=== PATIENT | female | born 1950 | race Caucasian/White ===

== ENCOUNTER 2022-10-27 16:50 | Emergency (ER) | payer OTHER ==
--- OUTSIDE RECORDS SUMMARY | 2022-10-27 16:56 | XMS REPORT | Continuity of Care Document ---
:[address] [facility] t Address [address] [place] [address] [address] [place] [address] Care Team Providers Name Role Phone Yisel Diehl Primary Care Physician Team, [facility] Attending Clinician Unavailsandra Alvarado RN, Jennifer Attending Clinician Unavailable Only, Ang Db Test Attending Clinician Unavailable Martha Weiner Attending Clinician MARTHA OSCAR Attending Clinician Unavailable FORREST SANCHEZ Attending Clinician Unavailable Doctor Unassigned, [place] Attending Clinician Unavailable YAIMA HANLEY Attending Clinician Unavailable Yaima Godinez Attending Clinician Amanda REAL, Alison Pruett Attending Clinician Unavailable Adarsh Cevallos PA-C Attending Clinician LIVIER OJEDA Attending Clinician Unavailable Geronimo ESPINOZA, Livier Attending Clinician SYLVIA DUENAS Attending Clinician Unavailable Sylvia Duenas NP Attending Clinician JEROME PALACIOS Attending Clinician Unavailable Jerome Palacios MD Attending Clinician Yisel Diehl Attending Clinician Kaela Hui Attending Clinician KAELA HUI Attending Clinician Unavailable Lab, Adc Fam Pob I Attending Clinician Unavailable Marlys Diop Attending Clinician Freddy Hadley Attending Clinician FREDDY METCALF Attending Clinician Unavailable RADIOLOGY Attending Clinician Unavailable Hair Monahan Attending Clinician SYLVIA DUENAS Admitting Clinician Unavailable FREDDY METCALF Admitting Clinician Unavailable DARIN DODD II Admitting Clinician Unavailable YISEL DIEHL Admitting Clinician Unavailable Payers Payer Name Policy Type Policy Number Effective Date Expiration Date S ource Problems Condition Condition Condition Status Onset Resolution Last Treating Co mments Source Name Details Category Date Date Treatment Clinician Date RESCHEDULE RESCHEDUL Diagnosis Active 2016-12-13 Memharini E Active 11-19 10:24:00 l 11/19/2016 00:00: Kalia maya [address] CERVICALGI Diagnosis Active 2016-11-13 Memoria A, CERVICALGI 10-28 06:07:00 l CERVICAL A, 00:00: [place] DISC CERVICAL 00 DEGENERATI DISC ON DEGENERATI ON Active 10/28/2016 [facility] BEDDED BEDDED Diagnosis Active 2015-102016-10-16 Nc moria OUTPATIENT OUTPATIENT 07:14:00 l /CT GUIDED /CT GUIDED 00:00: Jose chery NECK BX NECK BX 00 Active 10/09/2016 [facility] M46.22 - M46.22 - Diagnosis Active 2015-102016-10-10 Memoria "OSTEOMYEL "OSTEOMYEL 12-08 14:05:00 l ITIS OF ITIS OF 00:01: Berhane VERTEBRA, VERTEBRA, 00 CER CER Active 10/07/2016 MARGOT Last Hyperlipid Hyperlipi Problem Resolve 2017-03-22 Anupama emia demia d 04:16:12 l (disorder) (disorder) Jose chery Resolved Problem 03/22/2017 [facility], STEVEN Last, STEVEN [place] Hypertensi Hypertens Problem Resolve 2017-03-22 Memoria ve zafar d 04:16:12 l disorder, disorder, Herm rene systemic systemic arterial arterial (disorder) (disorder) Resolved Problem 03/22/2017 [facility], STEVEN Last, OPIFidencio [place] Transient Transient Problem Resolve 2017-03-22 Memoria ischemic ischemic d 04:16:12 l attack attack [place] (disorder) (disorder) Resolved Problem 03/22/2017 [facility], STEVEN Last, OPIFidencio [place] Chronic Chronic Problem Active 2017-03-22 Nc moristeph obstructiv obstructiv 04:16:12 l e lung e lung [place] disease disease (disorder) (disorder) Active Problem 03/22/2017 [facility] STEVEN Last Degenerati Degenerat Problem Active 2017-03-22 Memoria on of ion of 04:16:12 l cervical cervical Kalia n interverte interverte bral disc bral disc (disorder) (disorder) Active Problem 03/22/2017 [facility] STEVEN Last Obesity Obesity Problem Active 2017-03-22 Me moria (disorder) (disorder) 04:16:12 l Active [place] Problem 03/22/2017 [facility] STEVEN Last Obstructiv Obstructi Problem Active 2017-03-22 Memoria e sleep ve sleep 04:16:12 l apnea apnea [place] syndrome syndrome (disorder) (disorder) Active Problem 03/22/2017 [facility] STEVEN Last OTHER OTHER Diagnosis Active 2016-12-13 Mem oria CERVICAL CERVICAL 10:24:00 l DISC DISC [place] DEGENERATI DEGENERATI ON, HIGH C ON, HIGH C Active [facility] CERVICALGI CERVICALG Diagnosis Active 2016-12-13 Memoria A IA Active 10:24:[address] [facility] No known No known Disease Unive rs active active ity of problems problems [facility] Allergies, Adverse Reactions, Alerts Allergy Allergy Status Severity Reaction(s) Onset Inactive Treating Comm ents Source Name Type Date Date Clinician Morphine Propensi Active Swelling 0 Univ ers ty to 06 ity of adverse 00:00: [place] reaction 00 Medical s Branch MORPHINE DRUG Active Swelling 0 Univer s INGREDI -06 ity of 00:00: [place] 00 Medical Branch MORPHINE DRUG Active Swelling Univer s INGREDI 05-05 ity of 00:00: Medical [place] Morphine Propensi Active Swelling arm Univ ers ty to 05-05 ity of adverse 00:00: [place] reaction 00 [facility] NO KNOWN Drug Active Univers ALLERGIE Class ity of S [facility] morphine morphine Active Justen Last Social History Social Habit Start Date Stop Date Quantity Comments Source History of Smokes tobacco University of tobacco use daily [facility] Exposure to 2022-02-09 2022-02-19 Not sure [facility] SARS-CoV-2 00:00:00 12:36:00 [facility] (event) [place] Tobacco use and 2021-04-16 2021-04-16 Smokeless tobacco Un iversity of exposure 00:00:00 00:00:00 non-user [facility] Social History 2016-10-07 2016-10-07 [facility] 18:49:18 18:49:18 [birth year] [facility] y of 00:00:00 00:00:00 [facility] Smoking Status Start Date Stop Date Source Smokes tobacco daily 2021-04-16 00:00:00 Univers ity of [facility] Unknown if ever smoked [facility] y of [facility] Medications Ordered Filled Start Stop Current Ordering Indication Dosage Frequency Signature Comments Components Source Medication Medication Date Date Medication? Clinician (SIG) Name Name traMADoL 2021- No [id number] 50mg 50 mg, U nivers (ULTRAM) 12-03 Oral, ONCE ity of tablet 50 03:15: 02:25 NOW, 1 [place] mg 00 :00 dose, On [facility] 12/02/21 at 2115, CYNTHIA ketorolac 2021- No [id number] 30mg 30 mg, Univers (TORADOL) 12-03 Intramuscu ity of injection 03:15: 02:25 lar, ONCE, [place] 30 mg 00 :00 1 dose, On [facility] 12/02/21 at 2115, CYNTHIA cyclobenzap 2021- No [id number] 10mg 10 mg, Univers rine 12-03 Oral, ONCE ity of (FLEXERIL) 03:15: 02:25 NOW, 1 [place] tablet 10 00 :00 dose, On Medica l mg Mon Branch 12/02/21 at 2115, CYNTHIA dexamethaso 2021- No [id number] 10mg 10 mg, Univers ne 12-03 Intramuscu ity of (DECADRON 03:15: 02:25 lar, ONCE, [place] PHOSPHATE) 00 :00 1 dose, On Med ical injection Mon Branch 10 mg 12/02/21 at 211, STAT predniSONE 2021- No [id number] 40mg Take 2 Univers 20 mg 12-03 tablets by ity of tablet 00:00: 05:59 mouth [place] 00 :00 daily for Medical 5 days. Branch cyclobenzap Yes [id number] 10mg Take 1 Univers rine 10 mg 2-21 tablet by ity of tablet 00:00: mouth 3 [place] 00 (three) Medical times Branch daily as needed for Muscle Spasms. cyclobenzap Yes [id number] 10mg Take 1 Univers rine 10 mg 2-21 tablet by ity of tablet 00:00: mouth 3 [place] 00 (three) Medical times Branch daily as needed for Muscle Spasms. cyclobenzap Yes [id number] 10mg Take 1 Univers rine 10 mg 2-21 tablet by ity of tablet 00:00: mouth 3 [place] 00 (three) Medical times Branch daily as needed for Muscle Spasms. cyclobenzap Yes [id number] 10mg Take 1 Univers rine 10 mg 2-21 tablet by ity of tablet 00:00: mouth 3 [place] 00 (three) Medical times Branch daily as needed for Muscle Spasms. cyclobenzap Yes [id number] 10mg Take 1 Univers rine 10 mg 2-21 tablet by ity of tablet 00:00: mouth 3 [place] 00 (three) Medical times Branch daily as needed for Muscle Spasms. methylPREDN 2020-10 Yes [id number] Take by Univers ISolone 4 2-30 mouth ity of mg tablets 00:00: [place]-INSTRU [place] 00 CTIONS. Medical follow Branch package directions methylPREDN 2020-10 Yes [id number] Take by Univers ISolone 4 2-30 mouth ity of mg tablets 00:00: [place]-INSTRU [place] 00 CTIONS. Medical follow Branch package directions methylPREDN 2020-10 Yes [id number] Take by Univers ISolone 4 2-30 mouth ity of mg tablets 00:00: [place]-INSTRU [place] 00 CTIONS. Medical follow Branch package directions methylPREDN 2020-10 Yes [id number] Take by Univers ISolone 4 2-30 mouth ity of mg tablets 00:00: SEE-INSTRU [place] 00 CTIONS. Medical follow Branch package directions methylPREDN 2020-10 Yes [id number] Take by Univers ISolone 4 2-30 mouth ity of mg tablets 00:00: SEE-INSTRU [place] 00 CTIONS. Medical follow Branch package directions methylPREDN 2020-10 Yes [id number] Take by Univers ISolone 4 2-30 mouth ity of mg tablets 00:00: SEE-INSTRU [place] 00 CTIONS. Medical follow Branch package directions methylPREDN 2020-10 Yes [id number] Take by Univers ISolone 4 2-30 mouth ity of mg tablets 00:00: SEE-INSTRU [place] 00 CTIONS. Medical follow Branch package directions methylPREDN 2020-10 Yes [id number] Take by Univers ISolone 4 2-30 mouth ity of mg tablets 00:00: [place]-INSTRU [place] 00 CTIONS. Medical follow Branch package directions methylPREDN 2020-10 Yes [id number] Take by Univers ISolone 4 2-30 mouth ity of mg tablets 00:00: [place]-INSTRU [place] 00 CTIONS. Medical follow Branch package directions traMADoL 2020-10- No 50mg 50 mg, Univer s (ULTRAM) 10-09 Oral, ity of tablet 50 23:30: 22:35 ONCE, 1 [place] mg [place] :[place] dose, On Medical Thu Branch 10/09/21 at 1730, Routine ibuprofen 2020-10- No 600mg 600 mg, Uni vers (IBU) 10-09 Oral, ity of tablet 600 23:15: 22:34 ONCE, 1 [place] mg 00 :00 dose, On Medical Thu Branch 10/09/21 at 1715, CYNTHIA gabapentin 2020-10- No 300mg 300 mg, Un lisa (NEURONTIN) 10-09 Oral, ity of capsule 300 23:15: 22:34 ONCE, 1 [place] mg 00 :[place] dose, On Medical Wed Branch 10/09/21 at 1715, CYNTHIA cyclobenzap 2020-10- No 10mg 10 mg, Uni vers rine 10-09 Oral, ity of (FLEXERIL) 23:15: 22:34 ONCE, 1 [place] tablet 10 00 :00 dose, On Medica l mg Wed Branch 10/09/21 at 1715, Routine AZITHROMYCI 2020-10- No Take by Un lisa N 10-09 mouth. ity of (ZITHROMAX 19:22: 00:00 [place] Z-ROSALINDA ORAL) 15 :00 Medical Branch promethazin 2020-10- No [id number] 5mL Take 5 mL Univers e-codeine 10-09 by mouth 4 ity of 6.25-10 19:22: 00:00 (four) [place] mg/5 mL 15 :00 times Medical syrup daily as Branch needed for Cough. gabapentin 2020-10 Yes [id number] 300mg Take 1 Univers 300 mg 2-29 capsule by ity of capsule 00:00: mouth 3 [place] 00 (three) Medical times Branch daily as needed for Pain (scale 4-6) or Pain (scale 7-10). gabapentin 2020-10 Yes [id number] 300mg Take 1 Univers 300 mg 2-29 capsule by ity of capsule 00:00: mouth 3 [place] 00 (three) Medical times Branch daily as needed for Pain (scale 4-6) or Pain (scale 7-10). gabapentin 2020-10 Yes [id number] 300mg Take 1 Univers 300 mg 2-29 capsule by ity of capsule 00:00: mouth 3 [place] 00 (three) Medical times Branch daily as needed for Pain (scale 4-6) or Pain (scale 7-10). gabapentin 2020-10 Yes [id number] 300mg Take 1 Univers 300 mg 2-29 capsule by ity of capsule 00:00: mouth 3 [place] 00 (three) Medical times Branch daily as needed for Pain (scale 4-6) or Pain (scale 7-10). gabapentin 2020-10 Yes [id number] 300mg Take 1 Univers 300 mg 2-29 capsule by ity of capsule 00:00: mouth 3 00 (three) Medical times Branch daily as needed for Pain (scale 4-6) or Pain (scale 7-10). gabapentin 2020-10 Yes [id number] 300mg Take 1 Univers 300 mg 2-29 capsule by ity of capsule 00:00: mouth 3 [place] 00 (three) Medical times Branch daily as needed for Pain (scale 4-6) or Pain (scale 7-10). gabapentin 2020-10 Yes [id number] 300mg Take 1 Univers 300 mg 2-29 capsule by ity of capsule 00:00: mouth 3 [place] 00 (three) Medical times Branch daily as needed for Pain (scale 4-6) or Pain (scale 7-10). gabapentin 2020-10 Yes [id number] 300mg Take 1 Univers 300 mg 2-29 capsule by ity of capsule 00:00: mouth 3 [place] 00 (three) Medical times Branch daily as needed for Pain (scale 4-6) or Pain (scale 7-10). gabapentin 2020-10 Yes [id number] 300mg Take 1 Univers 300 mg 2-29 capsule by ity of capsule 00:00: mouth 3 (three) Medical times Branch daily as needed for Pain (scale 4-6) or Pain (scale 7-10). etodolac 2020-10- No [id number] 300mg Take 1 Univers 300 mg 2-29 -06 capsule by ity of capsule 00:00: 05:59 mouth 3 [place] 00 :00 (three) Medical times Branch daily with meals for 7 days. etodolac 2020-10- No [id number] 300mg Take 1 Univers 300 mg 2-29 -06 capsule by ity of capsule 00:00: 05:59 mouth 3 [place] 00 :00 (three) Medical times Branch daily with meals for 7 days. etodolac 2020-10- No [id number] 300mg Take 1 Univers 300 mg 2-29 -06 capsule by ity of capsule 00:00: 05:59 mouth 3 [place] 00 :00 (three) Medical times Branch daily with meals for 7 days. etodolac 2020-10- No [id number] 300mg Take 1 Univers 300 mg 2-29 -06 capsule by ity of capsule 00:00: 05:59 mouth 3 [place] 00 :00 (three) Medical times Branch daily with meals for 7 days. methocarbam 2020-10- No [id number] 1500mg Take 2 Univers oL 750 mg 10-15 tablets by ity of tablet 00:00: 05:59 mouth 4 [place] 00 :00 (four) Medical times [place] daily for 5 days. methocarbam 2020-10- No [id number] 1500mg Take 2 Univers oL 750 mg 10-15 tablets by ity of tablet 00:00: 05:59 mouth 4 [place] 00 :00 (four) Medical times [place] daily for 5 days. aspirin 81 2020-0 Yes [id number] 81mg Take 81 mg Univers mg EC 3-16 by mouth ity of tablet 21:28: daily. [address] aspirin 81 2020-0 Yes [id number] 81mg Take 81 mg Univers mg EC 3-16 by mouth ity of tablet 21:28: daily. [address] aspirin 81 2020-0 Yes [id number] 81mg Take 81 mg Univers mg EC 3-16 by mouth ity of tablet 21:28: daily. [address] aspirin 81 2020-0 Yes [id number] 81mg Take 81 mg Univers mg EC 3-16 by mouth ity of tablet 21:28: daily. [address] aspirin 81 2020-0 Yes [id number] 81mg Take 81 mg Univers mg EC 3-16 by mouth ity of tablet 21:28: daily. [address] aspirin 81 2020-0 Yes [id number] 81mg Take 81 mg Univers mg EC 3-16 by mouth ity of tablet 21:28: daily. [address] aspirin 81 2020-0 Yes [id number] 81mg Take 81 mg Univers mg EC 3-16 by mouth ity of tablet 21:28: daily. [address] aspirin 81 2020-0 Yes [id number] 81mg Take 81 mg Univers mg EC 3-16 by mouth ity of tablet 21:28: daily. [address] aspirin 81 2020-0 Yes [id number] 81mg Take 81 mg Univers mg EC 3-16 by mouth ity of tablet 21:28: daily. [address] clonazePAM 2020-0 Yes [id number] 1mg Take 1 mg Univers 1 mg tablet 3-16 by mouth ity of 21:28: daily. [place] 56 Medical Branch promethazin 2020-0 Yes [id number] 5mL Take 5 mL Univers e-codeine 3-16 by mouth 4 ity of 6.25-10 21:28: (four) [place] mg/5 mL 56 times Medical syrup daily as Branch needed for Cough. metoprolol 2020-0 Yes [id number] 50mg Take 50 mg Univers tartrate 50 3-16 by mouth 2 it y of mg tablet 21:28: (two) [place] 56 times Medical daily. Branch albuterol 2020-0 Yes [id number] 2{puff} Inhale 2 Univers (VENTOLIN 3-16 Puffs ity of HFA) 90 21:28: every 6 [place] mcg/actuati 56 (six) Medical on inhaler hours as Branc h needed for Wheezing or Shortness of Breath. HYDROcodone 2020-0 Yes [id number] 1{tbl} Take 1 Univers -acetaminop 3-16 tablet by ity of hen 7.5-325 21:28: mouth [place] mg per 56 every 6 Medical tablet (six) Branch hours as needed for Pain. clonazePAM 2020-0 Yes [id number] 1mg Take 1 mg Univers 1 mg tablet 3-16 by mouth ity of 21:28: daily. [place] [address] Medical Branch promethazin 2020-0 Yes [id number] 5mL Take 5 mL Univers e-codeine 3-16 by mouth 4 ity of 6.25-10 21:28: (four) [place] mg/5 mL 56 times Medical syrup daily as Branch needed for Cough. metoprolol 2020-0 Yes [id number] 50mg Take 50 mg Univers tartrate 50 3-16 by mouth 2 it y of mg tablet 21:28: (two) [place] 56 times Medical daily. Branch albuterol 2020-0 Yes [id number] 2{puff} Inhale 2 Univers (VENTOLIN 3-16 Puffs ity of HFA) 90 21:28: every 6 [place] mcg/actuati 56 (six) Medical on inhaler hours as Branc h needed for Wheezing or Shortness of Breath. HYDROcodone 2020-0 Yes [id number] 1{tbl} Take 1 Univers -acetaminop 3-16 tablet by ity of hen 7.5-325 21:28: mouth [place] mg per 56 every 6 Medical tablet (six) Branch hours as needed for Pain. clonazePAM 2020-0 Yes [id number] 1mg Take 1 mg Univers 1 mg tablet 3-16 by mouth ity of 21:28: daily. [place] [address] Medical Branch promethazin 2020-0 Yes [id number] 5mL Take 5 mL Univers e-codeine 3-16 by mouth 4 ity of 6.25-10 21:28: (four) [place] mg/5 mL 56 times Medical syrup daily as Branch needed for Cough. metoprolol 2020-0 Yes [id number] 50mg Take 50 mg Univers tartrate 50 3-16 by mouth 2 it y of mg tablet 21:28: (two) [place] 56 times Medical daily. Branch albuterol 2020-0 Yes [id number] 2{puff} Inhale 2 Univers (VENTOLIN 3-16 Puffs ity of HFA) 90 21:28: every 6 [place] mcg/actuati 56 (six) Medical on inhaler hours as Branc h needed for Wheezing or Shortness of Breath. HYDROcodone 2020-0 Yes [id number] 1{tbl} Take 1 Univers -acetaminop 3-16 tablet by ity of hen 7.5-325 21:28: mouth [place] mg per 56 every 6 Medical tablet (six) Branch hours as needed for Pain. clonazePAM 2020-0 Yes [id number] 1mg Take 1 mg Univers 1 mg tablet 3-16 by mouth ity of 21:28: daily. [place] [address] Medical Branch promethazin 2020-0 Yes [id number] 5mL Take 5 mL Univers e-codeine 3-16 by mouth 4 ity of 6.25-10 21:28: (four) [place] mg/5 mL 56 times Medical syrup daily as Branch needed for Cough. metoprolol 2020-0 Yes [id number] 50mg Take 50 mg Univers tartrate 50 3-16 by mouth 2 it y of mg tablet 21:28: (two) [place] 56 times Medical daily. Branch albuterol 2020-0 Yes [id number] 2{puff} Inhale 2 Univers (VENTOLIN 3-16 Puffs ity of HFA) 90 21:28: every 6 [place] mcg/actuati 56 (six) Medical on inhaler hours as Branc h needed for Wheezing or Shortness of Breath. HYDROcodone 2020-0 Yes [id number] 1{tbl} Take 1 Univers -acetaminop 3-16 tablet by ity of hen 7.5-325 21:28: mouth [place] mg per 56 every 6 Medical tablet (six) Branch hours as needed for Pain. clonazePAM 2020-0 Yes [id number] 1mg Take 1 mg Univers 1 mg tablet 3-16 by mouth ity of 21:28: daily. [place] [address] Medical Branch promethazin 2020-0 Yes [id number] 5mL Take 5 mL Univers e-codeine 3-16 by mouth 4 ity of 6.25-10 21:28: (four) [place] mg/5 mL 56 times Medical syrup daily as Branch needed for Cough. metoprolol 2020-0 Yes [id number] 50mg Take 50 mg Univers tartrate 50 3-16 by mouth 2 it y of mg tablet 21:28: (two) [place] 56 times Medical daily. Branch albuterol 2020-0 Yes [id number] 2{puff} Inhale 2 Univers (VENTOLIN 3-16 Puffs ity of HFA) 90 21:28: every 6 [place] mcg/actuati 56 (six) Medical on inhaler hours as Branc h needed for Wheezing or Shortness of Breath. HYDROcodone 2020-0 Yes [id number] 1{tbl} Take 1 Univers -acetaminop 3-16 tablet by ity of hen 7.5-325 21:28: mouth [place] mg per 56 every 6 Medical tablet (six) Branch hours as needed for Pain. clonazePAM 2020-0 Yes [id number] 1mg Take 1 mg Univers 1 mg tablet 3-16 by mouth ity of 21:28: daily. [place] [address] Medical Branch promethazin 2020-0 Yes [id number] 5mL Take 5 mL Univers e-codeine 3-16 by mouth 4 ity of 6.25-10 21:28: (four) [place] mg/5 mL 56 times Medical syrup daily as Branch needed for Cough. metoprolol 2020-0 Yes [id number] 50mg Take 50 mg Univers tartrate 50 3-16 by mouth 2 it y of mg tablet 21:28: (two) [place] 56 times Medical daily. Branch albuterol 2020-0 Yes [id number] 2{puff} Inhale 2 Univers (VENTOLIN 3-16 Puffs ity of HFA) 90 21:28: every 6 [place] mcg/actuati 56 (six) Medical on inhaler hours as Branc h needed for Wheezing or Shortness of Breath. HYDROcodone 2020-0 Yes [id number] 1{tbl} Take 1 Univers -acetaminop 3-16 tablet by ity of hen 7.5-325 21:28: mouth [place] mg per 56 every 6 Medical tablet (six) Branch hours as needed for Pain. clonazePAM 2020-0 Yes [id number] 1mg Take 1 mg Univers 1 mg tablet 3-16 by mouth ity of 21:28: daily. [place] [address] Medical Branch promethazin 2020-0 Yes [id number] 5mL Take 5 mL Univers e-codeine 3-16 by mouth 4 ity of 6.25-10 21:28: (four) [place] mg/5 mL 56 times Medical syrup daily as Branch needed for Cough. metoprolol 2020-0 Yes [id number] 50mg Take 50 mg Univers tartrate 50 3-16 by mouth 2 it y of mg tablet 21:28: (two) [place] 56 times Medical daily. Branch albuterol 2020-0 Yes [id number] 2{puff} Inhale 2 Univers (VENTOLIN 3-16 Puffs ity of HFA) 90 21:28: every 6 [place] mcg/actuati 56 (six) Medical on inhaler hours as Branc h needed for Wheezing or Shortness of Breath. HYDROcodone 2020-0 Yes [id number] 1{tbl} Take 1 Univers -acetaminop 3-16 tablet by ity of hen 7.5-325 21:28: mouth [place] mg per 56 every 6 Medical tablet (six) Branch hours as needed for Pain. clonazePAM 2020-0 Yes [id number] 1mg Take 1 mg Univers 1 mg tablet 3-16 by mouth ity of 21:28: daily. [place] [address] Medical Branch promethazin 2020-0 Yes [id number] 5mL Take 5 mL Univers e-codeine 3-16 by mouth 4 ity of 6.25-10 21:28: (four) [place] mg/5 mL 56 times Medical syrup daily as Branch needed for Cough. metoprolol 2020-0 Yes [id number] 50mg Take 50 mg Univers tartrate 50 3-16 by mouth 2 it y of mg tablet 21:28: (two) [place] 56 times Medical daily. Branch albuterol 2020-0 Yes [id number] 2{puff} Inhale 2 Univers (VENTOLIN 3-16 Puffs ity of HFA) 90 21:28: every 6 [place] mcg/actuati 56 (six) Medical on inhaler hours as Branc h needed for Wheezing or Shortness of Breath. HYDROcodone 2020-0 Yes [id number] 1{tbl} Take 1 Univers -acetaminop 3-16 tablet by ity of hen 7.5-325 21:28: mouth [place] mg per 56 every 6 Medical tablet (six) Branch hours as needed for Pain. clonazePAM 2020-0 Yes [id number] 1mg Take 1 mg Univers 1 mg tablet 3-16 by mouth ity of 21:28: daily. [address] Branch promethazin 2020-0 Yes [id number] 5mL Take 5 mL Univers e-codeine 3-16 by mouth 4 ity of 6.25-10 21:28: (four) [place] mg/5 mL 56 times Medical syrup daily as Branch needed for Cough. metoprolol 2020-0 Yes [id number] 50mg Take 50 mg Univers tartrate 50 3-16 by mouth 2 it y of mg tablet 21:28: (two) [place] 56 times Medical daily. Branch albuterol 2020-0 Yes [id number] 2{puff} Inhale 2 Univers (VENTOLIN 3-16 Puffs ity of HFA) 90 21:28: every 6 [place] mcg/actuati 56 (six) Medical on inhaler hours as Branc h needed for Wheezing or Shortness of Breath. HYDROcodone 2020-0 Yes [id number] 1{tbl} Take 1 Univers -acetaminop 3-16 tablet by ity of hen 7.5-325 21:28: mouth [place] mg per 56 every 6 Medical tablet (six) Branch hours as needed for Pain. aspirin 81 2020-0 Yes [id number] 81mg Take 81 mg Univers mg EC 3-16 by mouth ity of tablet 16:28: daily. [address] aspirin 81 2020-0 Yes [id number] 81mg Take 81 mg Univers mg EC 3-16 by mouth ity of tablet 16:28: daily. [address] aspirin 81 2020-0 Yes [id number] 81mg Take 81 mg Univers mg EC 3-16 by mouth ity of tablet 16:28: daily. [address] aspirin 81 2020-0 Yes [id number] 81mg Take 81 mg Univers mg EC 3-16 by mouth ity of tablet 16:28: daily. [address] aspirin 81 2020-0 Yes [id number] 81mg Take 81 mg Univers mg EC 3-16 by mouth ity of tablet 16:28: daily. [address] aspirin 81 2020-0 Yes [id number] 81mg Take 81 mg Univers mg EC 3-16 by mouth ity of tablet 16:28: daily. [address] aspirin 81 2020-0 Yes [id number] 81mg Take 81 mg Univers mg EC 3-16 by mouth ity of tablet 16:28: daily. [address] aspirin 81 2020-0 Yes [id number] 81mg Take 81 mg Univers mg EC 3-16 by mouth ity of tablet 16:28: daily. [address] aspirin 81 2020-0 Yes [id number] 81mg Take 81 mg Univers mg EC 3-16 by mouth ity of tablet 16:28: daily. [address] clonazePAM 2020-0 Yes [id number] 1mg Take 1 mg Univers 1 mg tablet 3-16 by mouth ity of 16:28: daily. [address] metoprolol 2020-0 Yes [id number] 50mg Take 50 mg Univers tartrate 50 3-16 by mouth 2 it y of mg tablet 16:28: (two) [place] 56 times Medical daily. Branch albuterol 2020-0 Yes [id number] 2{puff} Inhale 2 Univers (VENTOLIN 3-16 Puffs ity of HFA) 90 16:28: every 6 [place] mcg/actuati 56 (six) Medical on inhaler hours as Branc h needed for Wheezing or Shortness of Breath. HYDROcodone 2020-0 Yes [id number] 1{tbl} Take 1 [facility] -acetaminop 3-16 tablet by ity of hen 7.5-325 16:28: mouth [place] mg per 56 every 6 Medical tablet (six) Branch hours as needed for Pain. clonazePAM 2020-0 Yes [id number] 1mg Take 1 mg [facility] 1 mg tablet 3-16 by mouth ity of 16:28: daily. [address] metoprolol 2020-0 Yes [id number] 50mg Take 50 mg [facility] tartrate 50 3-16 by mouth 2 it y of mg tablet 16:28: (two) [place] 56 times Medical daily. Branch albuterol 2020-0 Yes [id number] 2{puff} Inhale 2 [facility] (VENTOLIN 3-16 Puffs ity of HFA) 90 16:28: every 6 [place] mcg/actuati 56 (six) Medical on inhaler hours as Branc h needed for Wheezing or Shortness of Breath. HYDROcodone 2020-0 Yes [id number] 1{tbl} Take 1 [facility] -acetaminop 3-16 tablet by ity of hen 7.5-325 16:28: mouth [place] mg per 56 every 6 Medical tablet (six) Branch hours as needed for Pain. clonazePAM 2020-0 Yes [id number] 1mg Take 1 mg [facility] 1 mg tablet 3-16 by mouth ity of 16:28: daily. [address] metoprolol 2020-0 Yes [id number] 50mg Take 50 mg [facility] tartrate 50 3-16 by mouth 2 it y of mg tablet 16:28: (two) [place] 56 times Medical daily. Branch albuterol 2020-0 Yes [id number] 2{puff} Inhale 2 [facility] (VENTOLIN 3-16 Puffs ity of HFA) 90 16:28: every 6 [place] mcg/actuati 56 (six) Medical on inhaler hours as Branc h needed for Wheezing or Shortness of Breath. HYDROcodone 2020-0 Yes [id number] 1{tbl} Take 1 [facility] -acetaminop 3-16 tablet by ity of hen 7.5-325 16:28: mouth [place] mg per 56 every 6 Medical tablet (six) Branch hours as needed for Pain. clonazePAM 2020-0 Yes [id number] 1mg Take 1 mg [facility] 1 mg tablet 3-16 by mouth ity of 16:28: daily. [address] metoprolol 2020-0 Yes [id number] 50mg Take 50 mg [facility] tartrate 50 3-16 by mouth 2 it y of mg tablet 16:28: (two) [place] 56 times Medical daily. Branch albuterol 2020-0 Yes [id number] 2{puff} Inhale 2 [facility] (VENTOLIN 3-16 Puffs ity of HFA) 90 16:28: every 6 [place] mcg/actuati 56 (six) Medical on inhaler hours as Branc h needed for Wheezing or Shortness of Breath. HYDROcodone 2020-0 Yes [id number] 1{tbl} Take 1 [facility] -acetaminop 3-16 tablet by ity of hen 7.5-325 16:28: mouth [place] mg per 56 every 6 Medical tablet (six) Branch hours as needed for Pain. clonazePAM 2020-0 Yes [id number] 1mg Take 1 mg [facility] 1 mg tablet 3-16 by mouth ity of 16:28: daily. [address] metoprolol 2020-0 Yes [id number] 50mg Take 50 mg [facility] tartrate 50 3-16 by mouth 2 it y of mg tablet 16:28: (two) [place] 56 times Medical daily. Branch albuterol 2020-0 Yes [id number] 2{puff} Inhale 2 [facility] (VENTOLIN 3-16 Puffs ity of HFA) 90 16:28: every 6 [place] mcg/actuati 56 (six) Medical on inhaler hours as Branc h needed for Wheezing or Shortness of Breath. HYDROcodone 2020-0 Yes [id number] 1{tbl} Take 1 [facility] -acetaminop 3-16 tablet by ity of hen 7.5-325 16:28: mouth [place] mg per 56 every 6 Medical tablet (six) Branch hours as needed for Pain. clonazePAM 2020-0 Yes [id number] 1mg Take 1 mg [facility] 1 mg tablet 3-16 by mouth ity of 16:28: daily. [address] metoprolol 2020-0 Yes [id number] 50mg Take 50 mg [facility] tartrate 50 3-16 by mouth 2 it y of mg tablet 16:28: (two) [place] 56 times Medical daily. Branch albuterol 2020-0 Yes [id number] 2{puff} Inhale 2 [facility] (VENTOLIN 3-16 Puffs ity of HFA) 90 16:28: every 6 [place] mcg/actuati 56 (six) Medical on inhaler hours as Branc h needed for Wheezing or Shortness of Breath. HYDROcodone 2020-0 Yes [id number] 1{tbl} Take 1 [facility] -acetaminop 3-16 tablet by ity of hen 7.5-325 16:28: mouth [place] mg per 56 every 6 Medical tablet (six) Branch hours as needed for Pain. clonazePAM 2020-0 Yes [id number] 1mg Take 1 mg [facility] 1 mg tablet 3-16 by mouth ity of 16:28: daily. [address] metoprolol 2020-0 Yes [id number] 50mg Take 50 mg [facility] tartrate 50 3-16 by mouth 2 it y of mg tablet 16:28: (two) [place] 56 times Medical daily. Branch albuterol 2020-0 Yes [id number] 2{puff} Inhale 2 [facility] (VENTOLIN 3-16 Puffs ity of HFA) 90 16:28: every 6 [place] mcg/actuati 56 (six) Medical on inhaler hours as Branc h needed for Wheezing or Shortness of Breath. HYDROcodone 2020-0 Yes [id number] 1{tbl} Take 1 [facility] -acetaminop 3-16 tablet by ity of hen 7.5-325 16:28: mouth [place] mg per 56 every 6 Medical tablet (six) Branch hours as needed for Pain. clonazePAM 2020-0 Yes [id number] 1mg Take 1 mg [facility] 1 mg tablet 3-16 by mouth ity of 16:28: daily. [address] Branch metoprolol 2020-0 Yes [id number] 50mg Take 50 mg [facility] tartrate 50 3-16 by mouth 2 it y of mg tablet 16:28: (two) [place] 56 times Medical daily. Branch albuterol 2020-0 Yes [id number] 2{puff} Inhale 2 [facility] (VENTOLIN 3-16 Puffs ity of HFA) 90 16:28: every 6 [place] mcg/actuati 56 (six) Medical on inhaler hours as Branc h needed for Wheezing or Shortness of Breath. HYDROcodone 2020-0 Yes [id number] 1{tbl} Take 1 [facility] -acetaminop 3-16 tablet by ity of hen 7.5-325 16:28: mouth [place] mg per 56 every 6 Medical tablet (six) Branch hours as needed for Pain. clonazePAM 2020-0 Yes [id number] 1mg Take 1 mg [facility] 1 mg tablet 3-16 by mouth ity of 16:28: daily. [address] metoprolol 2020-0 Yes [id number] 50mg Take 50 mg [facility] tartrate 50 3-16 by mouth 2 it y of mg tablet 16:28: (two) [place] 56 times Medical daily. Branch albuterol 2020-0 Yes [id number] 2{puff} Inhale 2 [facility] (VENTOLIN 3-16 Puffs ity of HFA) 90 16:28: every 6 [place] mcg/actuati 56 (six) Medical on inhaler hours as Branc h needed for Wheezing or Shortness of Breath. HYDROcodone 2020-0 Yes [id number] 1{tbl} Take 1 [facility] -acetaminop 3-16 tablet by ity of hen 7.5-325 16:28: mouth [place] mg per 56 every 6 Medical tablet (six) Branch hours as needed for Pain. cefTRIAXone 2020-0 2020- No 1000mg 1,000 mg, [facility] (ROCEPHIN) 12-16 Intramuscu it y of injection 00:30: 23:38 [place], ONCE, [place] 1,000 mg 00 :00 1 dose, Medical 12/16/19 Branch at 1830, CYNTHIA
Re ason for Anti-Infec tive: Documented Infection< br>Documen omari Infection Site: Respirator y
Durat ion of Therapy: 7 days dexamethaso 2019- No 10mg 10 mg, Uni vers ne 12-16 Intramuscu ity of (DECADRON 00:30: 23:33 [place], ONCE, [place] PHOSPHATE) 00 :00 1 dose, Medica l injection 12/16/19 Bran ch 10 mg at 1830, STAT ibuprofen 2019- No 800mg 800 mg, Uni vers (IBU) 12-16 Oral, ity of tablet 800 00:30: 23:33 ONCE, 1 [place] mg 00 :00 dose, Fri Medical 12/16/19 at Branch 1830, CYNTHIA guaiFENesin 2019- No 200mg 200 mg, U nivers 100 mg/5 mL 12-16 Oral, ity of solution 00:30: 23:33 ONCE, 1 [place] 200 mg 00 :00 dose, Fri Medical 12/16/19 at Branch 1830, CYNTHIA cefdinir 2020- No [id number] 300mg Take 1 [facility] 300 mg 12-1615 capsule by ity of capsule 00:00: 04:59 mouth 2 [place] 00 :00 (two) Medical times Branch daily for 7 days. albuterol 2018-10 Yes [id number] 2.5mg Inhale 3 [facility] 2.5 mg /3 2-12 mL every 4 ity of mL (0.083 00:00: (four) [place] %) 00 hours as Medical nebulizer needed for Bran ch solution Wheezing or Shortness of Breath. ibuprofen 2018-10 Yes [id number] 600mg Take 1 [facility] 600 mg 2-12 tablet by ity of tablet 00:00: mouth [place] 00 every 6 Medical (six) Branch hours as needed for Pain (scale 4-6). benzonatate 2018-10 Yes [id number] 100mg Take 1 [facility] 100 mg 2-12 capsule by ity of capsule 00:00: mouth 3 [place] 00 (three) Medical times Branch daily as needed for Cough. methylPREDN 2018-10 Yes [id number] Take by [facility] ISolone 2-12 mouth ity of (MEDROL, 00:00: SEE-INSTRU [place] ROSALINDA,) 4 mg 00 CTIONS. Medica l tablets follow Branch package directions albuterol 2018-10 Yes [id number] 2{puff} Inhale 2 [facility] (PROAIR 2-12 Puffs ity of HFA) 90 00:00: every 6 [place] mcg/actuati 00 (six) Medical on inhaler hours as Branc h needed for Wheezing or Shortness of Breath. albuterol 2018-10 Yes [id number] 2.5mg Inhale 3 [facility] 2.5 mg /3 2-12 mL every 4 ity of mL (0.083 00:00: (four) [place] %) 00 hours as Medical nebulizer needed for Bran ch solution Wheezing or Shortness of Breath. ibuprofen 2018-10 Yes [id number] 600mg Take 1 [facility] 600 mg 2-12 tablet by ity of tablet 00:00: mouth [place] 00 every 6 Medical (six) Branch hours as needed for Pain (scale 4-6). benzonatate 2018-10 Yes [id number] 100mg Take 1 [facility] 100 mg 2-12 capsule by ity of capsule 00:00: mouth 3 [place] 00 (three) Medical times Branch daily as needed for Cough. methylPREDN 2018-10 Yes [id number] Take by [facility] ISolone 2-12 mouth ity of (MEDROL, 00:00: SEE-INSTRU [place] ROS[place]IN[place],) 4 mg 00 CTIONS. Medica l tablets follow Branch package directions albuterol 2018-10 Yes [id number] 2{puff} Inhale 2 [facility] (PROAIR 2-12 Puffs ity of HFA) 90 00:00: every 6 [place] mcg/actuati 00 (six) Medical on inhaler hours as Branc h needed for Wheezing or Shortness of Breath. albuterol 2018-10 Yes [id number] 2.5mg Inhale 3 [facility] 2.5 mg /3 2-12 mL every 4 ity of mL (0.083 00:00: (four) [place] %) 00 hours as Medical nebulizer needed for Bran ch solution Wheezing or Shortness of Breath. ibuprofen 2018-10 Yes [id number] 600mg Take 1 [facility] 600 mg 2-12 tablet by ity of tablet 00:00: mouth [place] 00 every 6 Medical (six) Branch hours as needed for Pain (scale 4-6). benzonatate 2018-10 Yes [id number] 100mg Take 1 [facility] 100 mg 2-12 capsule by ity of capsule 00:00: mouth 3 [place] 00 (three) Medical times Branch daily as needed for Cough. methylPREDN 2018-10 Yes [id number] Take by [facility] ISolone 2-12 mouth ity of (MEDROL, 00:00: SEE-INSTRU [place],) 4 mg 00 CTIONS. Medica l tablets follow Branch package directions albuterol 2018-10 Yes [id number] 2{puff} Inhale 2 [facility] (PROAIR 2-12 Puffs ity of HFA) 90 00:00: every 6 [place] mcg/actuati 00 (six) Medical on inhaler hours as Branc h needed for Wheezing or Shortness of Breath. albuterol 2018-10 Yes [id number] 2.5mg Inhale 3 [facility] 2.5 mg /3 2-12 mL every 4 ity of mL (0.083 00:00: (four) [place] %) 00 hours as Medical nebulizer needed for Bran ch solution Wheezing or Shortness of Breath. ibuprofen 2018-10 Yes [id number] 600mg Take 1 [facility] 600 mg 2-12 tablet by ity of tablet 00:00: mouth [place] 00 every 6 Medical (six) Branch hours as needed for Pain (scale 4-6). benzonatate 2018-10 Yes [id number] 100mg Take 1 [facility] 100 mg 2-12 capsule by ity of capsule 00:00: mouth 3 [place] 00 (three) Medical times Branch daily as needed for Cough. methylPREDN 2018-10 Yes [id number] Take by [facility] ISolone 2-12 mouth ity of (MEDROL, 00:00: SEE-INSTRU [place],) 4 mg 00 CTIONS. Medica l tablets follow Branch package directions albuterol 2018-10 Yes [id number] 2{puff} Inhale 2 [facility] (PROAIR 2-12 Puffs ity of HFA) 90 00:00: every 6 [place] mcg/actuati 00 (six) Medical on inhaler hours as Branc h needed for Wheezing or Shortness of Breath. albuterol 2018-10 Yes [id number] 2.5mg Inhale 3 [facility] 2.5 mg /3 2-12 mL every 4 ity of mL (0.083 00:00: (four) [place] %) 00 hours as Medical nebulizer needed for Bran ch solution Wheezing or Shortness of Breath. ibuprofen 2018-10 Yes [id number] 600mg Take 1 [facility] 600 mg 2-12 tablet by ity of tablet 00:00: mouth [place] 00 every 6 Medical (six) Branch hours as needed for Pain (scale 4-6). benzonatate 2018-10 Yes [id number] 100mg Take 1 [facility] 100 mg 2-12 capsule by ity of capsule 00:00: mouth 3 [place] 00 (three) Medical times Branch daily as needed for Cough. methylPREDN 2018-10 Yes [id number] Take by [facility] ISolone 2-12 mouth ity of (MEDROL, 00:00: SEE-INSTRU [place],) 4 mg 00 CTIONS. Medica l tablets follow Branch package directions albuterol 2018-10 Yes [id number] 2{puff} Inhale 2 [facility] (PROAIR 2-12 Puffs ity of HFA) 90 00:00: every 6 [place] mcg/actuati 00 (six) Medical on inhaler hours as Branc h needed for Wheezing or Shortness of Breath. albuterol 2018-10 Yes [id number] 2.5mg Inhale 3 [facility] 2.5 mg /3 2-12 mL every 4 ity of mL (0.083 00:00: (four) [place] %) 00 hours as Medical nebulizer needed for Bran ch solution Wheezing or Shortness of Breath. ibuprofen 2018-10 Yes [id number] 600mg Take 1 [facility] 600 mg 2-12 tablet by ity of tablet 00:00: mouth [place] 00 every 6 Medical (six) Branch hours as needed for Pain (scale 4-6). benzonatate 2018-10 Yes [id number] 100mg Take 1 [facility] 100 mg 2-12 capsule by ity of capsule 00:00: mouth 3 [place] 00 (three) Medical times Branch daily as needed for Cough. methylPREDN 2018-10 Yes [id number] Take by [facility] ISolone 2-12 mouth ity of (MEDROL, 00:00: SEE-INSTRU [place],) 4 mg 00 CTIONS. Medica l tablets follow Branch package directions albuterol 2018-10 Yes [id number] 2{puff} Inhale 2 [facility] (PROAIR 2-12 Puffs ity of HFA) 90 00:00: every 6 [place] mcg/actuati 00 (six) Medical on inhaler hours as Branc h needed for Wheezing or Shortness of Breath. albuterol 2018-10 Yes [id number] 2.5mg Inhale 3 [facility] 2.5 mg /3 2-12 mL every 4 ity of mL (0.083 00:00: (four) [place] %) 00 hours as Medical nebulizer needed for Bran ch solution Wheezing or Shortness of Breath. ibuprofen 2018-10 Yes [id number] 600mg Take 1 [facility] 600 mg 2-12 tablet by ity of tablet 00:00: mouth [place] 00 every 6 Medical (six) Branch hours as needed for Pain (scale 4-6). benzonatate 2018-10 Yes [id number] 100mg Take 1 [facility] 100 mg 2-12 capsule by ity of capsule 00:00: mouth 3 [place] 00 (three) Medical times Branch daily as needed for Cough. methylPREDN 2018-10 Yes [id number] Take by [facility] ISolone 2-12 mouth ity of (MEDROL, 00:00: SEE-INSTRU [place],) 4 mg 00 CTIONS. Medica l tablets follow Branch package directions albuterol 2018-10 Yes [id number] 2{puff} Inhale 2 [facility] (PROAIR 2-12 Puffs ity of HFA) 90 00:00: every 6 [place] mcg/actuati 00 (six) Medical on inhaler hours as Branc h needed for Wheezing or Shortness of Breath. albuterol 2018-10 Yes [id number] 2.5mg Inhale 3 [facility] 2.5 mg /3 2-12 mL every 4 ity of mL (0.083 00:00: (four) [place] %) 00 hours as Medical nebulizer needed for Bran ch solution Wheezing or Shortness of Breath. ibuprofen 2018-10 Yes [id number] 600mg Take 1 [facility] 600 mg 2-12 tablet by ity of tablet 00:00: mouth [place] 00 every 6 Medical (six) Branch hours as needed for Pain (scale 4-6). benzonatate 2018-10 Yes [id number] 100mg Take 1 [facility] 100 mg 2-12 capsule by ity of capsule 00:00: mouth 3 [place] 00 (three) Medical times Branch daily as needed for Cough. methylPREDN 2018-10 Yes [id number] Take by [facility] ISolone 2-12 mouth ity of (MEDROL, 00:00: SEE-INSTRU [place],) 4 mg 00 CTIONS. Medica l tablets follow Branch package directions albuterol 2018-10 Yes [id number] 2{puff} Inhale 2 [facility] (PROAIR 2-12 Puffs ity of HFA) 90 00:00: every 6 [place] mcg/actuati 00 (six) Medical on inhaler hours as Branc h needed for Wheezing or Shortness of Breath. albuterol 2018-10 Yes [id number] 2.5mg Inhale 3 [facility] 2.5 mg /3 2-12 mL every 4 ity of mL (0.083 00:00: (four) [place] %) 00 hours as Medical nebulizer needed for Bran ch solution Wheezing or Shortness of Breath. albuterol 2018-10 Yes [id number] 2{puff} Inhale 2 [facility] (PROAIR 2-12 Puffs ity of HFA) 90 00:00: every 6 [place] mcg/actuati 00 (six) Medical on inhaler hours as Branc h needed for Wheezing or Shortness of Breath. albuterol 2018-10 Yes [id number] 2.5mg Inhale 3 [facility] 2.5 mg /3 2-12 mL every 4 ity of mL (0.083 00:00: (four) [place] %) 00 hours as Medical nebulizer needed for Bran ch solution Wheezing or Shortness of Breath. albuterol 2018-10 Yes [id number] 2{puff} Inhale 2 [facility] (PROAIR 2-12 Puffs ity of HFA) 90 00:00: every 6 [place] mcg/actuati 00 (six) Medical on inhaler hours as Branc h needed for Wheezing or Shortness of Breath. albuterol 2018-10 Yes [id number] 2.5mg Inhale 3 [facility] 2.5 mg /3 2-12 mL every 4 ity of mL (0.083 00:00: (four) [place] %) 00 hours as Medical nebulizer needed for Bran ch solution Wheezing or Shortness of Breath. albuterol 2018-10 Yes [id number] 2{puff} Inhale 2 [facility] (PROAIR 2-12 Puffs ity of HFA) 90 00:00: every 6 [place] mcg/actuati 00 (six) Medical on inhaler hours as Branc h needed for Wheezing or Shortness of Breath. albuterol 2018-10 Yes [id number] 2.5mg Inhale 3 [facility] 2.5 mg /3 2-12 mL every 4 ity of mL (0.083 00:00: (four) [place] %) 00 hours as Medical nebulizer needed for Bran ch solution Wheezing or Shortness of Breath. albuterol 2018-10 Yes [id number] 2{puff} Inhale 2 [facility] (PROAIR 2-12 Puffs ity of HFA) 90 00:00: every 6 [place] mcg/actuati 00 (six) Medical on inhaler hours as Branc h needed for Wheezing or Shortness of Breath. albuterol 2018-10 Yes [id number] 2.5mg Inhale 3 [facility] 2.5 mg /3 2-12 mL every 4 ity of mL (0.083 00:00: (four) [place] %) 00 hours as Medical nebulizer needed for Bran ch solution Wheezing or Shortness of Breath. albuterol 2018-10 Yes [id number] 2{puff} Inhale 2 [facility] (PROAIR 2-12 Puffs ity of HFA) 90 00:00: every 6 [place] mcg/actuati 00 (six) Medical on inhaler hours as Branc h needed for Wheezing or Shortness of Breath. albuterol 2018-10 Yes [id number] 2.5mg Inhale 3 [facility] 2.5 mg /3 2-12 mL every 4 ity of mL (0.083 00:00: (four) [place] %) 00 hours as Medical nebulizer needed for Bran ch solution Wheezing or Shortness of Breath. albuterol 2018-10 Yes [id number] 2{puff} Inhale 2 [facility] (PROAIR 2-12 Puffs ity of HFA) 90 00:00: every 6 [place] mcg/actuati 00 (six) Medical on inhaler hours as Branc h needed for Wheezing or Shortness of Breath. albuterol 2018-10 Yes [id number] 2.5mg Inhale 3 [facility] 2.5 mg /3 2-12 mL every 4 ity of mL (0.083 00:00: (four) [place] %) 00 hours as Medical nebulizer needed for Bran ch solution Wheezing or Shortness of Breath. albuterol 2018-10 Yes [id number] 2{puff} Inhale 2 [facility] (PROAIR 2-12 Puffs ity of HFA) 90 00:00: every 6 [place] mcg/actuati 00 (six) Medical on inhaler hours as Branc h needed for Wheezing or Shortness of Breath. albuterol 2018-10 Yes [id number] 2.5mg Inhale 3 [facility] 2.5 mg /3 2-12 mL every 4 ity of mL (0.083 00:00: (four) [place] %) 00 hours as Medical nebulizer needed for Bran ch solution Wheezing or Shortness of Breath. albuterol 2018-10 Yes [id number] 2{puff} Inhale 2 [facility] (PROAIR 2-12 Puffs ity of HFA) 90 00:00: every 6 [place] mcg/actuati 00 (six) Medical on inhaler hours as Branc h needed for Wheezing or Shortness of Breath. albuterol 2018-10 Yes [id number] 2.5mg Inhale 3 [facility] 2.5 mg /3 2-12 mL every 4 ity of mL (0.083 00:00: (four) [place] %) 00 hours as Medical nebulizer needed for Bran ch solution Wheezing or Shortness of Breath. albuterol 2018-10 Yes [id number] 2{puff} Inhale 2 [facility] (PROAIR 2-12 Puffs ity of HFA) 90 00:00: every 6 [place] mcg/actuati 00 (six) Medical on inhaler hours as Branc h needed for Wheezing or Shortness of Breath. albuterol 2018-10 Yes [id number] 2.5mg Inhale 3 [facility] 2.5 mg /3 2-12 mL every 4 ity of mL (0.083 00:00: (four) [place] %) 00 hours as Medical nebulizer needed for Bran ch solution Wheezing or Shortness of Breath. ibuprofen 2018-10 Yes [id number] 600mg Take 1 [facility] 600 mg 2-12 tablet by ity of tablet 00:00: mouth [place] 00 every 6 Medical (six) Branch hours as needed for Pain (scale 4-6). benzonatate 2018-10 Yes [id number] 100mg Take 1 [facility] 100 mg 2-12 capsule by ity of capsule 00:00: mouth 3 [place] 00 (three) Medical times Branch daily as needed for Cough. methylPREDN 2018-10 Yes [id number] Take by [facility] ISolone 2-12 mouth ity of (MEDROL, 00:00: SEE-INSTRU [place],) 4 mg 00 CTIONS. Medica l tablets follow Branch package directions albuterol 2018-10 Yes [id number] 2{puff} Inhale 2 [facility] (PROAIR 2-12 Puffs ity of HFA) 90 00:00: every 6 [place] mcg/actuati 00 (six) Medical on inhaler hours as Branc h needed for Wheezing or Shortness of Breath. ibuprofen 2018-10- No [id number] 600mg Take 1 [facility] 600 mg 2-12 -29 tablet by ity of tablet 00:00: 00:00 mouth [place] 00 :00 every 6 Medical (six) Branch hours as needed for Pain (scale 4-6). benzonatate 2018-10- No [id number] 100mg Take 1 [facility] 100 mg 2-12 -29 capsule by ity of capsule 00:00: 00:00 mouth 3 [place] 00 :00 (three) Medical times Branch daily as needed for Cough. methylPREDN 2018-10- No [id number] Take by [facility] ISolone 2-12 12-29 mouth ity of (MEDROL, 00:00: 00:00 SEE-INSTRU [place] ROSALINDA,) 4 mg 00 :00 CTIONS. Medica l tablets follow Branch package directions LISINOPRIL 2018-10 Yes [id number] TAKE 1 [facility] 20 mg 2-05 TABLET BY ity of tablet 00:00: MOUTH [place] 00 TWICE Medical DAILY Branch LISINOPRIL 2018-10 Yes [id number] TAKE 1 [facility] 20 mg 2-05 TABLET BY ity of tablet 00:00: MOUTH [place] 00 TWICE Medical DAILY Branch LISINOPRIL 2018-10 Yes [id number] TAKE 1 [facility] 20 mg 2-05 TABLET BY ity of tablet 00:00: MOUTH [place] 00 TWICE Medical DAILY Branch LISINOPRIL 2018-10 Yes [id number] TAKE 1 [facility] 20 mg 2-05 TABLET BY ity of tablet 00:00: MOUTH [place] 00 TWICE Medical DAILY Branch LISINOPRIL 2019- Yes [id number] TAKE 1 [facility] 20 mg 2-05 TABLET BY ity of tablet 00:00: MOUTH TWICE Medical DAILY Branch LISINOPRIL 2019- Yes [id number] TAKE 1 [facility] 20 mg 2-05 TABLET BY ity of tablet 00:00: MOUTH TWICE Medical DAILY Branch LISINOPRIL 2019- Yes [id number] TAKE 1 [facility] 20 mg 2-05 TABLET BY ity of tablet 00:00: MOUTH TWICE Medical DAILY Branch LISINOPRIL 2019- Yes [id number] TAKE 1 [facility] 20 mg 2-05 TABLET BY ity of tablet 00:00: MOUTH TWICE Medical DAILY Branch LISINOPRIL 2019- Yes [id number] TAKE 1 [facility] 20 mg 2-05 TABLET BY ity of tablet 00:00: MOUTH TWICE Medical DAILY Branch LISINOPRIL 2019- Yes [id number] TAKE 1 [facility] 20 mg 2-05 TABLET BY ity of tablet 00:00: MOUTH TWICE Medical DAILY Branch LISINOPRIL 2019- Yes [id number] TAKE 1 [facility] 20 mg 2-05 TABLET BY ity of tablet 00:00: MOUTH TWICE Medical DAILY Branch LISINOPRIL 2019- Yes [id number] TAKE 1 [facility] 20 mg 2-05 TABLET BY ity of tablet 00:00: MOUTH TWICE Medical DAILY Branch LISINOPRIL 2019- Yes [id number] TAKE 1 [facility] 20 mg 2-05 TABLET BY ity of tablet 00:00: TWICE Medical DAILY Branch LISINOPRIL 2019-1 Yes [id number] TAKE 1 [facility] 20 mg 2-05 TABLET BY ity of tablet 00:00: MOUTH TWICE Medical DAILY Branch LISINOPRIL 2019- Yes [id number] TAKE 1 [facility] 20 mg 2-05 TABLET BY ity of tablet 00:00: MOUTH TWICE Medical DAILY Branch LISINOPRIL 2019- Yes [id number] TAKE 1 [facility] 20 mg 2-05 TABLET BY ity of tablet 00:00: MOUTH TWICE Medical DAILY Branch LISINOPRIL 2019- Yes [id number] TAKE 1 [facility] 20 mg 2-05 TABLET BY ity of tablet 00:00: MOUTH TWICE Medical DAILY Branch LISINOPRIL 2019- Yes [id number] TAKE 1 [facility] 20 mg 2-05 TABLET BY ity of tablet 00:00: MOUTH TWICE Medical DAILY Branch atorvastati 2018-0 Yes [id number] 80mg Take 1 [facility] n 80 mg 6-26 tablet by ity of tablet 00:00: mouth at [place] bedtime. Medical Branch atorvastati 2018-0 Yes [id number] 80mg Take 1 [facility] n 80 mg 6-26 tablet by ity of tablet 00:00: mouth at [place] bedtime. Medical Branch atorvasta 2018-0 Yes [id number] 80mg Take 1 [facility] n 80 mg 6-26 tablet by ity of tablet 00:00: mouth at [place] bedtime. Medical Branch atorvastati 2018-0 Yes [id number] 80mg Take 1 [facility] n 80 mg 6-26 tablet by ity of tablet 00:00: mouth at [place] [address] bedtime. Medical Branch atorvasta 2018-0 Yes [id number] 80mg Take 1 [facility] n 80 mg 6-26 tablet by ity of tablet 00:00: mouth at [place] [address] bedtime. Medical Branch atorvasta 2018-0 Yes [id number] 80mg Take 1 [facility] n 80 mg 6-26 tablet by ity of tablet 00:00: mouth at [place] [address] bedtime. Medical Branch atorvastati 2018-0 Yes [id number] 80mg Take 1 [facility] n 80 mg 6-26 tablet by ity of tablet 00:00: mouth at [place] [address] bedtime. Medical Branch atorvastati 2018-0 Yes [id number] 80mg Take 1 [facility] n 80 mg 6-26 tablet by ity of tablet 00:00: mouth at [place] [address] bedtime. Medical Branch atorvastati 2019-0 Yes [id number] 80mg Take 1 [facility] n 80 mg 6-26 tablet by ity of tablet 00:00: mouth at [place] [address] bedtime. Medical Branch atorvastati 2019-0 Yes [id number] 80mg Take 1 [facility] n 80 mg 6-26 tablet by ity of tablet 00:00: mouth at [place] [address] bedtime. Medical Branch atorvastati 2019-0 Yes [id number] 80mg Take 1 [facility] n 80 mg 6-26 tablet by ity of tablet 00:00: mouth at [place] [address] bedtime. Medical Branch atorvastati 2019-0 Yes [id number] 80mg Take 1 [facility] n 80 mg 6-26 tablet by ity of tablet 00:00: mouth at [place] [address] bedtime. Medical Branch atorvastati 2019-0 Yes [id number] 80mg Take 1 [facility] n 80 mg 6-26 tablet by ity of tablet 00:00: mouth at [place] 00 bedtime. Medical Branch atorvastati Yes [id number] 80mg Take 1 [facility] n 80 mg 6-26 tablet by ity of tablet 00:00: mouth at [place] 00 bedtime. [facility] atorvastati Yes [id number] 80mg Take 1 [facility] 80 mg 6-26 tablet by ity of tablet 00:00: mouth at [place] 00 bedtime. [facility] atorvastati Yes [id number] 80mg Take 1 [facility] 80 mg 6-26 tablet by ity of tablet 00:00: mouth at [place] 00 bedtime. [facility] atorvastati Yes [id number] 80mg Take 1 [facility] n 80 mg 6-26 tablet by ity of tablet 00:00: mouth at [place] 00 bedtime. [facility] atorvastati Yes [id number] 80mg Take 1 [facility] n 80 mg 6-26 tablet by ity of tablet 00:00: mouth at [place] 00 bedtime. [facility] lisinopril Yes 20mg Take 1 [facility] rs (ZESTRIL) 6-20 tablet by ity o f 20 mg 00:00: mouth [place] tablet 00 daily. [facility] lisinopril Yes 20mg Take 1 [facility] (ZESTRIL) 6-20 tablet by ity o f 20 mg 00:00: mouth [place] tablet 00 daily. [facility] lisinopril Yes 20mg Take 1 [facility] (ZESTRIL) 6-20 tablet by ity o f 20 mg 00:00: mouth [place] tablet 00 daily. [facility] lisinopril Yes 20mg Take 1 [facility] rs (ZESTRIL) 6-20 tablet by ity o f 20 mg 00:00: mouth [place] tablet 00 daily. [facility] lisinopril 0 Yes 20mg Take 1 [facility] (ZESTRIL) 6-20 tablet by ity o f 20 mg 00:00: mouth [place] tablet 00 daily. [facility] lisinopril Yes 20mg Take 1 [facility] (ZESTRIL) 6-20 tablet by ity o f 20 mg 00:00: mouth [place] tablet 00 daily. [facility] lisinopril 0 Yes 20mg Take 1 [facility] (ZESTRIL) 6-20 tablet by ity o f 20 mg 00:00: mouth [place] tablet 00 daily. [facility] lisinopril 0 Yes 20mg Take 1 [facility] (ZESTRIL) 6-20 tablet by ity o f 20 mg 00:00: mouth [place] tablet 00 daily. [facility] lisinopril 0 Yes 20mg Take 1 [facility] (ZESTRIL) 6-20 tablet by ity o f 20 mg 00:00: mouth [place] tablet 00 daily. [facility] lisinopril 0 Yes 20mg Take 1 [facility] (ZESTRIL) 6-20 tablet by ity o f 20 mg 00:00: mouth [place] tablet 00 daily. [facility] lisinopril 0 Yes 20mg Take 1 [facility] (ZESTRIL) 6-20 tablet by ity o f 20 mg 00:00: mouth [place] tablet 00 daily. [facility] lisinopril 0 Yes 20mg Take 1 [facility] (ZESTRIL) 6-20 tablet by ity o f 20 mg 00:00: mouth [place] tablet 00 daily. [facility] lisinopril 0 Yes 20mg Take 1 [facility] rs (ZESTRIL) 6-20 tablet by ity o f 20 mg 00:00: mouth [place] tablet 00 daily. [facility] lisinopril 0 Yes 20mg Take 1 [facility] (ZESTRIL) 6-20 tablet by ity o f 20 mg 00:00: mouth [place] tablet 00 daily. [facility] lisinopril 0 Yes 20mg Take 1 [facility] rs (ZESTRIL) 6-20 tablet by ity o f 20 mg 00:00: mouth [place] tablet 00 daily. [facility] lisinopril 0 Yes 20mg Take 1 [facility] (ZESTRIL) 6-20 tablet by ity o f 20 mg 00:00: mouth [place] tablet 00 daily. [facility] lisinopril 0 Yes 20mg Take 1 [facility] rs (ZESTRIL) 6-20 tablet by ity o f 20 mg 00:00: mouth [place] tablet 00 daily. [facility] lisinopril 2019-0 Yes 20mg Take 1 [facility] rs (ZESTRIL) 6-20 tablet by ity o f 20 mg 00:00: mouth [place] tablet 00 daily. [facility] atorvastati 0 Yes [id number] 80mg Take 80 mg [facility] n 80 mg 2-25 by mouth ity of tablet 00:00: daily. [facility] atorvastati 2018-0 Yes [id number] 80mg Take 80 mg [facility] n 80 mg 2-25 by mouth ity of tablet 00:00: daily. [facility] atorvastati 0 Yes [id number] 80mg Take 80 mg [facility] n 80 mg 2-25 by mouth ity of tablet 00:00: daily. [facility] atorvastati 0 Yes [id number] 80mg Take 80 mg [facility] n 80 mg 2-25 by mouth ity of tablet 00:00: daily. [facility] atorvastati 0 Yes [id number] 80mg Take 80 mg [facility] n 80 mg 2-25 by mouth ity of tablet 00:00: daily. [facility] atorvastati 0 Yes [id number] 80mg Take 80 mg [facility] n 80 mg 2-25 by mouth ity of tablet 00:00: daily. [facility] atorvastati 0 Yes [id number] 80mg Take 80 mg [facility] n 80 mg 2-25 by mouth ity of tablet 00:00: daily. [facility] atorvastati 0 Yes [id number] 80mg Take 80 mg [facility] n 80 mg 2-25 by mouth ity of tablet 00:00: daily. [facility] atorvastati 2018-0 Yes [id number] 80mg Take 80 mg [facility] n 80 mg 2-25 by mouth ity of tablet 00:00: daily. [facility] atorvastati 0 Yes [id number] 80mg Take 80 mg [facility] n 80 mg 2-25 by mouth ity of tablet 00:00: daily. [facility] atorvastati 0 Yes [id number] 80mg Take 80 mg [facility] n 80 mg 2-25 by mouth ity of tablet 00:00: daily. [facility] atorvastati 2018-0 Yes [id number] 80mg Take 80 mg [facility] n 80 mg 2-25 by mouth ity of tablet 00:00: daily. [address] atorvastati Yes [id number] 80mg Take 80 mg [facility] n 80 mg 2-25 by mouth ity of tablet 00:00: daily. [place] [facility] atorvastati Yes [id number] 80mg Take 80 mg [facility] n 80 mg 2-25 by mouth ity of tablet 00:00: daily. [place] [facility] atorvastati Yes [id number] 80mg Take 80 mg [facility] n 80 mg 2-25 by mouth ity of tablet 00:00: daily. [place] [facility] atorvastati Yes [id number] 80mg Take 80 mg [facility] n 80 mg 2-25 by mouth ity of tablet 00:00: daily. [place] [facility] atorvastati Yes [id number] 80mg Take 80 mg [facility] n 80 mg 2-25 by mouth ity of tablet 00:00: daily. [place] [facility] atorvastati Yes [id number] 80mg Take 80 mg [facility] n 80 mg 2-25 by mouth ity of tablet 00:00: daily. [address] POLYETHYLEN No Notes: Andrew rae E GLYCOL 3-04 Dissolve l 3350 15:00: in 8 oz of [place] 00 water or juice. (Same as: Miralax) Streptococc No Notes: Andrew rae us 3-04 Lightly l pneumoniae 15:00: roll vial He rmann serotype 1 00 (DO NOT capsular SHAKE) antigen before diphtheria administra [id number] tion. protein (Same as: conjugate Prevnar vaccine / 13) Streptococc us pneumoniae serotype 14 capsular antigen diphtheria [id number] protein conjugate vaccine / Streptococc us pneumoniae serotype 18C capsular antigen d POLYETHYLEN No Notes: Andrew rae E GLYCOL 3-04 Dissolve l 3350 15:00: in 8 oz of [place] 00 water or juice. (Same as: Miralax) Streptococc No Notes: Andrew rae us 3-04 Lightly l pneumoniae 15:00: roll vial He rmann serotype 1 00 (DO NOT capsular SHAKE) antigen before diphtheria administra [id number] tion. protein (Same as: conjugate Prevnar vaccine / 13) Streptococc us pneumoniae serotype 14 capsular antigen diphtheria [id number] protein conjugate vaccine / Streptococc us pneumoniae serotype 18C capsular antigen d senna 8.6 Yes 8.6 mg = 1 Me moria mg oral 3-04 tab, PO, l tablet 13:02: Q12H, X 10 April nn 00 day, # 20 tab, 0 Refill(s) Docusate Yes 100 mg = 1 Mem oria Sodium 100 3-04 cap, PO, l MG Oral 13:02: Q12H, # 20 Herm rene Capsule 00 cap, 0 Refill(s) senna 8.6 Yes 8.6 mg = 1 Me moria mg oral 3-04 tab, PO, l tablet 13:02: Q12H, X 10 April nn 00 day, # 20 tab, 0 Refill(s) Docusate Yes 100 mg = 1 Mem oria Sodium 100 3-04 cap, PO, l MG Oral 13:02: Q12H, # 20 Herm rene Capsule 00 cap, 0 Refill(s) phenol No Notes: Memoria 3-04 Chlorasept l 05:02: ic [place] 00 (Same as: Chlorasept ic, Sore Throat [place]) WASTE: F/P - Black; E - Municipal Trash Bin phenol No Notes: Memoria 3-04 Chlorasept l 05:02: ic [place] 00 (Same as: Chlorasept ic, Sore Throat [place]) WASTE: F/P - Black; E - Municipal Trash Bin Saline No Notes: Memoria Flush 0.9% 3-04 (Same as: l 03:00: BD [place] 00 Posiflush) Docusate No Notes: Memoria 3-04 (Same as: l 03:00: Colace) [place] 00 (Do Not Crush) Famotidine No Notes: Memor ia 3-04 (Same as: l 03:00: Pepcid) [place] 00 Can be dilute in 5-10cc NS IVP: Slow IV push over at least 2 minutes. sennosides, No Notes: Andrew rae PRISON 3-04 (Same as: l 03:00: Senokot) [place] 00 Saline No Notes: Memoria Flush 0.9% 3-04 (Same as: l 03:00: BD [place] 00 Posiflush) Docusate No Notes: Memoria 3-04 (Same as: l 03:00: Colace) [place] 00 (Do Not Crush) Famotidine No Notes: Memor ia 3-04 (Same as: l 03:00: Pepcid) [place] 00 Can be dilute in 5-10cc NS IVP: Slow IV push over at least 2 minutes. sennosides, No Notes: Andrew rae PRISON 3-04 (Same as: l 03:00: Senokot) [place] ceFAZolin No Notes: Memori a (SCIP) + 3-04 (Same As: l sodium 01:30: Ancef, [place] chloride 00 Kefzol) 0.9% INJ 100 mL MEDICATION WASTE Product Size: 1000 mg Product Wasted: ___ mg ceFAZolin No Notes: Memori a (SCIP) + 3-04 (Same As: l sodium 01:30: Ancef, [place] chloride 00 Kefzol) 0.9% INJ 100 mL MEDICATION WASTE Product Size: 1000 mg Product Wasted: ___ mg Metoclopram No Notes: Andrew rae zainab 3-04 (Same as: l 00:00: Reglan) [place] Dexamethaso No Notes: Andrew rae ne 3-04 Concentrat l 00:00: ion: [place] 00 4mg/ml Metoclopram No Notes: Andrew rae zainab 3-04 (Same as: l 00:00: Reglan) [place] Dexamethaso No Notes: Andrew rae ne 3-04 Concentrat l 00:00: ion: [place] 00 4mg/ml Cefazolin No Notes: Memori a 3-03 (Same As: l 22:00: Ancef, [place] 00 Kefzol) MEDICATION WASTE Product Size: 1000 mg Product Wasted: ___ mg Cefazolin No Notes: Memori a 3-03 (Same As: l 22:00: Ancef, [place] 00 Kefzol) MEDICATION WASTE Product Size: 1000 mg Product Wasted: ___ mg Robaxin No Notes: Memoria 3-03 (Same l 21:42: as:Robaxin ) Robaxin No Notes: Memoria 3-03 (Same l 21:42: as:Robaxin ) Regular No 60 units) Andrew rae Insulin, - WASTE: F/P l Human 100 21:41: - Black; E He rmann UNT/ML 00 - Injectable Municipal Solution Trash Bin Stable for 28 days at room temperatur e Expires in days from ____Date Dextrose No 6.25 gm, Memor ia 50% Syringe 12-12 12.5 mL, l 21:41: Route: IVP, Drug Form: INJ, Dosing Weight 81.818, kg, PRN, PRN Abnormal Lab Result, Start date: 12/12/16 15:41:00 [employer], Duration: 30 day, Stop date: 01/11/17 16:40:00 CDT Saline No Notes: [facility] Flush 0.9% 12-12 (Same as: l 21:41: BD Posiflush) Bisacodyl No Notes: Memori a 12-12 (Same As: l 21:41: Dulcolax, Bisco-Lax) Ondansetron No Notes: Andrew rae -03 (Same as: l 21:41: Zofran) MEDICATION WASTE Product Size: 4 mg Product Wasted: ___ mg Acetaminoph No Notes: Do M emoria en 325 MG / - not exceed l Hydrocodone 21:41: 4gm/day of [place] Bitartrate 00 acetaminop 10 MG Oral hen. (Same Tablet as: [place] 325/10) Tramadol No Notes: Not Mem oria -03 to exceed l 21:41: 400mg/day. [place] (Same As: Ultram) Hydromorpho No Notes: Andrew rae ne - Same as: l 21:41: Dilaudid Regular 2017-0 No 60 units) Andrew rae Insulin, 3-03 WASTE: F/P l Human 100 21:41: - Black; E He rmann UNT/ML 00 - Injectable Municipal Solution Trash Bin Stable for 28 days at room temperatur e Expires in days from ____Date Dextrose No 6.25 gm, Memor ia 50% Syringe - 12.5 mL, l 21:41: Route: IVP, Drug Form: INJ, Dosing Weight 81.818, kg, PRN, PRN Abnormal Lab Result, Start date: 12/12/16 15:41:00 [employer], Duration: 30 day, Stop date: 01/11/17 16:40:00 CDT Saline No Notes: Memoria Flush 0.9% - (Same as: l 21:41: BD Posiflush) Bisacodyl No Notes: Memori a -03 (Same As: l 21:41: Dulcolax, Bisco-Lax) Ondansetron No Notes: Andrew rae -03 (Same as: l 21:41: Zofran) MEDICATION WASTE Product Size: 4 mg Product Wasted: ___ mg Acetaminoph No Notes: Do M emoria en 325 MG / 3-03 not exceed l Hydrocodone 21:41: 4gm/day of Bitartrate acetaminop 10 MG Oral hen. (Same Tablet as: [place] 325/10) Tramadol No Notes: Not Mem oria 3-03 to exceed l 21:41: 400mg/day. [place] (Same As: Ultram) Hydromorpho No Notes: Andrew rae ne 3-03 Same as: l 21:41: Dilaudid Flumazenil No Notes: Memor ia 3-03 (Same as: l 19:34: Romazicon) Naloxone No Notes: Memoria 3-03 Same as l 19:34: Narcan Ondansetron No Notes: Andrew rae 3-03 (Same as: l 19:34: Zofran) MEDICATION WASTE Product Size: 4 mg Product Wasted: ___ mg Hydromorpho No Notes: Andrew rae ne 12-12 Same as: l 19:34: Dilaudid Flumazenil No Notes: Memor ia 12-12 (Same as: l 19:34: Romazicon) Naloxone No Notes: Memoria 12-12 Same as l 19:34: Narcan Ondansetron No Notes: Andrew rae 12-12 (Same as: l 19:34: Zofran) MEDICATION WASTE Product Size: 4 mg Product Wasted: ___ mg Hydromorpho No Notes: Andrew rae ne 12-12 Same as: l 19:34: Dilaudid Robaxin No 1,000 mg, Memor ia 12-12 Route: PO, l 19:17: ONCE, Dosing Weight 81.818, kg, Priority: STAT, Start date: 12/12/16 13:17:00 [employer], Stop date: 12/12/16 13:17:00 [employer] Robaxin No 1,000 mg, Memor ia 12-12 Route: PO, l 19:17: ONCE, Dosing Weight 81.818, kg, Priority: STAT, Start date: 12/12/16 13:17:00 [employer], Stop date: 12/12/16 13:17:00 [employer] Ondansetron No 4 mg, Memor ia 12-12 Route: l 19:16: IVP, ONCE, Dosing Weight 81.818, kg, PRN Nausea & Vomiting, Start date: 12/12/16 13:16:00 [employer] Oxycodone No Notes: Memori a 12-12 (Same as: l 19:16: Roxicodone ) Flumazenil No 0.2 mg, Andrew rae 12-12 Route: l 19:16: IVP, PRN, Dosing Weight 81.818, kg, PRN Benzodiaze pine Reversal, Initial dose, Start date: 12/12/16 13:16:00 [employer], Duration: 30 day, Stop date: 01/11/17 14:15:00 CDT Naloxone 2017-0 No 0.4 mg, Memori a 12-12 Route: l 19:16: IVP, [place] 00 Q2MIN, Dosing Weight 81.818, kg, PRN Narcotic Reversal, Start date: 12/12/16 13:16:00 [employer], Duration: 8 doses or times, Stop date: Limited # of times Ondansetron 2017-0 No 4 mg, Memor ia 12-12 Route: l 19:16: IVP, ONCE, [place] 00 Dosing Weight 81.818, kg, PRN Nausea & Vomiting, Start date: 12/12/16 13:16:00 [employer] Oxycodone 2016-0 No Notes: Memori a 12-12 (Same as: l 19:16: Roxicodone [place] 00 ) Flumazenil 2016-0 No 0.2 mg, Andrew rae 12-12 Route: l 19:16: IVP, PRN, [place] 00 Dosing Weight 81.818, kg, PRN Benzodiaze pine Reversal, Initial dose, Start date: 12/12/16 13:16:00 [employer], Duration: 30 day, Stop date: 01/11/17 14:15:00 CDT Naloxone 2016-0 No 0.4 mg, Memori a 12-12 Route: l 19:16: IVP, [place] 00 Q2MIN, Dosing Weight 81.818, kg, PRN Narcotic Reversal, Start date: 12/12/16 13:16:00 [employer], Duration: 8 doses or times, Stop date: Limited # of times Methocarbam 2017-0 Yes 1,000 mg = Memoria ol 500 MG 3-03 2 tab, PO, l Oral Tablet 18:53: TID, PRN He rmann [Robaxin] 00 Muscle Spasms, X 10 day, # 60 tab, 0 Refill(s) Methocarbam 2017-0 Yes 1,000 mg = Memoria ol 500 MG 3-03 2 tab, PO, l Oral Tablet 18:53: TID, PRN He r[place] [Robaxin] 00 Muscle Spasms, X 10 day, # 60 tab, 0 Refill(s) { Yes See Memoria (Methylpred 3-03 Instructio l nisolone 4 18:51: ns, PO, Herm rene MG Oral 00 Take by Tablet mouth as [Medrol]) } directed Pack on label., [Medrol # 1 Pack, Dosepak] 0 Refill(s) Famotidine Yes 20 mg = 1 Me moria 20 MG Oral 3-03 tab, PO, l Tablet 18:51: BID, # 14 [place] n 00 tab, 0 Refill(s) Ondansetron 2017- Yes 4 mg = 1 Me moria 4 MG Oral 3-03 tab, PO, l Tablet 18:51: BID, X 5 [place] [Zofran] 00 day, # 10 tab, 0 Refill(s) tramadol Yes 50 mg = 1 Andrew rae hydrochlori 3-03 tab, PO, l de 50 MG 18:51: BID, X 30 Herm rene Oral Tablet 00 day, # 60 tab, 0 Refill(s) { Yes See Memoria (Methylpred 3-03 Instructio l nisolone 4 18:51: ns, PO, Herm rene MG Oral 00 Take by Tablet mouth as [Medrol]) } directed Pack on label., [Medrol # 1 Pack, Dosepak] 0 Refill(s) Famotidine Yes 20 mg = 1 Me moria 20 MG Oral 3-03 tab, PO, l Tablet 18:51: BID, # 14 [place] n 00 tab, 0 Refill(s) Ondansetron 2017-0 Yes 4 mg = 1 Me moria 4 MG Oral 3-03 tab, PO, l Tablet 18:51: BID, X 5 [place] [Zofran] 00 day, # 10 tab, 0 Refill(s) tramadol 0 Yes 50 mg = 1 Andrew rae hydrochlori 3-03 tab, PO, l de 50 MG 18:51: BID, X 30 Herm rene Oral Tablet 00 day, # 60 tab, 0 Refill(s) Famotidine Yes 1 tab, PO, M emoria 26.6 MG / 3-03 TID, PRN l Ibuprofen 15:29: Pain, # 90 He rmann 800 MG Oral 00 tab, 0 Tablet Refill(s) [Duexis] Famotidine Yes 1 tab, PO, M emoria 26.6 MG / 3-03 TID, PRN l Ibuprofen 15:29: Pain, # 90 He rmann 800 MG Oral 00 tab, 0 Tablet Refill(s) [Duexis] ceFAZolin No Notes: Memori a -03 Same as: l 08:00: Ancef [place] 00 ceFAZolin No Notes: Memori a 3-03 Same as: l 08:00: Ancef [place] Saline 2016-0 No 10 ml, Memoria Flush 0.9% 2-03 Route: l 03:00: IVP, Drug [place] Form: INJ, Dosing Weight 81.818, kg, Q12H, Start date: 11/13/16 21:00:00 [employer], Duration: 30 day, Stop date: 12/13/16 9:00:00 [employer] Saline 2016- No 10 ml, Memoria Flush 0.9% 2-03 Route: l 03:00: IVP, Drug [place] 00 Form: INJ, Dosing Weight 81.818, kg, Q12H, Start date: 11/13/16 21:00:00 [employer], Duration: 30 day, Stop date: 12/13/16 9:00:00 [employer] Docusate 2016-0 No 50 mg, Memoria 2- Route: PO, l 23:00: Drug form: [place] 00 CAP, BID, Dosing Weight 81.818, kg, Start date: 11/13/16 17:00:00 [employer], Duration: 30 day, Stop date: 12/13/16 9:00:00 [employer], Pediatric Dosing sennosides, 0 No 1 tab, Andrew rae PRISON 2- Route: PO, l 23:00: Drug Form: [place] 00 TAB, Dosing Weight 81.818, kg, BID, Start date: 11/13/16 17:00:00 [employer], Duration: 30 day, Stop date: 12/13/16 9:00:00 [employer] Docusate 2016-0 No 50 mg, Memoria 2- Route: PO, l 23:00: Drug form: [place] 00 CAP, BID, Dosing Weight 81.818, kg, Start date: 11/13/16 17:00:00 [employer], Duration: 30 day, Stop date: 12/13/16 9:00:00 [employer], Pediatric Dosing sennosides, 2017-0 No 1 tab, Andrew rae PRISON 2- Route: PO, l 23:00: Drug Form: [place] 00 TAB, Dosing Weight 81.818, kg, BID, Start date: 11/13/16 17:00:00 [employer], Duration: 30 day, Stop date: 12/13/16 9:00:00 [employer] Cefazolin 2017-0 No 2 gm, Memoria 2- Route: IV, l 22:00: Q8H, Dosing Weight 81.818, kg, Start date: 11/13/16 16:00:00 [employer], Duration: 24 hr, Stop date: 11/14/16 8:00:00 [employer] Cefazolin 2017-0 No 2 gm, Memoria 2- Route: IV, l 22:00: Q8H, Dosing Weight 81.818, kg, Start date: 11/13/16 16:00:00 [employer], Duration: 24 hr, Stop date: 11/14/16 8:00:00 [employer] Labetalol 2017-0 No 10 mg, Memori a 2- Route: l 18:04: IVP, Drug form: INJ, [id number] , Dosing Weight 81.818, kg, PRN Hypertensi on, Start date: 11/13/16 12:04:00 [employer], Duration: 3 doses or times, Stop date: Limited # of times Flexeril 2017-0 No 10 mg, Memoria 2- Route: PO, l 18:04: Q8H, Dosing Weight 81.818, kg, PRN Other -See Comment, Priority: STAT, Start date: 11/13/16 12:04:00 [employer], Duration: 30 day, Stop date: 12/13/16 12:03:00 [employer] Hydralazine 2017-0 No 20 mg, Andrew rae 2- Route: l 18:04: IVP, Drug form: INJ, Q4H, Dosing Weight 81.818, kg, PRN Hypertensi on, Start date: 11/13/16 12:04:00 [employer], Duration: 30 day, Stop date: 12/13/16 12:03:00 [employer] Saline 2017-0 No 10 ml, Memoria Flush 0.9% 11-13 Route: l 18:04: IVP, Drug [place] 00 Form: INJ, Dosing Weight 81.818, kg, PRN, PRN Line Flush, Start date: 11/13/16 12:04:00 [employer], Duration: 30 day, Stop date: 12/13/16 12:03:00 [employer] Acetaminoph 2017-0 No 2 tab, Andrew rae en 325 MG / 2 Route: PO, l Hydrocodone 18:04: Drug Form: [place] Bitartrate 00 TAB, 10 MG Oral Dosing Tablet Weight [[place] 81.818, 10/325] kg, Q4H, PRN Pain Score 4-6, Start date: 11/13/16 12:04:00 [employer], Duration: 30 day, Stop date: 12/13/16 12:03:00 [employer] Dilaudid 2017-0 No 0.5 mg, Memori a 11-13 Route: l 18:04: IVP, Q3H, [place] 00 Dosing Weight 81.818, kg, PRN Pain Score 7-10, Start date: 11/13/16 12:04:00 [employer], Duration: 30 day, Stop date: 12/13/16 12:03:00 [employer] Ondansetron 2017-0 No /= 4 Memori a 2-02 years, l 18:04: Pediatric [place] 00 Dosing Benadryl 2017-0 No 25 mg, Memoria 2 Route: PO, l 18:04: Drug form: [place] 00 TAB, TID, Dosing Weight 81.818, kg, PRN Itching, Start date: 11/13/16 12:04:00 [employer], Duration: 30 day, Stop date: 12/13/16 12:03:00 [employer] Bisacodyl 2017-0 No 10 mg, Memori a 2- Route: NH, l 18:04: Drug form: [place] 00 SUPP, Daily, Dosing Weight 81.818, kg, PRN Constipati on, Start date: 11/13/16 12:04:00 [employer], Duration: 30 day, Stop date: 12/13/16 12:03:00 [employer] phenol 2017-0 No 1 spray, Memoria 2- Route: l 18:04: TOP, [place] 00 Daily, PRN Sore Throat, Start date: 11/13/16 12:04:00 [employer], Duration: 30 day, Stop date: 12/13/16 12:03:00 [employer] Labetalol 2017-0 No 10 mg, Memori a 2 Route: l 18:04: IVP, Drug [place] 00 form: INJ, [id number] , Dosing Weight 81.818, kg, PRN Hypertensi on, Start date: 11/13/16 12:04:00 [employer], Duration: 3 doses or times, Stop date: Limited # of times Flexeril 2017-0 No 10 mg, Memoria 2 Route: PO, l 18:04: Q8H, [place] Dosing Weight 81.818, kg, PRN Other -See Comment, Priority: STAT, Start date: 11/13/16 12:04:00 [employer], Duration: 30 day, Stop date: 12/13/16 12:03:00 [employer] Hydralazine 2017-0 No 20 mg, Andrew rae 11-13 Route: l 18:04: IVP, Drug [place] 00 form: INJ, Q4H, Dosing Weight 81.818, kg, PRN Hypertensi on, Start date: 11/13/16 12:04:00 [employer], Duration: 30 day, Stop date: 12/13/16 12:03:00 [employer] Saline 2017-0 No 10 ml, Memoria Flush 0.9% 11-13 Route: l 18:04: IVP, Drug [place] 00 Form: INJ, Dosing Weight 81.818, kg, PRN, PRN Line Flush, Start date: 11/13/16 12:04:00 [employer], Duration: 30 day, Stop date: 12/13/16 12:03:00 [employer] Acetaminoph 2017-0 No 2 tab, Andrew rae en 325 MG / 2 Route: PO, l Hydrocodone 18:04: Drug Form: [place] Bitartrate 00 TAB, 10 MG Oral Dosing Tablet Weight [[place] 81.818, 10/325] kg, Q4H, PRN Pain Score 4-6, Start date: 11/13/16 12:04:00 [employer], Duration: 30 day, Stop date: 12/13/16 12:03:00 [employer] Dilaudid 2017-0 No 0.5 mg, Memori a 2 Route: l 18:04: IVP, Q3H, [place] 00 Dosing Weight 81.818, kg, PRN Pain Score 7-10, Start date: 11/13/16 12:04:00 [employer], Duration: 30 day, Stop date: 12/13/16 12:03:00 [employer] Ondansetron 2017-0 No /= 4 Memori a 2-02 years, l 18:04: Pediatric [place] 00 Dosing Benadryl 2017-0 No 25 mg, Memoria 2 Route: PO, l 18:04: Drug form: [place] 00 TAB, TID, Dosing Weight 81.818, kg, PRN Itching, Start date: 11/13/16 12:04:00 [employer], Duration: 30 day, Stop date: 12/13/16 12:03:00 [employer] Bisacodyl 2017-0 No 10 mg, Memori a 11-13 Route: NH, l 18:04: Drug form: [place] 00 SUPP, Daily, Dosing Weight 81.818, kg, PRN Constipati on, Start date: 11/13/16 12:04:00 [employer], Duration: 30 day, Stop date: 12/13/16 12:03:00 [employer] phenol 2016-0 No 1 spray, Memoria 11-13 Route: l 18:04: TOP, [place] Daily, PRN Sore Throat, Start date: 11/13/16 12:04:00 [employer], Duration: 30 day, Stop date: 12/13/16 12:03:00 [employer] ceFAZolin 2016-0 No Notes: Memori a 11-13 Same as: l 09:00: Ancef ceFAZolin 2016-0 No Notes: Memori a 2- Same as: l 09:00: Ancef Aspirin 325 2016-0 Yes 325 mg = 1 Memoria MG Oral 1-03 tab, PO, l Tablet 15:27: Daily, 0 Refill(s) Aspirin 325 Yes 325 mg = 1 Memoria MG Oral 1-03 tab, PO, l Tablet 15:27: Daily, 0 Refill(s) METOPROLOL Yes Take by Alfred ers SUCCINATE 1-18 mouth. ity of ORAL 00:21: [address] LISINOPRIL Yes Take by Alfred ers ORAL 118 mouth. ity of 00:21: [address] AZITHROMYCI Yes Take by Uni vers N -18 mouth. ity of (ZITHROMAX 00:21: [place] Z-ROSALINDA ORAL) [address] [place] [address] Cetirizine Yes Take by Alfred ers (ZYRTEC) 10 18 mouth. ity of mg capsule 00:21: [address] METOPROLOL Yes Take by Alfred ers SUCCINATE 18 mouth. ity of ORAL 00:21: [address] LISINOPRIL Yes Take by Alfred ers ORAL 18 mouth. ity of 00:21: [address] AZITHROMYCI Yes Take by Uni vers N 18 mouth. ity of (ZITHROMAX 00:21: [place] Z-ROSALINDA ORAL) [address] [place] [address] Cetirizine Yes Take by Alfred ers (ZYRTEC) 10 18 mouth. ity of mg capsule 00:21: [address] METOPROLOL Yes Take by Alfred ers SUCCINATE 18 mouth. ity of ORAL 00:21: [address] LISINOPRIL Yes Take by Alfred ers ORAL 118 mouth. ity of 00:21: [address] AZITHROMYCI Yes Take by Uni vers N -18 mouth. ity of (ZITHROMAX 00:21: [place] Z-ROSALINDA ORAL) [address] [place] [address] Cetirizine Yes Take by Alfred ers (ZYRTEC) 10 -18 mouth. ity of mg capsule 00:21: [address] METOPROLOL Yes Take by Alfred ers SUCCINATE 1-18 mouth. ity of ORAL 00:21: [address] LISINOPRIL Yes Take by Alfred ers ORAL 118 mouth. ity of 00:21: [address] AZITHROMYCI Yes Take by Uni vers N 1-18 mouth. ity of (ZITHROMAX 00:21: [place] Z-ROSALINDA ORAL) [address] [place] [address] Cetirizine Yes Take by Alfred ers (ZYRTEC) 10 1-18 mouth. ity of mg capsule 00:21: [address] METOPROLOL Yes Take by Alfred ers SUCCINATE 1-18 mouth. ity of ORAL 00:21: [address] LISINOPRIL Yes Take by Alfred ers ORAL 1-18 mouth. ity of 00:21: [address] AZITHROMYCI Yes Take by Uni vers N 1-18 mouth. ity of (ZITHROMAX 00:21: [place] Z-ROSALINDA ORAL) [address] [place] [address] Cetirizine Yes Take by Alfred ers (ZYRTEC) 10 1-18 mouth. ity of mg capsule 00:21: [address] METOPROLOL Yes Take by Alfred ers SUCCINATE 118 mouth. ity of ORAL 00:21: [address] LISINOPRIL Yes Take by Alfred ers ORAL 118 mouth. ity of 00:21: [address] AZITHROMYCI Yes Take by Uni vers N 1-18 mouth. ity of (ZITHROMAX 00:21: [place] Z-ROSALINDA ORAL) [address] [place] [address] Cetirizine Yes Take by Alfred ers (ZYRTEC) 10 1-18 mouth. ity of mg capsule 00:21: [address] METOPROLOL Yes Take by Alfred ers SUCCINATE 1-18 mouth. ity of ORAL 00:21: [address] LISINOPRIL Yes Take by Alfred ers ORAL 1-18 mouth. ity of 00:21: [address] AZITHROMYCI Yes Take by Uni vers N 1-18 mouth. ity of (ZITHROMAX 00:21: [place] Z-ROSALINDA ORAL) [address] [place] [address] Cetirizine Yes Take by Alfred ers (ZYRTEC) 10 1-18 mouth. ity of mg capsule 00:21: [address] METOPROLOL Yes Take by Alfred ers SUCCINATE 1-18 mouth. ity of ORAL 00:21: [address] LISINOPRIL Yes Take by Alfred ers ORAL 1-18 mouth. ity of 00:21: [address] AZITHROMYCI Yes Take by Uni vers N 1-18 mouth. ity of (ZITHROMAX 00:21: [place] Z-ROSALINDA ORAL) [address] [place] [address] Cetirizine Yes Take by Alfred ers (ZYRTE) 10 1-18 mouth. ity of mg capsule 00:21: [address] METOPROLOL Yes Take by Univ ers SUCCINATE 1-18 mouth. ity of ORAL 00:21: [address] LISINOPRIL Yes Take by Univ ers ORAL 1-18 mouth. ity of 00:21: [address] AZITHROMYCI Yes Take by Uni vers N 1-18 mouth. ity of (ZITHROMAX 00:21: [place] Z-ROSALINDA ORAL) [address] [place] [address] Cetirizine Yes Take by Alfred ers (ZYRTE) 10 1-18 mouth. ity of mg capsule 00:21: [address] METOPROLOL Yes Take by Alfred ers SUCCINATE 1-18 mouth. ity of ORAL 00:21: [address] LISINOPRIL Yes Take by Alfred ers ORAL 1-18 mouth. ity of 00:21: [address] AZITHROMYCI Yes Take by Uni vers N 1-18 mouth. ity of (ZITHROMAX 00:21: [place] Z-ROSALINDA ORAL) [address] [place] [address] Cetirizine Yes Take by Alfred ers (ZYRTEC) 10 1-18 mouth. ity of mg capsule 00:21: [address] METOPROLOL Yes Take by Alfred ers SUCCINATE 1-17 mouth. ity of ORAL 18:21: [address] LISINOPRIL Yes Take by Alfred ers ORAL 1-17 mouth. ity of 18:21: [address] Cetirizine Yes Take by Alfred ers (ZYRTEC) 10 1-17 mouth. ity of mg capsule 18:21: [address] METOPROLOL Yes Take by Univ ers SUCCINATE 1-17 mouth. ity of ORAL 18:21: [address] LISINOPRIL Yes Take by Univ ers ORAL 1-17 mouth. ity of 18:21: [address] Cetirizine 2016-0 Yes Take by [facility] ers (ZYRTE) 10 1-17 mouth. ity of mg capsule 18:21: [address] METOPROLOL 2016-0 Yes Take by Univ ers SUCCINATE 1-17 mouth. ity of ORAL 18:21: [address] LISINOPRIL 2016-0 Yes Take by Univ ers ORAL 1-17 mouth. ity of 18:21: [address] Cetirizine 2016-0 Yes Take by [facility] ers (ZYRTEC) 10 1-17 mouth. ity of mg capsule 18:21: [address] METOPROLOL 0 Yes Take by [facility] ers SUCCINATE 1-17 mouth. ity of ORAL 18:21: [address] LISINOPRIL 0 Yes Take by Alfred ers ORAL 1-17 mouth. ity of 18:21: [address] Cetirizine Yes Take by [facility] ers (ZYRTE) 10 1-17 mouth. ity of mg capsule 18:21: [address] METOPROLOL 0 Yes Take by [facility] ers SUCCINATE 1-17 mouth. ity of ORAL 18:21: [address] LISINOPRIL 0 Yes Take by Alfred ers ORAL 1-17 mouth. ity of 18:21: [address] Cetirizine 0 Yes Take by [facility] ers (ZYRTE) 10 1-17 mouth. ity of mg capsule 18:21: [address] METOPROLOL 2015- Yes Take by [facility] ers SUCCINATE 1-17 mouth. ity of ORAL 18:21: [address] LISINOPRIL 2016-0 Yes Take by Univ ers ORAL 1-17 mouth. ity of 18:21: [address] Cetirizine 0 Yes Take by [facility] ers (ZYRTEC) 10 1-17 mouth. ity of mg capsule 18:21: [address] METOPROLOL 2015-0 Yes Take by Univ ers SUCCINATE 1-17 mouth. ity of ORAL 18:21: [address] LISINOPRIL 2016-0 Yes Take by Univ ers ORAL 1-17 mouth. ity of 18:21: [address] Cetirizine 2016-0 Yes Take by Univ ers (ZYRTEC) 10 1-17 mouth. ity of mg capsule 18:21: [address] METOPROLOL 2015-0 Yes Take by [facility] ers SUCCINATE 1-17 mouth. ity of ORAL 18:21: [address] LISINOPRIL 2016-0 Yes Take by [facility] ers ORAL 1-17 mouth. ity of 18:21: [address] Cetirizine 0 Yes Take by [facility] ers (ZYRTEC) 10 1-17 mouth. ity of mg capsule 18:21: [address] METOPROLOL 2015-0 Yes Take by [facility] ers SUCCINATE 1-17 mouth. ity of ORAL 18:21: [address] LISINOPRIL 0 Yes Take by [facility] ers ORAL 1-17 mouth. ity of 18:21: [address] Cetirizine 0 Yes Take by [facility] ers (ZYRTEC) 10 1-17 mouth. ity of mg capsule 18:21: [address] amoxicillin Yes 1{tbl} Take 1 Tab Univers -clavulanat 1-17 by mouth ity of e 00:00: every 12 [place] (AUGMENTIN) 00 (twelve) Medi gabriella 875-125 mg hours. Branch per tablet codeine-gua 2015-0 Yes 5mL Take 5 mL U nivers ifenesin 1-17 by mouth ity of (ROBITUSSIN 00:00: every 4 Good as AC) 10-100 00 (four) Medical mg/5 mL hours as Branch solution needed for Cough. amoxicillin Yes 1{tbl} Take 1 Tab Univers -clavulanat 1-17 by mouth ity of e 00:00: every 12 [place] (AUGMENTIN) 00 (twelve) Medi gabriella 875-125 mg hours. Branch per tablet codeine-gua 2015-0 Yes 5mL Take 5 mL U nivers ifenesin 1-17 by mouth ity of (ROBITUSSIN 00:00: every 4 Good as AC) 10-100 00 (four) Medical mg/5 mL hours as Branch solution needed for Cough. amoxicillin 2015-0 Yes 1{tbl} Take 1 Tab Univers -clavulanat 1-17 by mouth ity of e 00:00: every 12 [place] (AUGMENTIN) 00 (twelve) Medi gabriella 875-125 mg hours. Branch per tablet codeine-gua 2016-0 Yes 5mL Take 5 mL U nivers ifenesin 1-17 by mouth ity of (ROBITUSSIN 00:00: every 4 Good as AC) 10-100 00 (four) Medical mg/5 mL hours as Branch solution needed for Cough. amoxicillin 2016-0 Yes 1{tbl} Take 1 Tab Univers -clavulanat 1-17 by mouth ity of e 00:00: every 12 [place] (AUGMENTIN) 00 (twelve) Medi gabriella 875-125 mg hours. Branch per tablet codeine-gua 2016-0 Yes 5mL Take 5 mL U nivers ifenesin 1-17 by mouth ity of (ROBITUSSIN 00:00: every 4 Good as AC) 10-100 00 (four) Medical mg/5 mL hours as Branch solution needed for Cough. amoxicillin 2016-0 Yes 1{tbl} Take 1 Tab Univers -clavulanat 1-17 by mouth ity of e 00:00: every 12 [place] (AUGMENTIN) 00 (twelve) Medi gabriella 875-125 mg hours. Branch per tablet codeine-gua 2016-0 Yes 5mL Take 5 mL U nivers ifenesin 1-17 by mouth ity of (ROBITUSSIN 00:00: every 4 Good as AC) 10-100 00 (four) Medical mg/5 mL hours as Branch solution needed for Cough. amoxicillin 2016-0 Yes 1{tbl} Take 1 Tab Univers -clavulanat 1-17 by mouth ity of e 00:00: every 12 [place] (AUGMENTIN) 00 (twelve) Medi gabriella 875-125 mg hours. Branch per tablet codeine-gua 2016-0 Yes 5mL Take 5 mL U nivers ifenesin 1-17 by mouth ity of (ROBITUSSIN 00:00: every 4 Good as AC) 10-100 00 (four) Medical mg/5 mL hours as Branch solution needed for Cough. amoxicillin 2016-0 Yes 1{tbl} Take 1 Tab Univers -clavulanat 1-17 by mouth ity of e 00:00: every 12 [place] (AUGMENTIN) 00 (twelve) Medi gabriella 875-125 mg hours. Branch per tablet codeine-gua 2016-0 Yes 5mL Take 5 mL U nivers ifenesin 1-17 by mouth ity of (ROBITUSSIN 00:00: every 4 Good as AC) 10-100 00 (four) Medical mg/5 mL hours as Branch solution needed for Cough. amoxicillin Yes 1{tbl} Take 1 Tab Univers -clavulanat 1-17 by mouth ity of e 00:00: every 12 [place] (AUGMENTIN) 00 (twelve) Medi gabriella 875-125 mg hours. Branch per tablet codeine-gua 2015- Yes 5mL Take 5 mL U nivers ifenesin 1-17 by mouth ity of (ROBITUSSIN 00:00: every 4 Good as AC) 10-100 00 (four) Medical mg/5 mL hours as Branch solution needed for Cough. amoxicillin Yes 1{tbl} Take 1 Tab Univers -clavulanat 1-17 by mouth ity of e 00:00: every 12 [place] (AUGMENTIN) 00 (twelve) Medi gabriella 875-125 mg hours. Branch per tablet codeine-gua Yes 5mL Take 5 mL U nivers ifenesin 1-17 by mouth ity of (ROBITUSSIN 00:00: every 4 Good as AC) 10-100 00 (four) Medical mg/5 mL hours as Branch solution needed for Cough. amoxicillin Yes 1{tbl} Take 1 Tab Univers -clavulanat 1-17 by mouth ity of e 00:00: every 12 [place] (AUGMENTIN) 00 (twelve) Medi gabriella 875-125 mg hours. Branch per tablet codeine-gua Yes 5mL Take 5 mL U nivers ifenesin 1-17 by mouth ity of (ROBITUSSIN 00:00: every 4 Good as AC) 10-100 00 (four) Medical mg/5 mL hours as Branch solution needed for Cough. amoxicillin 2020- No 1{tbl} Take 1 Tab Univers -clavulanat 1-17 12-29 by mouth ity of e 00:00: 00:00 every 12 [place] (AUGMENTIN) 00 :00 (twelve) Medi gabriella 875-125 mg hours. Branch per tablet codeine-gua 2015-2020- No 5mL Take 5 mL Univers ifenesin 1-17 12-29 by mouth ity of (ROBITUSSIN 00:00: 00:00 every 4 [place] AC) 10-100 00 :00 (four) Medical mg/5 mL hours as Branch solution needed for Cough. Immunizations Ordered Filled Immunization Date Status Comments [facility] Immunization Name Name SARS-COV-2 COVID-19 2020-12-29 Completed Unive rsity of PFIZER VACCINE 00:00:00 [facility] [place] [facility] SARS-COV-2 COVID-19 2020-12-29 Completed Unive rsity of PFIZER VACCINE 00:00:00 [facility] [place] [facility] SARS-COV-2 COVID-19 2020-12-29 Completed Unive rsity of PFIZER VACCINE 00:00:00 [facility] [place] [facility] SARS-COV-2 COVID-19 2020-12-29 Completed Unive rsity of PFIZER VACCINE 00:00:00 [facility] [place] [facility] SARS-COV-2 COVID-19 2020-12-29 Completed Unive rsity of PFIZER VACCINE 00:00:00 [facility] [place] [facility] SARS-COV-2 COVID-19 2020-12-29 Completed Unive rsity of PFIZER VACCINE 00:00:00 [facility] [place] [facility] SARS-COV-2 COVID-19 2020-12-29 Completed Unive rsity of PFIZER VACCINE 00:00:00 [facility] [place] [facility] SARS-COV-2 COVID-19 2020-12-29 Completed Unive rsity of PFIZER VACCINE 00:00:00 [facility] [place] [facility] SARS-COV-2 COVID-19 2020-12-29 Completed Unive rsity of PFIZER VACCINE 00:00:00 [facility] [place] [facility] SARS-COV-2 COVID-19 2020-12-29 Completed Unive rsity of PFIZER VACCINE 00:00:00 [facility] [place] [facility] SARS-COV-2 COVID-19 2020-12-29 Completed Unive rsity of PFIZER VACCINE 00:00:00 [facility] [place] [facility] SARS-COV-2 COVID-19 2020-12-29 Completed Unive rsity of PFIZER VACCINE 00:00:00 [facility] [place] [facility] SARS-COV-2 COVID-19 2020-12-29 Completed Unive rsity of PFIZER VACCINE 00:00:00 [facility] [place] [facility] SARS-COV-2 COVID-19 2020-12-08 Completed Unive rsity of PFIZER VACCINE 00:00:00 [facility] SARS-COV-2 COVID-19 2020-12-08 Completed Unive rsity of PFIZER VACCINE 00:00:00 [facility] [place] [facility] SARS-COV-2 COVID-19 2020-12-08 Completed Unive rsity of PFIZER VACCINE 00:00:00 [facility] SARS-COV-2 COVID-19 2020-12-08 Completed Unive rsity of PFIZER VACCINE 00:00:00 [facility] SARS-COV-2 COVID-19 2020-12-08 Completed Unive rsity of PFIZER VACCINE 00:00:00 [facility] SARS-COV-2 COVID-19 2020-12-08 Completed Unive rsity of PFIZER VACCINE 00:00:00 [facility] SARS-COV-2 COVID-19 2020-12-08 Completed Unive rsity of PFIZER VACCINE 00:00:00 [facility] SARS-COV-2 COVID-19 2020-12-08 Completed Unive rsity of PFIZER VACCINE 00:00:00 [facility] SARS-COV-2 COVID-19 2020-12-08 Completed Unive rsity of PFIZER VACCINE 00:00:00 [facility] SARS-COV-2 COVID-19 2020-12-08 Completed Unive rsity of PFIZER VACCINE 00:00:00 [facility] SARS-COV-2 COVID-19 2020-12-08 Completed Unive rsity of PFIZER VACCINE 00:00:00 [facility] SARS-COV-2 COVID-19 2020-12-08 Completed Unive rsity of PFIZER VACCINE 00:00:00 [facility] SARS-COV-2 COVID-19 2020-12-08 Completed Unive rsity of PFIZER VACCINE 00:00:00 [facility] pneumococcal 2016-12-13 Completed [facility] oneill 13-valent vaccine 15:57:00 pneumococcal 2016-12-13 Completed [facility] oneill 13-valent vaccine 15:57:00 Vital Signs Vital Name Observation Time Observation Value Comments Source Systolic blood 2021-12-03 03:15:04 135 mm[Hg] Univer sity of pressure [facility] Diastolic blood 2021-12-03 03:15:04 72 mm[Hg] Unive rsity of pressure [facility] Heart rate 2021-12-03 03:15:04 71 /min [facility] Respiratory rate 2021-12-03 03:15:04 18 /min [facility] [place] [facility] Oxygen saturation in 2021-12-03 03:15:04 96 /min University of Arterial blood by [facility] gabriella Pulse oximetry Branch Body temperature 2021-12-02 23:21:00 36.67 Natalie Univ ersity [facility] [place] [facility] Body weight 2021-12-02 23:21:00 81.194 kg [facility] [place] [facility] BMI 2021-12-02 23:21:00 29.79 kg/m2 [facility] [place] [facility] Systolic blood 2021-10-14 19:44:00 135 mm[Hg] Univer sity of pressure [place] [facility] Diastolic blood 2021-10-14 19:44:00 80 mm[Hg] Unive rsity of pressure [place] [facility] Heart rate 2021-10-14 19:44:00 66 /min Universi ty [facility] [place] [facility] [place] Body temperature 2021-10-14 19:44:00 36.78 Natalie Univ ers[facility] [place] [facility] Respiratory rate 2021-10-14 19:44:00 18 /min Univ ersity [facility] [place] [facility] Body height 2021-10-14 19:44:00 165.1 cm [facility] [place] [facility] Body weight 2021-10-14 19:44:00 81.194 kg [facility] [place] [facility] BMI 2021-10-14 19:44:00 29.79 kg/m2 [facility] [place] [facility] Oxygen saturation in 2021-10-14 19:44:00 96 /min University of Arterial blood by [facility] [place] Pulse oximetry Branch Systolic blood 2021-10-10 02:05:00 135 mm[Hg] Univer sity of pressure [place] [facility] Diastolic blood 2021-10-10 02:05:00 80 mm[Hg] Unive rsity of pressure [place] [facility] Heart rate 2021-10-10 02:05:00 75 /min Universi ty [facility] [place] [facility] Respiratory rate 2021-10-10 02:05:00 18 /min Univ ersity [facility] [place] [facility] Oxygen saturation in 2021-10-10 02:05:00 97 /min University of Arterial blood by [facility] gabriella Pulse oximetry Branch Body temperature 2021-10-09 22:05:00 37.61 Natalie Univ ers[facility] [place] [facility] Body weight 2021-10-09 22:05:00 82.101 kg [facility] [place] [facility] BMI 2021-10-09 22:05:00 30.12 kg/m2 [facility] [place] [facility] Systolic blood 2021-04-16 15:15:00 131 mm[Hg] Univer sity of pressure [place] [facility] Diastolic blood 2021-04-16 15:15:00 65 mm[Hg] Unive rsity of pressure [place] [facility] Heart rate 2021-04-16 15:15:00 67 /min [facility] [place] [facility] Body height 2021-04-16 15:15:00 165.1 cm [facility] [place] [facility] Body weight 2021-04-16 15:15:00 82.101 kg [facility] [place] [facility] BMI 2021-04-16 15:15:00 30.12 kg/m2 [facility] [place] [facility] Oxygen saturation in 2021-04-16 15:15:00 95 /min University of Arterial blood by [place] [facility] gabriella Pulse oximetry Branch Systolic blood 2019-12-16 23:00:00 121 mm[Hg] Univer sity of pressure [place] [facility] Diastolic blood 2019-12-16 23:00:00 74 mm[Hg] Unive rsity of pressure [place] [facility] Heart rate 2019-12-16 23:00:00 93 /min Universi ty [facility] [place] [facility] Respiratory rate 2019-12-16 23:00:00 18 /min Univ ersity [facility] [place] [facility] Oxygen saturation in 2019-12-16 23:00:00 98 /min University of Arterial blood by [place] [facility] gabriella Pulse oximetry Branch Body temperature 2019-12-16 22:10:00 37.06 Natalie Univ [facility] [place] [facility] Body weight 2019-12-16 22:10:00 89.359 kg [facility] [place] [facility] BMI 2019-12-16 22:10:00 32.78 kg/m2 [facility] [place] [facility] Systolic blood 2019-12-16 23:00:00 121 mm[Hg] Univer sity of pressure [place] [facility] Diastolic blood 2019-12-16 23:00:00 74 mm[Hg] Unive rsity of pressure [place] [facility] Heart rate 2019-12-16 23:00:00 93 /min [facility]i [facility] [place] [facility] Respiratory rate 2019-12-16 23:00:00 18 /min Univ ers[facility] [place] [facility] Oxygen saturation in 2019-12-16 23:00:00 98 /min University Arterial blood by [facility] [place] Pulse oximetry Branch Body temperature 2019-12-16 22:10:00 37.06 Natalie [facility] 2019-12-16 22:10:[address] [facility] [place] [facility] BMI 2019-12-16 22:10:00 32.78 kg/m2 [facility] Respitory Rate 2016-12-13 14:09:00 [facility] Heart Rate 2016-12-13 14:09:00 [facility] Systolic (mm Hg) 2016-12-13 14:09:00 [facility] Diastolic (mm Hg) 2016-12-13 14:09:00 [facility] Temperature Oral (F) 2016-12-13 14:09:00 98.2 F [facility] Respitory Rate 2016-12-13 09:55:00 [facility] [place] Temperature Oral (F) 2016-12-13 09:55:00 97.7 F [facility] Heart Rate 2016-12-13 09:55:00 [facility] Systolic (mm Hg) 2016-12-13 09:55:00 [facility] Diastolic (mm Hg) 2016-12-13 09:55:00 [facility] Respitory Rate 2016-12-13 05:49:00 [facility] Systolic (mm Hg) 2016-12-13 05:49:00 [facility] [place] Diastolic (mm Hg) 2016-12-13 05:49:00 [facility] [place] Temperature Oral (F) 2016-12-13 05:49:00 97.6 F [facility] Heart Rate 2016-12-13 05:49:00 [facility] Weight 2016-12-08 18:31:00 [facility] BMI Calculated 2016-12-08 18:31:00 [facility] Height 2016-12-08 18:31:00 165.1 cm [facility] Heart Rate 2016-11-13 12:41:00 [facility] Systolic (mm Hg) 2016-11-13 12:41:00 [facility] [place] Diastolic (mm Hg) 2016-11-13 12:41:00 [facility] Respitory Rate 2016-11-13 12:41:00 [facility] Weight 2016-11-13 12:41:00 [facility] BMI Calculated 2016-11-13 12:41:00 [facility] Height 2016-11-07 20:48:00 165.1 cm [facility] Heart Rate 2016-11-07 20:48:00 [facility] Systolic (mm Hg) 2016-11-07 20:48:00 [facility] [place] Diastolic (mm Hg) 2016-11-07 20:48:00 [facility] BMI Calculated 2016-10-16 14:02:00 [facility] [place] Height 2016-10-16 14:02:00 165.1 cm [facility] Weight 2016-10-16 14:02:00 [facility] Systolic (mm Hg) 2016-10-16 13:57:00 [facility] [place] Diastolic (mm Hg) 2016-10-16 13:57:00 [facility] [place] Respitory Rate 2016-10-16 13:57:00 [facility] Procedures Procedure Date / Time Performed Performing Clinician [facility] ASSIGNMENT OF BENEFITS 2022-02-19 17:22:40 Doctor Unassigned, No [facility] URINALYSIS 2021-12-03 02:25:00 Yaima Hanley [facility] XR SPINE THORACIC 2 VW 2021-10-10 00:12:24 Sylvia [facility] URINALYSIS 2021-10-09 22:12:00 Sylvia Duenas [facility] NOTICE OF PRIVACY 2021-10-09 22:00:13 Doctor Unassigned, No [facility] PRACTICES [facility] CONSENT/REFUSAL FOR 2021-10-09 21:59:32 Doctor Unassigned, No [facility] DIAGNOSIS AND [facility] TREATMENT REFERRAL- 2021-03-05 05:01:00 Doctor Unassigned, No [facility] REQUEST/RESPONSE [facility] Medical [place] XR CERVICAL SPINE 3 VW 2020-11-01 20:14:34 Kaela Hui [facility] ASSIGNMENT OF BENEFITS 2020-11-01 19:25:28 Doctor Unassigned, No [facility] Branch XR CHEST 2 VW 2019-12-16 22:35:06 Freddy Metcalf [facility] RAPID STREP SCREEN FOR 2019-12-16 22:18:00 [facility]cal[facility] ADC,CLC OR LCC ONLY - 2019-12-16 22:18:00 Freddy Metcalf [facility] [place] INFLUENZA A & B DIRECT Medical B [place] ANTIGEN NOTICE OF PRIVACY 2019-12-16 21:12:21 Doctor Unassigned, No Univ [facility] PRACTICES Name Medical Branch Cervical spinal fusion 2016-12-12 06:00:00 Kira Last by anterior technique Arm repair<sup>1</sup> [place] Last Encounters Start End Encounter Admission Attending Care Care Encounter Source Date/Time Date/Time Type Type Clinicians Facility Department ID 2022-08-13 2022-08-13 Telephone Team, [facility] ADARSH [id number] Univers 00:00:00 00:00:00 Health UNIQUE [id number] it y of [facility] HOSPITAL [id number] [place] [id number] [facility] [address] [place] 2022-02-20 2022-02-20 Telephone JennyADARSH [id number] Univers 00:00:00 00:00:00 Jennifermatilde [place] [id number] it y of [facility] [id number] Good as [id number] [facility] [address] [place] 2022-02-19 2022-02-19 Laboratory Only, Ang Db Test [facility] 1.2.8 [id number] Univers 12:15:00 12:30:00 Only Martha Oscar [facility] [id number] ity [facility] [id number] Good as OTILIA?BLEA [id number] [address] MEDICAL OFFICE BUILDING 2022-02-19 2022-02-19 Outpatient R DAYNE [facility] [id number] Univers 12:15:00 12:15:00 MARTHA cornelius [facility] 2022-02-19 2022-02-19 Outpatient R DANIEL [facility] [id number] Univers 09:30:00 09:30:00 FORREST cornelius o [facility] 2022-02-19 2022-02-19 Orders Doctor ADARSH [id number] Univers 00:00:00 00:00:00 Only Unassigned, UNIQUE [id number] ity of [place] [facility] [id number] Good as [phone] [facility] 009 Branch 2021-12-02 2021-12-02 Emergency X HANLEY, [facility] ERT [id number] Univers 17:23:00 21:20:00 YAIMA ity [facility] 2021-12-02 2021-12-02 Emergency [facility] [id number] Univers 17:23:00 21:20:00 Yaimaarelis CORE[place] [id number] i ty of [place] [id number] [place] [id number] [facility] [facility] [address] 2021-10-16 2021-10-16 Letter ADARSH Patel [id number] Univers 00:00:00 00:00:00 (Out) Alison CALHOUN [id number] it y of [facility] [id number] Good as [phone] [facility] 019 Branch 2021-10-15 2021-10-15 Telephone Ban [facility] [id number] Univers 00:00:00 00:00:00 [facility] [id number] it y of [place] [id number] Good as OTILIA?BLEA [phone] N[place] dical JEROMY [address] MEDICAL OFFICE BUILDING 2021-10-14 2021-10-14 Outpatient Virgil OJEDA [facility] [id number] Univers 13:40:00 14:23:16 LIVIER cornelius [facility] 2021-10-14 2021-10-14 Urgent Adarsh Cevallos [facility] [id number] Univers 13:40:00 14:00:00 Livier Hwang [facility] [id number] ity of [place] [id number] Good as OTILIA?BLEA [phone] N[place] dical KNEY [address] MEDICAL OFFICE BUILDING 2021-10-09 2021-10-09 Emergency X [facility] ERT [id number] Univers 16:08:00 20:08:00 SYLVIA ity of [facility] 2021-10-09 2021-10-09 Emergency [facility] [id number] Univers 16:08:00 20:08:00 Sylvia COREA [id number] ity of [id number] [phone] [facility] 084 Branch 2021-04-16 2021-04-16 [facility] [id number] Univers 10:43:11 23:59:00 JEROME tuttley o f [facility] 2021-04-16 2021-04-16 Office [facility] [id number] Univers 10:06:06 10:26:06 Visit Jerome Corea [id number] ity of [place] [id number] [facility] [phone] N[place] dical nal 059 [address] Building 2021-03-12 2021-03-12 Letter ADARSH Diehl [id number] Univers 00:00:00 00:00:00 (Out) Yisel CALHOUN [id number] it y of HOSPITAL [id number] Good as [phone] [facility] 043 Branch 2021-03-05 2021-03-05 Orders Doctor ALTAMIRANO [id number] Univers 00:00:00 00:00:00 Only Unassigned, UNIQUE [id number] ity of [place] [facility] [id number] Good as [phone] [facility] 009 Branch 2020-12-29 2020-12-29 Outpatient [facility] [id number] Univers 10:05:00 10:05:00 ity of [facility] 2020-12-08 2020-12-08 Outpatient [facility] [id number] Univers 10:15:00 10:15:00 ity of [facility] 2020-11-01 2020-11-01 [facility] [id number] Univers 13:29:39 23:59:00 Encounter J Vale [id number] ity of [place] [id number] [place] [facility] [phone] [facility] [address] [place] 2020-11-01 2020-11-01 Outpatient R KAELA HUI [facility] [id number] Univers 00:00:00 00:00:00 ity of [facility] 2020-11-01 2020-11-01 Orders Doctor ADARSH [id number] Univers 00:00:00 00:00:00 Only Unassigned, UNIQUE [id number] ity of [place] [facility] [id number] Good as [phone] [facility] [address] [place] 2020-10-19 2020-10-19 Laboratory Lab, [facility] Pob I [facility] 1.2. 840.114 [id number] Univers 13:13:57 13:33:57 Only Marlys [facility] [id number] ity of [place] [id number] Good as Professio [phone] [address] Office Building One 2020-10-19 2020-10-19 Outpatient R [facility] [id number] Univers 13:00:00 13:00:00 ity of [facility] 2020-10-19 2020-10-19 Letter Doctor ADARSH [id number] Univers 00:00:00 00:00:00 (Out) Unassigned, UNIQUE [id number] ity of [place] [facility] [id number] Good as [phone] [address] 2020-04-27 2020-04-27 Outpatient R [facility] [id number] Univers 11:40:00 11:40:00 ity of [facility] 2020-04-27 2020-04-27 Laboratory Lab, [facility] 1.2.840.114 [id number] 11:12:10 11:32:10 Only Fam Pob I Health [id number] [place] [id number] Professio [phone] nal [facility] Office Building One 2020-04-27 2020-04-27 Laboratory Lab, Adc Fam Pob I [facility] 1.2. 840.114 [id number] Univers 11:12:10 11:32:10 Only Marlys [facility] [id number] ity of [place] [id number] Good as Professio [phone] [facility] [facility] [address] [place] Office Building One 2019-12-16 2019-12-16 Emergency Megan, [facility] [id number] 16:05:32 18:09:00 Freddy Corea [id number] [place] [id number] [place] [phone] [facility] 2019-12-16 2019-12-16 Emergency Megan, [facility] [id number] Univers 16:05:32 18:09:00 Freddy Corea [id number] i ty of [id number] [phone] [address] 2019-12-16 2019-12-16 Emergency X MEGAN, [facility] ERT [id number] Univers 16:05:32 18:09:00 FREDDY ity of [facility] 2019-10-07 2019-10-07 Outpatient R RADIOLOGY [facility] [id number] Univers 13:42:59 23:59:00 ity of [facility] 2019-09-13 2019-09-13 Outpatient R RADIOLOGY [facility] [id number] Univers 13:27:23 23:59:00 ity [facility] 2017-03-19 2017-03-20 Outpt Diag nullFlavo [facility] [id number] Memoria 17:26:00 04:59:00 Services r Outpatient 02 l Imaging Berhane Merced 2017-03-19 2017-03-20 Outpt Diag nullFlavo [facility] [id number] Memoria 17:26:00 04:59:00 Services r Outpatient 02 l Imaging Berhane Last 2017-03-19 2017-03-19 Outpatient ZULMA MonahanH MHOIH [id number] 12:26:00 23:59:00 Hair Linda Jaime 2017-03-19 2017-03-19 Outpatient MHIE MHIE [id number] Memoria 13:00:00 13:00:00 06 tommy Merced 2017-03-19 2017-03-19 Outpatient MHIE MHIE [id number] Memoria 13:00:00 13:00:00 06 tommy Merced 2017-02-10 2017-02-10 Outpatient MHIE MHIE [id number] Memoria 13:00:00 13:00:00 04 tommy Berhane 2017-02-10 2017-02-10 Outpatient MHIE MHIE [id number] Memoria 13:00:00 13:00:00 04 tommy Merced 2016-12-12 2016-12-13 Bedded [facility]Flavo [facility] [id number] Memoria 21:43:00 16:35:00 Outpatient r Merced 04 [facility] 2016-12-12 2016-12-13 Bedded nullFlavo [facility] [id number] Memoria 21:43:00 16:35:00 Outpatient r Merced 04 [facility] 2016-12-12 2016-12-13 Outpatient Hero [facility] [id number] 15:43:00 10:35:00 Hair Rossy Jaime 2016-12-12 2016-12-12 Outpatient MHIE MHIE [id number] Memoria 08:00:00 08:00:00 05 tommy Merced 2016-12-12 2016-12-12 Outpatient MHIE MHIE [id number] Memoria 08:00:00 08:00:00 05 [facility] 2016-11-13 2016-11-14 Day nullFlavo [facility] [id number] Memoria 12:06:00 05:59:00 Surgery r Berhane 03 [facility] 2016-11-13 2016-11-14 Day nullFlavo [facility] [id number] Memoria 12:06:00 05:59:00 Surgery r Berhane 03 [facility] 2016-11-13 2016-11-13 Outpatient Hero [facility] [id number] 06:06:00 23:59:00 Hair Jaya Jaime 2016-11-13 2016-11-13 Outpatient MHIE MHIE [id number] Memoria 08:30:00 08:30:00 03 [facility] 2016-11-13 2016-11-13 Outpatient MHIE MHIE [id number] Memoria 08:30:00 08:30:00 03 [facility] 2016-10-28 2016-10-28 Outpatient MHIE MHIE [id number] Memoria 09:10:00 09:10:00 02 [facility] 2016-10-28 2016-10-28 Outpatient MHIE MHIE [id number] Memoria 09:10:00 09:10:00 02 [facility] 2016-10-16 2016-10-16 Bedded nullFlavo [facility] [id number] Memoria 13:04:00 17:30:00 Outpatient [facility] 01 [facility] 2016-10-16 2016-10-16 Bedded nullFlavo [facility] [id number] Memoria 13:04:00 17:30:00 Outpatient [facility] 01 [facility] 2016-10-16 2016-10-16 Outpatient Hero [facility] [id number] 07:04:00 11:30:00 Hair 01 Jaime 2016-10-14 2016-10-15 Outpt Diag nullFlavo [facility] [id number] Memoria 19:11:00 05:59:00 Services r Outpatient 01 l Imaging [facility] 2016-10-14 2016-10-15 Outpt Diag nullFlavo [facility] [id number] Memoria 19:11:00 05:59:00 Services r Outpatient 01 l [facility] 2016-10-14 2016-10-14 Outpatient Hero, 29 [id number] 13:11:00 23:59:00 Hair 01 Jaime 2016-10-07 2016-10-08 Outpt Diag nullFlavo [facility] [id number] Memoria 17:07:00 05:59:00 Services r Outpatient 00 l [facility] 2016-10-07 2016-10-08 Outpt Diag nullFlavo [facility] [id number] Memoria 17:07:00 05:59:00 Services r Outpatient 00 l [facility] 2016-10-07 2016-10-07 Outpatient Hero [facility] [id number] 11:07:00 23:59:00 Hair Jaime 2016-10-07 2016-10-07 [facility] [id number] [facility] 09:00:00 09:00:00 00 tommy Last 2016-10-07 2016-10-07 [facility] [id number] [facility] 09:00:00 09:00:00 00 tommy Last Results Test Description Test Test Results Result Source Time Comments Comments XR CERVICAL 2020-10- HISTORY: ?Neck pain. Uni versity of SPINE 3 VW 21 FINDINGS: AP, [place] [facility] 20:31:15 open-mouth odontoid, Bran ch lateral and swimmer's views of thecervical spine are obtained which showed no acute fracture or dislocation.Straighteni ng of the normal lordotic curvature at midcervical level issuggestive of neck muscle spasm. C3-C4: Postoperative changes of discectomy with disc plug inserted followedby ACDF. There is probably minimal subsidence of upper posterior edge ofthe disc plug into the lower endplate of C3. Plug is not incorporated intothe vertebral bones. Hardware is intact. Degenerative disc disease of moderate severity noted at C4-C5, C5-6, C6-C7with osteophytes along the ventral vertebral margins as well as dorsalvertebral margins encroaching into the spinal canal causing spinal stenosisat C5-C6, less at C4-C5 and C6-C7 levels. AP view showed prominent uncovertebral osteophytes encroaching into theright neural foramen at C6-C7. Minimal foraminal encroachment noted on bothsides at C4-C5, C5-C6 and into the left neural foramen at C6-C7. Prominenttransverse processes of C7 noted. No cervical rib. CONCLUSIONS: 1. No acute fracture or dislocation. 2. S/P discectomy and ACDF changes at C3-C4.3. Moderate degenerative disc disease at C4-C5, C5-C6 and C6-C7. [facility], Radiant Results Inft User - 11/01/2020 2:32 PM CSTHISTORY: Neck pain.FINDINGS: AP, open-mouth odontoid, lateral and swimmer's views of thecervical spine are obtained which showed no acute fracture or dislocation.Straighteni ng of the normal lordotic curvature at midcervical level issuggestive of neck muscle spasm.C3-C4: Postoperative changes of discectomy with disc plug inserted followedby ACDF. There is probably minimal subsidence of upper posterior edge ofthe disc plug into the lower endplate of C3. Plug is not incorporated intothe vertebral bones. Hardware is intact.Degenerative disc disease of moderate severity noted at C4-C5, C5-6, C6-C7with osteophytes along the ventral vertebral margins as well as dorsalvertebral margins encroaching into the spinal canal causing spinal stenosisat C5-C6, less at C4-C5 and C6-C7 levels.AP view showed prominent uncovertebral osteophytes encroaching into theright neural foramen at C6-C7. Minimal foraminal encroachment noted on bothsides at C4-C5, C5-C6 and into the left neural foramen at C6-C7. Prominenttransverse processes of C7 noted. No cervical rib. CONCLUSIONS: 1. No acute fracture or dislocation. 2. S/P discectomy and ACDF changes at C3-C4.3. Moderate degenerative disc disease at C4-C5, C5-C6 and C6-C7. XR CHEST 2 2019-12- No evidence of acute U niversity of 06 cardiopulmonary [facility] ica 23:01:21 disease.2 VIEWS OF THE Br anch CHEST HISTORY: cough COMPARISON: none TECHNIQUE: PA and lateral views of the chest. FINDINGS: Subcentimeter calcified granuloma seen projecting over the anteriormediastinum on lateral view. Lungs are otherwise clear. There is no focalconsolidation, pleural effusion or pneumothorax. The cardiomediastinal silhouette is within normal limits. ?No acute bonyabnormalities are seen. Chronic anterior superior compression wedging atthe thoracolumbar junction. ACDF changes projecting over the mid cervicalspine. [facility], Radiant Results Inft User - 12/16/2019 5:02 PM CST2 VIEWS OF THE CHESTHISTORY: cough COMPARISON: noneTECHNIQUE: PA and lateral views of the chest.FINDINGS:Subcenti meter calcified granuloma seen projecting over the anteriormediastinum on lateral view. Lungs are otherwise clear. There is no focalconsolidation, pleural effusion or pneumothorax.The cardiomediastinal silhouette is within normal limits. No acute bonyabnormalities are seen. Chronic anterior superior compression wedging atthe thoracolumbar junction. ACDF changes projecting over the mid cervicalspine.IMPRESSIO NNo evidence of acute cardiopulmonary disease. ADC,CLC OR LCC ONLY - INFLUENZA A & B DIRECT ANTIGEN 2019-12 22:45:00 Test Item Value Reference Range Interpretation Comme nts Influenza A (test code = 68768-1) Negative Negative Influenza B (test code = 29492-2) Negative Negative Lab Interpretation (test code = 71075-8) Normal [facility] [id number] 22:40:00 Test Item Value Reference Range Interpretation Comments Streptococcus pyogenes (group A) Negative Negative antigen (test code = 40725-1) Lab Interpretation (test code = Normal 43584-4) [facility]
[2022-10-27] MEDS ORDERED: CYCLOBENZAPRINE 10 MG TAB ONE (17:29)
[2022-10-27 17:49] LABS: Absolute Lymphocytes (CBC) 2.9 K/uL (0.7-4.9); Hematocrit 42.6 % (36.0-45.0); Lymphocytes % 34.9 % (15.3-44.8); MCV 84.8 fL (80-100); MPV 7.8 fL (7.6-11.3); RBC Red Blood Cell Count 5.02 M/uL (3.86-4.86)
--- NOTE | 2022-10-27 18:06 | RAD REPORT ---
EXAM DESCRIPTION: RAD - Chest Single View - 10/27/2022 5:37 pm CLINICAL HISTORY: edema Chest pain. COMPARISON: Chest Pa And Lat (2 Views) dated 03/05/2021; Chest Pa And Lat (2 Views) dated 07/11/2019; Chest Pa And Lat (2 Views) dated 11/04/2016 FINDINGS: Portable technique limits examination quality. The lungs are emphysematous but grossly clear. The heart is normal in size. No displaced fractures. IMPRESSION: No acute intrathoracic process suspected.
[2022-10-27 18:22] LABS: Albumin 3.7 g/dL (3.4-5.0); Bilirubin Total 0.4 mg/dL (0.2-1.0); Protein, Total 7.4 g/dL (6.4-8.2); Troponin High Sensitivity 8.1 pg/mL (<58.9)
[2022-10-27 18:23] LABS: Potassium 3.6 mmol/L (3.5-5.1)
--- NOTE | 2022-10-27 18:53 | RAD REPORT ---
EXAM DESCRIPTION: US - Extrem Venous W Compress Scott - 10/27/2022 6:31 pm CLINICAL HISTORY: edema Bilateral leg edema and swelling. COMPARISON: Upper Lower Extrem Art Multi dated 01/16/2017 TECHNIQUE: Real-time sonographic interrogation of the left and right lower extremity deep venous sys tems was performed. FINDINGS: Normal compressibility, flow augmentation, phasic flow and spontaneous flow is identified in both the left and right lower extremity deep venous systems. IMPRESSION: No sonographic evidence of left or right lower extremity deep venous thrombosis.
--- NOTE | 2022-10-27 19:03 | EDPHYS ---
Physician Documentation [facility] Name: Naman Noel Age: 72 yrs Sex: Female : 1950 Arrival Date: 10/27/2022 Time: 16:55 Bed 20 Private MD: Johnie Frank E ED Physician Roger Hickman HPI: 10/27 17:10 This 72 yrs old Female presents to ER via Ambulatory with complaints of Leg Swelling, rt Back Pain. 17:10 Onset: The symptoms/episode began/occurred this morning. Modifying factors: The patient rt symptoms are alleviated by nothing, the patient symptoms are aggravated by any movement. Severity of symptoms: At their worst the symptoms were moderate. Patient presents to the ED with a lower extremity edema, left greater than right but with mild swelling on the right. The right leg has almost returned to baseline, the left leg still remains somewhat edematous. The patient states that she had an arterial blood flow checked recently that was negative. The patient also reports a right-sided neck pain not radiating to the shoulder, aching in nature, nonradiating. She states that she thinks that she may have slept on it wrong. It is worse with movement. She reports a shortness of breath which she attributes to her smoking. Denies chest pain. Denies other acute complaints, symptoms are moderate in severity. The patient did take one of her home hydrocodone's at home that did not improve her symptoms.. Historical: - Allergies: 17:10 Morphine; jh5 - PMHx: 17:10 Hyperlipidemia; Hypertension; jh5 - Immunization history:: Adult Immunizations up to date. - Social history:: Smoking status: Patient reports the use of cigarette tobacco products, smokes one pack cigarettes per day. - Family history:: not pertinent. ROS: 17:10 Constitutional: Negative for fever, chills, and weight loss, Eyes: Negative for injury, rt pain, redness, and discharge, ENT: Negative for injury, pain, and discharge, Abdomen/GI: Negative for abdominal pain, nausea, vomiting, diarrhea, and constipation, Back: Negative for injury and pain, Skin: Negative for injury, rash, and discoloration, Neuro: Negative for headache, weakness, numbness, tingling, and seizure, Psych: Negative for depression, anxiety, suicide ideation, homicidal ideation, and hallucinations. 17:10 Neck: Positive for pain with movement, Negative for injury or acute deformity. 17:10 Cardiovascular: Positive for edema, Negative for chest pain. 17:10 Respiratory: Positive for shortness of breath, Negative for acute changes. 17:10 MS/extremity: Positive for Edema, negative for injury. Exam: 17:10 Constitutional: This is a well developed, well nourished patient who is awake, alert, rt and in no acute distress. Head/Face: Normocephalic, atraumatic. Eyes: Pupils equal round and reactive to light, extra-ocular motions intact. Lids and lashes normal. Conjunctiva and sclera are non-icteric and not injected. Cornea within normal limits. Periorbital areas with no swelling, redness, or edema. Chest/axilla: Normal chest wall appearance and motion. Nontender with no deformity. No lesions are appreciated. Cardiovascular: Regular rate and rhythm with a normal S1 and S2. No gallops, murmurs, or rubs. Normal PMI, no JVD. No pulse deficits. Respiratory: Lungs have equal breath sounds bilaterally, clear to auscultation and percussion. No rales, rhonchi or wheezes noted. No increased work of breathing, no retractions or nasal flaring. Abdomen/GI: Soft, non-tender, with normal bowel sounds. No distension or tympany. No guarding or rebound. No evidence of tenderness throughout. Skin: Warm, dry with normal turgor. Normal color with no rashes, no lesions, and no evidence of cellulitis. Neuro: Awake and alert, GCS 15, oriented to person, place, time, and situation. Cranial nerves II-XII grossly intact. Motor strength 5/5 in all extremities. Sensory grossly intact. Cerebellar exam normal. Normal gait. Psych: Awake, alert, with orientation to person, place and time. Behavior, mood, and affect are within normal limits. 17:10 Neck: Tenderness to the right superior trapezius muscle, no deformities noted, no step-offs.. 17:10 Musculoskeletal/extremity: 1+ edema to left lower extremity, no erythema noted, no swelling noted to the right lower extremity. Dorsalis pedis pulses are 2+ bilaterally.. 18:12 ECG was reviewed by the Attending Physician. rt Vital Signs: 17:06 BP 151 / 78; Pulse 74; Resp 18; Temp 98.6; Pulse Ox 97% ; Weight 83.46 kg; Height 5 ft. jh5 5 in. (165.10 cm); Pain 8/10; 17:45 BP 115 / 92; Pulse 76; Resp 18; Pulse Ox 97% on R/A; db 18:08 BP 157 / 76; Pulse 78; Resp 18; Pulse Ox 98% on R/A; db 19:30 BP 164 / 81; Pulse 71; Resp 16; Pulse Ox 98% ; jj7 17:06 Body Mass Index 30.62 (83.46 kg, 165.10 cm) jh5 MDM: 17:00 Patient medically screened. rt 19:03 Differential diagnosis: Muscle spasm, musculoskeletal pain, peripheral edema, rt peripheral arterial disease, DVT. Data reviewed: vital signs, nurses notes, lab test result(s), EKG, radiologic studies. I considered the following discharge prescriptions or medication management in the emergency department Medications were administered in the Emergency Department. See MAR. Independent interpretation of the following test(s) in the Emergency Department EKG: See my EKG interpretation above. Test considered but Not performed: Ultrasound Patient has strong pedal pulses, arterial Dopplers not indicated to rule out acute arterial occlusion. Care significantly affected by the following chronic conditions: Tobacco abuse. Counseling: I had a detailed discussion with the patient and/or guardian regarding: the historical points, exam findings, and any diagnostic results supporting the discharge/admit diagnosis, radiology results, the need for outpatient follow up, smoking cessation. Response to treatment: the patient's symptoms have mildly improved after treatment. 10/27 17:09 Order name: CBC with Diff; Complete Time: 18:12 rt 10/27 17:09 Order name: CMP; Complete Time: 18:24 rt 10/27 17:09 Order name: BNP; Complete Time: 18:24 rt 10/27 17:09 Order name: Troponin High Sensitivity; Complete Time: 18:24 rt 10/27 17:09 Order name: Chest Single View XRAY; Complete Time: 18:12 rt 10/27 17:09 Order name: Extrem Venous W Compression Scott US; Complete Time: 18:54 rt 10/27 17:09 Order name: EKG; Complete Time: 17:10 rt 10/27 17:09 Order name: EKG - Nurse/Tech; Complete Time: 18:10 rt EC:12 Rate is 73 beats/min. Rhythm is regular, Normal Sinus Rhythm with No ectopy. QRS [place] rt is Normal. OK interval is normal. QRS interval is normal. QT interval is normal. No Q waves. T waves are Normal. No ST changes noted. Clinical impression: Normal ECG. Interpreted by me. Administered Medications: 17:20 Drug: Flexeril (cyclobenzaprine) 10 mg Route: PO; db 17:59 Follow up: Response: No adverse reaction db 19:36 Follow up: Response: No adverse reaction jj7 19:29 Drug: Ketorolac 30 mg Route: IVP; Site: left antecubital; jj7 19:36 Follow up: Response: No adverse reaction jj7 Disposition Summary: 10/27/22 19:02 Discharge Ordered Location: Home rt Problem: new rt Symptoms: are unchanged rt Condition: Stable rt Diagnosis - Edema, unspecified rt - neck pain rt Followup: rt - With: Private Physician - When: 2 - 3 days - Reason: Discharge Instructions: - Discharge Summary Sheet rt - Neck Exercises rt - Peripheral Edema rt Forms: - Medication Reconciliation Form rt - Thank You Letter rt - Antibiotic Education rt - Prescription Opioid Use rt Signatures: Dispatcher [employer] Nicolette Kebede RN RN jh5 Sylvie Mireles RN RN jj7 Triny Sofia RN RN db Roger Hickman MD MD rt
--- NOTE | 2022-10-27 19:03 | ER ---
Nurse's Notes [facility] Name: Naman Noel Age: 72 yrs Sex: Female : 1950 Arrival Date: 10/27/2022 Time: 16:55 Bed 20 Private MD: Johnie Frank E Diagnosis: Edema, unspecified;neck pain Presentation: 10/27 17:06 Chief complaint: Patient states: I have shooting pain down right side of my neck, jh5 shoulder, spine. Swelling in both feet and calves. Coronavirus screen: Vaccine status: Patient reports receiving the 2nd dose of the covid vaccine. Ebola Screen: Patient negative for fever greater than or equal to 101.5 degrees Fahrenheit, and additional compatible Ebola Virus Disease symptoms Patient denies exposure to infectious person. Patient denies travel to an Ebola-affected area in the 21 days before illness onset. Initial Sepsis Screen: Does the patient meet any 2 criteria? No. Patient's initial sepsis screen is negative. Does the patient have a suspected source of infection? No. Patient's initial sepsis screen is negative. Risk Assessment: Do you want to hurt yourself or someone else? Patient reports no desire to harm self or others. 17:06 Method Of Arrival: Ambulatory 5 17:06 Acuity: RAMON 3 jh5 19:34 Onset of symptoms is unknown. jj7 Triage Assessment: 17:10 General: Appears in no apparent distress. uncomfortable, Behavior is calm, cooperative, jh5 appropriate for age. Musculoskeletal: Historical: - Allergies: 17:10 Morphine; jh5 - PMHx: 17:10 Hyperlipidemia; Hypertension; jh5 - Immunization history:: Adult Immunizations up to date. - Social history:: Smoking status: Patient reports the use of cigarette tobacco products, smokes one pack cigarettes per day. - Family history:: not pertinent. Screenin:[facility] ED Fall Risk Assessment (Adult) History of falling in the last 3 months, db including since admission No falls in past 3 months (0 pts) Confusion or Disorientation No (0 pts) Intoxicated or Sedated No (0 pts) Impaired Gait No (0 pts) Mobility Assist Device Used No (0 pt) Altered Elimination No (0 pt) Score/Fall Risk Level 0 - 2 = Low Risk Oriented to surroundings, Maintained a safe environment. Abuse screen: Denies threats or abuse. Denies injuries from another. Nutritional screening: No deficits noted. Tuberculosis screening: No symptoms or risk factors identified. Assessment: 17:20 Reassessment: Patient appears in no apparent distress at this time. Patient and/or db family updated on plan of care and expected duration. Pain level reassessed. Patient is alert, oriented x 3, equal unlabored respirations, skin warm/dry/pink. BACK PAIN AND LOWER LEG PAIN AND SWELLING. General: Appears in no apparent distress. comfortable, Behavior is calm, cooperative, quiet. Pain: Complains of pain in back, right leg and left leg. Neuro: No deficits noted. Level of Consciousness is awake, alert, obeys commands, Oriented to person, place, time, situation, Speech is normal. Cardiovascular: No deficits noted. Denies chest pain. Respiratory: No deficits noted. Airway is patent Respiratory effort is even, unlabored, Respiratory pattern is regular, symmetrical, Denies shortness of breath. GI: No deficits noted. No signs and/or symptoms were reported involving the gastrointestinal system. : No deficits noted. No signs and/or symptoms were reported regarding the genitourinary system. 18:11 Reassessment: Patient appears in no apparent distress at this time. No changes from db previously documented assessment. Patient and/or family updated on plan of care and expected duration. Pain level reassessed. Patient is alert, oriented x 3, equal unlabored respirations, skin warm/dry/pink. PATIENT AMBULATORY TO RESTROOM. 18:25 Reassessment: Patient appears in no apparent distress at this time. Patient is alert, db oriented x 3, equal unlabored respirations, skin warm/dry/pink. SUPPORT [employer] IS AT BEDSIDE. Vital Signs: 17:06 BP 151 / 78; Pulse 74; Resp 18; Temp 98.6; Pulse Ox 97% ; Weight 83.46 kg; Height 5 ft. jh5 5 in. (165.10 cm); Pain 8/10; 17:45 BP 115 / 92; Pulse 76; Resp 18; Pulse Ox 97% on R/A; db 18:08 BP 157 / 76; Pulse 78; Resp 18; Pulse Ox 98% on R/A; db 19:30 BP 164 / 81; Pulse 71; Resp 16; Pulse Ox 98% ; jj7 17:06 Body Mass Index 30.62 (83.46 kg, 165.10 cm) 5 ED Course: 16:55 Patient arrived in ED. am2 16:55 Johnie Frank MD is Private Physician. am2 16:56 Roger Hickman MD is Attending Physician. rt 17:06 Triny Sofia, RN is Primary Nurse. db 17:10 Triage completed. jh5 17:10 Arm band placed on right wrist. jh5 17:30 Troponin High Sensitivity Sent. bc6 17:30 BNP Sent. bc6 17:30 CMP Sent. bc6 17:30 CBC with Diff Sent. bc6 17:30 Initial lab(s) drawn, by me, sent to lab. Inserted saline lock: 20 gauge in left bc6 antecubital area, using aseptic technique. 17:39 Chest Single View XRAY In Process Unspecified. EDMS 18:11 Patient has correct armband on for positive identification. Bed in low position. Call db light in reach. Side rails up X 1. Client placed on continuous cardiac and pulse oximetry monitoring. NIBP monitoring applied. Warm blanket given. 18:32 Extrem Venous W Compression Scott US In Process Unspecified. EDMS 19:07 Report given to PAUL. db 19:32 IV discontinued, intact, bleeding controlled, No redness/swelling at site. Pressure jj7 dressing applied. 19:34 No provider procedures requiring assistance completed. jj7 Administered Medications: 17:20 Drug: Flexeril (cyclobenzaprine) 10 mg Route: PO; db 17:59 Follow up: Response: No adverse reaction db 19:36 Follow up: Response: No adverse reaction jj7 19:29 Drug: Ketorolac 30 mg Route: IVP; Site: left antecubital; jj7 19:36 Follow up: Response: No adverse reaction jj7 Medication: 19:34 VIS not applicable for this client. jj7 Outcome: 19:02 Discharge ordered by . rt 19:32 Discharged to home ambulatory, with family. jj7 19:32 Condition: good 19:32 Discharge instructions given to patient, Instructed on discharge instructions, follow up and referral plans. Demonstrated understanding of instructions, follow-up care. 19:37 Patient left the ED. jj7 Signatures: Dispatcher [employer] [facility] Livier An 2 Nicolette Long, RN RN 5 Sylvie Mireles, RN RN jj7 Triny Sofia, RN RN db Roger Hickman MD MD rt Malia Edmond 6 Corrections: (The following items were deleted from the chart) 18:12 18:11 Reassessment: Patient appears in no apparent distress at this time. No changes db from previously documented assessment. Patient and/or family updated on plan of care and expected duration. Pain level reassessed. Patient is alert, oriented x 3, equal unlabored respirations, skin warm/dry/pink. db
[2022-10-27] MEDS ORDERED: KETOROLAC 30 MG/ML INJ ONE (19:21)
[2022-10-27 20:07] VITALS: TEMP 98.6
[2022-10-27 20:09] VITALS: O2SAT 98
[2022-10-27 20:10] VITALS: BP 164/81
--- NOTE | 2022-10-28 07:36 | EKG ---
Test Date: 2022-10-27 Test Time: 18:03:51 [employer] Machine Operator: NORA MEASUREMENT RESULTS: Intervals: Rate: 73 GA: 166 QRSD: 80 QT: 410 QTc: 451 [place]: P: 42 GA: 166 QRS: 22 T: 53 INTERPRETIVE STATEMENTS: Normal sinus rhythm Normal ECG Compared to ECG 12/06/1993 10:58:00 No significant changes Electronically Signed On 10-28-22 07:35:00 DIRECTOR GIFT by Vinicio Douglas
== END 2022-10-27 19:37 | disposition home or self-care (01) ==
LOC: ER 16:50
DX: M54.2 Cervicalgia (principal); R60.9 Edema, unspecified; I10 Essential (primary) hypertension; E78.5 Hyperlipidemia, unspecified; F17.210 Nicotine dependence, cigarettes, uncomplicated; Z88.5 Allergy status to narcotic agent
CPT/HCPCS: 36415; 71045; 80053; 83880; 84484; 85025; 93005; 93970; 96374; 99284

== ENCOUNTER 2022-12-17 10:24 | Emergency (ER) | payer OTHER ==
--- OUTSIDE RECORDS SUMMARY | 2022-12-17 10:31 | XMS REPORT | Continuity of Care Document ---
:1950 Author Organization [facility] t Address [address] [place] [address] [place] [id number] Care Team Providers Name Role Phone Yisel Diehl Primary Care Physician Team, [facility] Attending Clinician Unavailsandra Alvarado RN, Jennifer Attending Clinician Unavailable Only, Ang Db Test Attending Clinician Unavailable Martha Weiner Attending Clinician MARTHA OSCAR Attending Clinician Unavailable FORREST SANCHEZ Attending Clinician Unavailable Doctor Unassigned, [place] Attending Clinician Unavailable YAIMA HANLEY Attending Clinician [...] 11-19 10:24:00 l 11/19/2016 00:00: Kalia maya [address] CERVICALGI Diagnosis Active 2016-11-13 Memoria A, CERVICALGI 10-28 06:07:00 l CERVICAL A, 00:00: [place] DISC CERVICAL 00 DEGENERATI DISC ON DEGENERATI ON Active 10/28/2016 [facility] BEDDED BEDDED Diagnosis Active 2015-102016-10-16 Ms moria OUTPATIENT OUTPATIENT 07:14:00 l /CT GUIDED /CT GUIDED 00:00: Jose chery NECK BX NECK BX 00 Active 10/09/2016 [facility] M46.22 - M46.22 - Diagnosis Active 2015-102016-10-10 Memoria "OSTEOMYEL "OSTEOMYEL 12-08 14:05:00 l ITIS OF ITIS OF 00:01: [place] VERTEBRA, VERTEBRA, 00 CER CER Active 10/07/2016 MARGOT Last Hyperlipid Hyperlipi Problem Resolve 2017-03-22 Anupama emia demia d 04:16:12 l (disorder) (disorder) Jose chery Resolved Problem 03/22/2017 [facility], STEVEN Last, TSEVEN [place] Hypertensi Hypertens Problem Resolve 2017-03-22 Memoria ve zafar d 04:16:12 l disorder, disorder, Herm rene systemic systemic arterial arterial (disorder) (disorder) Resolved Problem 03/22/2017 [facility], STEVEN Last, OPIFidencio [place] Transient Transient Problem Resolve 2017-03-22 Memoria ischemic ischemic d 04:16:12 l attack attack [place] (disorder) (disorder) Resolved Problem 03/22/2017 [facility], STEVEN Last, OPIFidencio [place] Chronic Chronic Problem Active 2017-03-22 Ms moristeph obstructiv obstructiv 04:16:12 l e lung e lung [place] disease disease (disorder) (disorder) Active Problem 03/22/2017 [facility] STEVEN Last Degenerati Degenerat Problem Active 2017-03-22 Memoria on of ion of 04:16:12 l cervical cervical Kalia n interverte interverte bral disc bral disc (disorder) (disorder) Active Problem 03/22/2017 [facility] STEVEN Last Obesity Obesity Problem Active 2017-03-22 Me moria (disorder) (disorder) 04:16:12 l Active [place] Problem 03/22/2017 [facility] STEVEN Last Obstructiv Obstructi Problem Active 2017-03-22 Memoria e sleep ve sleep 04:16:12 l apnea apnea [place] syndrome syndrome (disorder) (disorder) Active Problem 03/22/2017 [facility] STEVEN Last OTHER OTHER Diagnosis Active 2016-12-13 Mem oria CERVICAL CERVICAL 10:24:00 l DISC DISC [place] DEGENERATI DEGENERATI ON, HIGH C ON, HIGH C Active [facility] CERVICALGI CERVICALG Diagnosis Active 2016-12-13 Memoria A [place] Active 10:24:00 l [facility] No known No known Disease Unive rs active active ity of problems problems [facility] Allergies, Adverse Reactions, Alerts Allergy Allergy [...] s INGREDI 05-05 ity of 00:00: Medical [place] Morphine Propensi Active Swelling arm Univ ers ty to 05-05 ity of adverse 00:00: [place] reaction 00 [facility] NO KNOWN Drug Active Univers ALLERGIE Class ity of S [facility] morphine morphine Active Just[place] Last Social History Social Habit Start Date Stop Date Quantity Comments Source History of Smokes tobacco University of tobacco use daily [facility] Exposure to 2022-02-09 2022-02-19 Not sure [facility] SARS-CoV-2 00:00:00 12:36:00 [facility] (event) [place] Tobacco use and 2021-04-16 2021-04-16 Smokeless tobacco Un iversity of exposure 00:00:00 00:00:00 non-user [facility] Social History 2016-10-07 2016-10-07 [facility] 18:49:18 18:49:18 Sex [birth year] [facility] y of 00:00:00 00:00:00 [facility] Smoking Status Start Date Stop Date Source Smokes tobacco daily 2021-04-16 00:00:00 Univers ity of [facility] Unknown if ever smoked [facility] y of [facility] Medications Ordered Filled Start Stop Current Ordering Indication Dosage Frequency Signature Comments Components Source Medication Medication Date Date Medication? Clinician (SIG) Name Name traMADoL 2021- No [id number] 50mg 50 mg, U nivers (ULTRAM) 12-03 Oral, ONCE ity of tablet 50 03:15: 02:25 NOW, 1 [place] mg 00 :00 dose, On [facility] 12/02/21 at 2115, CYNTHIA ketorolac 2021- No [id number] 30mg 30 mg, Univers (TORADOL) 12-03 Intramuscu ity of injection 03:15: 02:25 lar, ONCE, [place] 30 mg 00 :00 1 dose, On [facility] 12/02/21 at 2115, CYNTHIA cyclobenzap 2021- No [id number] 10mg 10 mg, Univers rine 12-03 Oral, ONCE ity of (FLEXERIL) 03:15: 02:25 NOW, 1 [place] tablet 10 00 :00 dose, On Medica l mg Mon Branch 12/02/21 at 211, CYNTHIA dexamethaso 2021- No [id number] 10mg 10 mg, Univers ne 12-03 Intramuscu ity of (DECADRON 03:15: 02:25 lar, ONCE, [place] PHOSPHATE) 00 :00 1 dose, On Med ical injection Mon Branch 10 mg 12/02/21 at 211, STAT predniSONE 2021- No [id number] 40mg Take 2 Univers 20 mg 12-03 tablets by ity of tablet 00:00: 05:59 mouth [place] 00 :00 daily for Medical 5 days. Branch cyclobenzap Yes [id number] 10mg Take 1 Univers rine 10 mg 2-21 tablet by ity of tablet 00:00: mouth 3 [place] 00 (three) Medical times Branch daily as needed for Muscle Spasms. cyclobenzap Yes [id number] 10mg Take 1 Univers rine 10 mg 2-21 tablet by ity of tablet 00:00: mouth 3 [place] 00 (three) Medical times Branch daily as needed for Muscle Spasms. cyclobenzap Yes [id number] 10mg Take 1 Univers rine 10 mg 2-21 tablet by ity of tablet 00:00: mouth 3 [place] 00 (three) Medical times Branch daily as needed for Muscle Spasms. cyclobenzap Yes [id number] 10mg Take 1 Univers rine 10 mg 2-21 tablet by ity of tablet 00:00: mouth 3 [place] 00 (three) Medical times Branch daily as needed for Muscle Spasms. cyclobenzap Yes [id number] 10mg Take 1 Univers rine 10 mg 2-21 tablet by ity of tablet 00:00: mouth 3 [place] 00 (three) Medical times Branch daily as needed for Muscle Spasms. cyclobenzap Yes [id number] 10mg Take 1 Univers rine 10 mg 2-21 tablet by ity of tablet 00:00: mouth 3 [place] 00 (three) Medical times Branch daily as needed for Muscle Spasms. methylPREDN 2020-10 Yes [id number] Take by Univers ISolone 4 2-30 mouth ity of mg tablets 00:00: SEE-INSTRU [place] 00 CTIONS. Medical follow Branch package directions methylPREDN 2020-10 Yes [id number] Take by Univers ISolone 4 2-30 mouth ity of mg tablets 00:00: SEE-INSTRU [place] 00 CTIONS. Medical follow Branch package directions methylPREDN 2020-10 Yes [id number] Take by Univers ISolone 4 2-30 mouth ity of mg tablets 00:00: SEE-INSTRU [place] 00 CTIONS. Medical follow Branch package directions methylPREDN 2020-10 Yes [id number] Take by Univers ISolone 4 2-30 mouth ity of mg tablets 00:00: SEE-INSTRU [place] 00 CTIONS. Medical follow Branch package directions methylPREDN 2020-10 Yes [id number] Take by Univers ISolone 4 2-30 mouth ity of mg tablets 00:00: SEE-INSTRU [place] 00 CTIONS. Medical follow Branch package directions methylPREDN 2020-10 Yes [id number] Take by Univers ISolone 4 2-30 mouth ity of mg tablets 00:00: SEE-INSTRU [place] 00 CTIONS. Medical follow Branch package directions methylPREDN 2020-10 Yes [id number] Take by Univers ISolone 4 2-30 mouth ity of mg tablets 00:00: SEE-INSTRU [place] 00 CTIONS. Medical follow Branch package directions methylPREDN 2020-10 Yes [id number] Take by Univers ISolone 4 2-30 mouth ity of mg tablets 00:00: SEE-INSTRU [place] 00 CTIONS. Medical follow Branch package directions methylPREDN 2020-10 Yes [id number] Take by Univers ISolone 4 2-30 mouth ity of mg tablets 00:00: SEE-INSTRU [place] 00 CTIONS. Medical follow Branch package directions methylPREDN 2020-10 Yes [id number] Take by Univers ISolone 4 2-30 mouth ity of mg tablets 00:00: SEE-INSTRU [place] 00 CTIONS. Medical follow Branch package directions traMADoL 2020-10- No 50mg 50 mg, Univer s (ULTRAM) 2-09 10- Oral, ity of tablet 50 23:30: 22:35 ONCE, 1 [place] mg 00 :[place] dose, On Medical Wed Branch 10/09/21 at 1730, Routine ibuprofen 2020-10- No 600mg 600 mg, Uni vers (IBU) 10-09 Oral, ity of tablet 600 23:15: 22:34 ONCE, 1 [place] mg 00 :00 dose, On Medical Wed Branch 10/09/21 at 1715, CYNTHIA gabapentin 2020-10- [...] 15 :00 Medical Branch promethazin 2020-10- No [id number] 5mL Take 5 mL Univers e-codeine 10-09 by mouth 4 ity of 6.25-10 19:22: 00:00 (four) [place] mg/5 mL 15 :00 times Medical syrup daily as Branch needed for Cough. gabapentin 2020-10 Yes [id number] 300mg Take 1 Univers 300 mg 2-29 capsule by ity of capsule 00:00: mouth 3 [place] 00 (three) Medical times Branch daily as needed for Pain (scale 4-6) or Pain (scale 7-10). gabapentin 2020-10 Yes [id number] 300mg Take 1 Univers 300 mg 2-29 capsule by ity of capsule 00:00: mouth 3 [place] 00 (three) Medical times Branch daily as needed for Pain (scale 4-6) or Pain (scale 7-10). gabapentin 2020-10 Yes [id number] 300mg Take 1 Univers 300 mg -29 capsule by ity of capsule 00:00: mouth 3 [place] 00 (three) Medical times Branch daily as needed for Pain (scale 4-6) or Pain (scale 7-10). gabapentin 2020-10 Yes [id number] 300mg Take 1 Univers 300 mg 2-29 capsule by ity of capsule 00:00: mouth 3 (three) Medical times Branch daily as needed for Pain (scale 4-6) or Pain (scale 7-10). gabapentin 2020-10 Yes [id number] 300mg Take 1 Univers 300 mg 2-29 capsule by ity of capsule 00:00: mouth 3 (three) Medical times Branch daily as needed for Pain (scale 4-6) or Pain (scale 7-10). gabapentin 2020-10 Yes [id number] 300mg Take 1 Univers 300 mg 2-29 capsule by ity of capsule 00:00: mouth (three) Medical times Branch daily as needed for Pain (scale 4-6) or Pain (scale 7-10). gabapentin 2020-10 Yes [id number] 300mg Take 1 Univers 300 mg 2-29 capsule by ity of capsule 00:00: mouth (three) Medical times Branch daily as needed for Pain (scale 4-6) or Pain (scale 7-10). gabapentin 2020-10 Yes [id number] 300mg Take 1 Univers 300 mg 2-29 capsule by ity of capsule 00:00: mouth (three) Medical times Branch daily as needed for Pain (scale 4-6) or Pain (scale 7-10). gabapentin 2020-10 Yes [id number] 300mg Take 1 Univers 300 mg 2-29 capsule by ity of capsule 00:00: mouth (three) Medical times Branch daily as needed for Pain (scale 4-6) or Pain (scale 7-10). gabapentin 2020-10 Yes [id number] 300mg Take 1 Univers 300 mg 2-29 capsule by ity of capsule 00:00: mouth 3 (three) Medical times Branch daily as needed for Pain (scale 4-6) or Pain (scale 7-10). etodolac 2020-10- No [id number] 300mg Take 1 Univers 300 mg 2-29 01-06 capsule by ity of capsule 00:00: 05:59 mouth 3 00 :00 (three) Medical times Branch daily with meals for 7 days. etodolac 2020-10- No [id number] 300mg Take 1 Univers 300 mg 10-17 capsule by ity of capsule 00:00: 05:59 mouth 3 [place] 00 :00 (three) Medical times [place] daily with meals for 7 days. etodolac 2020-10- No [id number] 300mg Take 1 Univers 300 mg 10-17 capsule by ity of capsule 00:00: 05:59 mouth 3 [place] 00 :00 (three) Medical times [place] daily with meals for 7 days. etodolac 2020-10- No [id number] 300mg Take 1 Univers 300 mg 10-17 capsule by ity of capsule 00:00: 05:59 mouth 3 [place] 00 :00 (three) Medical times [place] daily with meals for 7 days. methocarbam 2020-10- No [id number] 1500mg Take 2 Univers oL 750 mg 10-15 tablets by ity of tablet 00:00: 05:59 mouth 4 [place] 00 :00 (four) Medical times [place] daily for 5 days. methocarbam 2020-10- No [id number] 1500mg Take 2 Univers oL 750 mg 10-15 tablets by ity of tablet 00:00: 05:59 mouth 4 [place] 00 :00 (four) Medical times [place] daily for 5 days. aspirin 81 2020-0 Yes [id number] 81mg Take 81 mg Univers mg EC 3-16 by mouth ity of tablet 21:28: daily. [address] aspirin 81 2020-0 Yes [id number] 81mg Take 81 mg Univers mg EC 3-16 by mouth ity of tablet 21:28: daily. [address] aspirin 81 2020-0 Yes [id number] 81mg Take 81 mg Univers mg EC 3-16 by mouth ity of tablet 21:28: daily. [address] aspirin 81 2020-0 Yes [id number] 81mg Take 81 mg Univers mg EC 3-16 by mouth ity of tablet 21:28: daily. [address] aspirin 81 2020-0 Yes [id number] 81mg Take 81 mg Univers mg EC 3-16 by mouth ity of tablet 21:28: daily. [address] aspirin 81 2020-0 Yes [id number] 81mg Take 81 mg Univers mg EC 3-16 by mouth ity of tablet 21:28: daily. [address] Branch aspirin 81 2020-0 Yes [id number] 81mg Take 81 mg Univers mg EC 3-16 by mouth ity of tablet 21:28: daily. [address] Branch aspirin 81 2020-0 Yes [id number] 81mg Take 81 mg Univers mg EC 3-16 by mouth ity of tablet 21:28: daily. [address] aspirin 81 2020-0 Yes [id number] 81mg Take 81 mg Univers mg EC 3-16 by mouth ity of tablet 21:28: daily. [address] Branch clonazePAM 2020-0 Yes [id number] 1mg Take 1 mg Univers 1 mg tablet 3-16 by mouth ity of 21:28: daily. [address] Branch promethazin 2020-0 Yes [id number] 5mL Take 5 mL Univers e-codeine 3-16 by mouth 4 ity of 6.25-10 21:28: (four) [place] mg/5 mL 56 times Medical syrup daily as Branch needed for Cough. metoprolol 2020-0 Yes [id number] 50mg Take 50 mg Univers tartrate 50 3-16 by mouth 2 it y of mg tablet 21:28: (two) [place] 56 times Medical daily. Branch albuterol 2020-0 Yes [id number] 2{puff} Inhale 2 Univers (VENTOLIN 3-16 Puffs ity of HFA) 90 21:28: every 6 [place] mcg/actuati 56 (six) Medical on inhaler hours as Branc h needed for Wheezing or Shortness of Breath. HYDROcodone 2020-0 Yes [id number] 1{tbl} Take 1 Univers -acetaminop 3-16 tablet by ity of hen 7.5-325 21:28: mouth [place] mg per 56 every 6 Medical tablet (six) Branch hours as needed for Pain. clonazePAM 2020-0 Yes [id number] 1mg Take 1 mg Univers 1 mg tablet 3-16 by mouth ity of 21:28: daily. [place] [address] Medical Branch promethazin 2020-0 Yes [id number] 5mL Take 5 mL Univers e-codeine 3-16 by mouth 4 ity of 6.25-10 21:28: (four) [place] mg/5 mL 56 times Medical syrup daily as Branch needed for Cough. metoprolol 2020-0 Yes [id number] 50mg Take 50 mg Univers tartrate 50 3-16 by mouth 2 it y of mg tablet 21:28: (two) [place] 56 times Medical daily. Branch albuterol 2020-0 Yes [id number] 2{puff} Inhale 2 Univers (VENTOLIN 3-16 Puffs ity of HFA) 90 21:28: every 6 [place] mcg/actuati 56 (six) Medical on inhaler hours as Branc h needed for Wheezing or Shortness of Breath. HYDROcodone 2020-0 Yes [id number] 1{tbl} Take 1 Univers -acetaminop 3-16 tablet by ity of hen 7.5-325 21:28: mouth [place] mg per 56 every 6 Medical tablet (six) Branch hours as needed for Pain. clonazePAM 2020-0 Yes [id number] 1mg Take 1 mg Univers 1 mg tablet 3-16 by mouth ity of 21:28: daily. [place] [address] Medical Branch promethazin 2020-0 Yes [id number] 5mL Take 5 mL Univers e-codeine 3-16 by mouth 4 ity of 6.25-10 21:28: (four) [place] mg/5 mL 56 times Medical syrup daily as Branch needed for Cough. metoprolol 2020-0 Yes [id number] 50mg Take 50 mg Univers tartrate 50 3-16 by mouth 2 it y of mg tablet 21:28: (two) [place] 56 times Medical daily. Branch albuterol 2020-0 Yes [id number] 2{puff} Inhale 2 Univers (VENTOLIN 3-16 Puffs ity of HFA) 90 21:28: every 6 [place] mcg/actuati 56 (six) Medical on inhaler hours as Branc h needed for Wheezing or Shortness of Breath. HYDROcodone 2020-0 Yes [id number] 1{tbl} Take 1 Univers -acetaminop 3-16 tablet by ity of hen 7.5-325 21:28: mouth [place] mg per 56 every 6 Medical tablet (six) Branch hours as needed for Pain. clonazePAM 2020-0 Yes [id number] 1mg Take 1 mg Univers 1 mg tablet 3-16 by mouth ity of 21:28: daily. [place] [address] Medical Branch promethazin 2020-0 Yes [id number] 5mL Take 5 mL Univers e-codeine 3-16 by mouth 4 ity of 6.25-10 21:28: (four) [place] mg/5 mL 56 times Medical syrup daily as Branch needed for Cough. metoprolol 2020-0 Yes [id number] 50mg Take 50 mg Univers tartrate 50 3-16 by mouth 2 it y of mg tablet 21:28: (two) [place] 56 times Medical daily. Branch albuterol 2020-0 Yes [id number] 2{puff} Inhale 2 Univers (VENTOLIN 3-16 Puffs ity of HFA) 90 21:28: every 6 [place] mcg/actuati 56 (six) Medical on inhaler hours as Branc h needed for Wheezing or Shortness of Breath. HYDROcodone 2020-0 Yes [id number] 1{tbl} Take 1 Univers -acetaminop 3-16 tablet by ity of hen 7.5-325 21:28: mouth [place] mg per 56 every 6 Medical tablet (six) Branch hours as needed for Pain. clonazePAM 2020-0 Yes [id number] 1mg Take 1 mg Univers 1 mg tablet 3-16 by mouth ity of 21:28: daily. [place] [address] Medical Branch promethazin 2020-0 Yes [id number] 5mL Take 5 mL Univers e-codeine 3-16 by mouth 4 ity of 6.25-10 21:28: (four) [place] mg/5 mL 56 times Medical syrup daily as Branch needed for Cough. metoprolol 2020-0 Yes [id number] 50mg Take 50 mg Univers tartrate 50 3-16 by mouth 2 it y of mg tablet 21:28: (two) [place] 56 times Medical daily. Branch albuterol 2020-0 Yes [id number] 2{puff} Inhale 2 Univers (VENTOLIN 3-16 Puffs ity of HFA) 90 21:28: every 6 [place] mcg/actuati 56 (six) Medical on inhaler hours as Branc h needed for Wheezing or Shortness of Breath. HYDROcodone 2020-0 Yes [id number] 1{tbl} Take 1 Univers -acetaminop 3-16 tablet by ity of hen 7.5-325 21:28: mouth [place] mg per 56 every 6 Medical tablet (six) Branch hours as needed for Pain. clonazePAM 2020-0 Yes [id number] 1mg Take 1 mg Univers 1 mg tablet 3-16 by mouth ity of 21:28: daily. [place] [address] Medical Branch promethazin 2020-0 Yes [id number] 5mL Take 5 mL Univers e-codeine 3-16 by mouth 4 ity of 6.25-10 21:28: (four) [place] mg/5 mL 56 times Medical syrup daily as Branch needed for Cough. metoprolol 2020-0 Yes [id number] 50mg Take 50 mg Univers tartrate 50 3-16 by mouth 2 it y of mg tablet 21:28: (two) [place] 56 times Medical daily. Branch albuterol 2020-0 Yes [id number] 2{puff} Inhale 2 Univers (VENTOLIN 3-16 Puffs ity of HFA) 90 21:28: every 6 [place] mcg/actuati 56 (six) Medical on inhaler hours as Branc h needed for Wheezing or Shortness of Breath. HYDROcodone 2020-0 Yes [id number] 1{tbl} Take 1 Univers -acetaminop 3-16 tablet by ity of hen 7.5-325 21:28: mouth [place] mg per 56 every 6 Medical tablet (six) Branch hours as needed for Pain. clonazePAM 2020-0 Yes [id number] 1mg Take 1 mg Univers 1 mg tablet 3-16 by mouth ity of 21:28: daily. [place] Medical Branch promethazin 2020-0 Yes [id number] 5mL Take 5 mL Univers e-codeine 3-16 by mouth 4 ity of 6.25-10 21:28: (four) [place] mg/5 mL 56 times Medical syrup daily as Branch needed for Cough. metoprolol 2020-0 Yes [id number] 50mg Take 50 mg Univers tartrate 50 3-16 by mouth 2 it y of mg tablet 21:28: (two) [place] 56 times Medical daily. Branch albuterol 2020-0 Yes [id number] 2{puff} Inhale 2 Univers (VENTOLIN 3-16 Puffs ity of HFA) 90 21:28: every 6 [place] mcg/actuati 56 (six) Medical on inhaler hours as Branc h needed for Wheezing or Shortness of Breath. HYDROcodone 2020-0 Yes [id number] 1{tbl} Take 1 Univers -acetaminop 3-16 tablet by ity of hen 7.5-325 21:28: mouth [place] mg per 56 every 6 Medical tablet (six) Branch hours as needed for Pain. clonazePAM 2020-0 Yes [id number] 1mg Take 1 mg Univers 1 mg tablet 3-16 by mouth ity of 21:28: daily. [place] 56 Medical Branch promethazin 2020-0 Yes [id number] 5mL Take 5 mL Univers e-codeine 3-16 by mouth 4 ity of 6.25-10 21:28: (four) [place] mg/5 mL 56 times Medical syrup daily as Branch needed for Cough. metoprolol 2020-0 Yes [id number] 50mg Take 50 mg Univers tartrate 50 3-16 by mouth 2 it y of mg tablet 21:28: (two) [place] 56 times Medical daily. Branch albuterol 2020-0 Yes [id number] 2{puff} Inhale 2 Univers (VENTOLIN 3-16 Puffs ity of HFA) 90 21:28: every 6 [place] mcg/actuati 56 (six) Medical on inhaler hours as Branc h needed for Wheezing or Shortness of Breath. HYDROcodone 2020-0 Yes [id number] 1{tbl} Take 1 Univers -acetaminop 3-16 tablet by ity of hen 7.5-325 21:28: mouth [place] mg per 56 every 6 Medical tablet (six) Branch hours as needed for Pain. clonazePAM 2020-0 Yes [id number] 1mg Take 1 mg Univers 1 mg tablet 3-16 by mouth ity of 21:28: daily. [place] [address] Medical Branch promethazin 2020-0 Yes [id number] 5mL Take 5 mL Univers e-codeine 3-16 by mouth 4 ity of 6.25-10 21:28: (four) [place] mg/5 mL 56 times Medical syrup daily as Branch needed for Cough. metoprolol 2020-0 Yes [id number] 50mg Take 50 mg Univers tartrate 50 3-16 by mouth 2 it y of mg tablet 21:28: (two) [place] 56 times Medical daily. Branch albuterol 2020-0 Yes [id number] 2{puff} Inhale 2 Univers (VENTOLIN 3-16 Puffs ity of HFA) 90 21:28: every 6 [place] mcg/actuati 56 (six) Medical on inhaler hours as Branc h needed for Wheezing or Shortness of Breath. HYDROcodone 2020-0 Yes [id number] 1{tbl} Take 1 Univers -acetaminop 3-16 tablet by ity of hen 7.5-325 21:28: mouth [place] mg per 56 every 6 Medical tablet (six) Branch hours as needed for Pain. aspirin 81 2020-0 Yes [id number] 81mg Take 81 mg Univers mg EC 3-16 by mouth ity of tablet 16:28: daily. [address] aspirin 81 2020-0 Yes [id number] 81mg Take 81 mg Univers mg EC 3-16 by mouth ity of tablet 16:28: daily. [address] aspirin 81 2020-0 Yes [id number] 81mg Take 81 mg Univers mg EC 3-16 by mouth ity of tablet 16:28: daily. [address] aspirin 81 2020-0 Yes [id number] 81mg Take 81 mg Univers mg EC 3-16 by mouth ity of tablet 16:28: daily. [address] aspirin 81 2020-0 Yes [id number] 81mg Take 81 mg Univers mg EC 3-16 by mouth ity of tablet 16:28: daily. [address] aspirin 81 2020-0 Yes [id number] 81mg Take 81 mg Univers mg EC 3-16 by mouth ity of tablet 16:28: daily. [address] aspirin 81 2020-0 Yes [id number] 81mg Take 81 mg Univers mg EC 3-16 by mouth ity of tablet 16:28: daily. [address] aspirin 81 2020-0 Yes [id number] 81mg Take 81 mg Univers mg EC 3-16 by mouth ity of tablet 16:28: daily. [address] aspirin 81 2020-0 Yes [id number] 81mg Take 81 mg Univers mg EC 3-16 by mouth ity of tablet 16:28: daily. [address] aspirin 81 2020-0 Yes [id number] 81mg Take 81 mg Univers mg EC 3-16 by mouth ity of tablet 16:28: daily. [address] clonazePAM 2020-0 Yes [id number] 1mg Take 1 mg Univers 1 mg tablet 3-16 by mouth ity of 16:28: daily. [address] metoprolol 2020-0 Yes [id number] 50mg Take 50 mg Univers tartrate 50 3-16 by mouth 2 it y of mg tablet 16:28: (two) [place] 56 times Medical daily. Branch albuterol 2020-0 Yes [id number] 2{puff} Inhale 2 Univers (VENTOLIN 3-16 Puffs ity of HFA) 90 16:28: every 6 [place] mcg/actuati 56 (six) Medical on inhaler hours as Branc h needed for Wheezing or Shortness of Breath. HYDROcodone 2020-0 Yes [id number] 1{tbl} Take 1 Univers -acetaminop 3-16 tablet by ity of hen 7.5-325 16:28: mouth [place] mg per 56 every 6 Medical tablet (six) Branch hours as needed for Pain. clonazePAM 2020-0 Yes [id number] 1mg Take 1 mg Univers 1 mg tablet 3-16 by mouth ity of 16:28: daily. [address] metoprolol 2020-0 Yes [id number] 50mg Take 50 mg Univers tartrate 50 3-16 by mouth 2 it y of mg tablet 16:28: (two) [place] 56 times Medical daily. Branch albuterol 2020-0 Yes [id number] 2{puff} Inhale 2 Univers (VENTOLIN 3-16 Puffs ity of HFA) 90 16:28: every 6 [place] mcg/actuati 56 (six) Medical on inhaler hours as Branc h needed for Wheezing or Shortness of Breath. HYDROcodone 2020-0 Yes [id number] 1{tbl} Take 1 Univers -acetaminop 3-16 tablet by ity of hen 7.5-325 16:28: mouth [place] mg per 56 every 6 Medical tablet (six) Branch hours as needed for Pain. clonazePAM 2020-0 Yes [id number] 1mg Take 1 mg Univers 1 mg tablet 3-16 by mouth ity of 16:28: daily. [address] metoprolol 2020-0 Yes [id number] 50mg Take 50 mg Univers tartrate 50 3-16 by mouth 2 it y of mg tablet 16:28: (two) [place] 56 times Medical daily. Branch albuterol 2020-0 Yes [id number] 2{puff} Inhale 2 Univers (VENTOLIN 3-16 Puffs ity of HFA) 90 16:28: every 6 [place] mcg/actuati 56 (six) Medical on inhaler hours as Branc h needed for Wheezing or Shortness of Breath. HYDROcodone 2020-0 Yes [id number] 1{tbl} Take 1 [facility] -acetaminop 3-16 tablet by ity of hen 7.5-325 16:28: mouth [place] mg per 56 every 6 Medical tablet (six) Branch hours as needed for Pain. clonazePAM 2020-0 Yes [id number] 1mg Take 1 mg [facility] 1 mg tablet 3-16 by mouth ity of 16:28: daily. [place] 56 Medical Branch metoprolol 2020-0 Yes [id number] 50mg Take 50 mg [facility] tartrate 50 3-16 by mouth 2 it y of mg tablet 16:28: (two) [place] 56 times Medical daily. Branch albuterol 2020-0 Yes [id number] 2{puff} Inhale 2 [facility] (VENTOLIN 3-16 Puffs ity of HFA) 90 16:28: every 6 [place] mcg/actuati 56 (six) Medical on inhaler hours as Branc h needed for Wheezing or Shortness of Breath. HYDROcodone 2020-0 Yes [id number] 1{tbl} Take 1 [facility] -acetaminop 3-16 tablet by ity of hen 7.5-325 16:28: mouth [place] mg per 56 every 6 Medical tablet (six) Branch hours as needed for Pain. clonazePAM 2020-0 Yes [id number] 1mg Take 1 mg [facility] 1 mg tablet 3-16 by mouth ity of 16:28: daily. [address] metoprolol 2020-0 Yes [id number] 50mg Take 50 mg [facility] tartrate 50 3-16 by mouth 2 it y of mg tablet 16:28: (two) [place] 56 times Medical daily. Branch albuterol 2020-0 Yes [id number] 2{puff} Inhale 2 [facility] (VENTOLIN 3-16 Puffs ity of HFA) 90 16:28: every 6 [place] mcg/actuati 56 (six) Medical on inhaler hours as Branc h needed for Wheezing or Shortness of Breath. HYDROcodone 2020-0 Yes [id number] 1{tbl} Take 1 [facility] -acetaminop 3-16 tablet by ity of hen 7.5-325 16:28: mouth [place] mg per 56 every 6 Medical tablet (six) Branch hours as needed for Pain. clonazePAM 2020-0 Yes [id number] 1mg Take 1 mg [facility] 1 mg tablet 3-16 by mouth ity of 16:28: daily. [address] metoprolol 2020-0 Yes [id number] 50mg Take 50 mg [facility] tartrate 50 3-16 by mouth 2 it y of mg tablet 16:28: (two) [place] 56 times Medical daily. Branch albuterol 2020-0 Yes [id number] 2{puff} Inhale 2 [facility] (VENTOLIN 3-16 Puffs ity of HFA) 90 16:28: every 6 [place] mcg/actuati 56 (six) Medical on inhaler hours as Branc h needed for Wheezing or Shortness of Breath. HYDROcodone 2020-0 Yes [id number] 1{tbl} Take 1 [facility] -acetaminop 3-16 tablet by ity of hen 7.5-325 16:28: mouth [place] mg per 56 every 6 Medical tablet (six) Branch hours as needed for Pain. clonazePAM 2020-0 Yes [id number] 1mg Take 1 mg [facility] 1 mg tablet 3-16 by mouth ity of 16:28: daily. [address] Branch metoprolol 2020-0 Yes [id number] 50mg Take 50 mg [facility] tartrate 50 3-16 by mouth 2 it y of mg tablet 16:28: (two) [place] 56 times Medical daily. Branch albuterol 2020-0 Yes [id number] 2{puff} Inhale 2 [facility] (VENTOLIN 3-16 Puffs ity of HFA) 90 16:28: every 6 [place] mcg/actuati 56 (six) Medical on inhaler hours as Branc h needed for Wheezing or Shortness of Breath. HYDROcodone 2020-0 Yes [id number] 1{tbl} Take 1 [facility] -acetaminop 3-16 tablet by ity of hen 7.5-325 16:28: mouth [place] mg per 56 every 6 Medical tablet (six) Branch hours as needed for Pain. clonazePAM 2020-0 Yes [id number] 1mg Take 1 mg [facility] 1 mg tablet 3-16 by mouth ity of 16:28: daily. [address] metoprolol 2020-0 Yes [id number] 50mg Take 50 mg [facility] tartrate 50 3-16 by mouth 2 it y of mg tablet 16:28: (two) [place] 56 times Medical daily. Branch albuterol 2020-0 Yes [id number] 2{puff} Inhale 2 [facility] (VENTOLIN 3-16 Puffs ity of HFA) 90 16:28: every 6 [place] mcg/actuati 56 (six) Medical on inhaler hours as Branc h needed for Wheezing or Shortness of Breath. HYDROcodone 2020-0 Yes [id number] 1{tbl} Take 1 [facility] -acetaminop 3-16 tablet by ity of hen 7.5-325 16:28: mouth [place] mg per 56 every 6 Medical tablet (six) Branch hours as needed for Pain. clonazePAM 2020-0 Yes [id number] 1mg Take 1 mg [facility] 1 mg tablet 3-16 by mouth ity of 16:28: daily. [address] metoprolol 2020-0 Yes [id number] 50mg Take 50 mg [facility] tartrate 50 3-16 by mouth 2 it y of mg tablet 16:28: (two) [place] 56 times Medical daily. Branch albuterol 2020-0 Yes [id number] 2{puff} Inhale 2 [facility] (VENTOLIN 3-16 Puffs ity of HFA) 90 16:28: every 6 [place] mcg/actuati 56 (six) Medical on inhaler hours as Branc h needed for Wheezing or Shortness of Breath. HYDROcodone 2020-0 Yes [id number] 1{tbl} Take 1 [facility] -acetaminop 3-16 tablet by ity of hen 7.5-325 16:28: mouth [place] mg per 56 every 6 Medical tablet (six) Branch hours as needed for Pain. clonazePAM 2020-0 Yes [id number] 1mg Take 1 mg [facility] 1 mg tablet 3-16 by mouth ity of 16:28: daily. [address] metoprolol 2020-0 Yes [id number] 50mg Take 50 mg [facility] tartrate 50 3-16 by mouth 2 it y of mg tablet 16:28: (two) [place] 56 times Medical daily. Branch albuterol 2020-0 Yes [id number] 2{puff} Inhale 2 [facility] (VENTOLIN 3-16 Puffs ity of HFA) 90 16:28: every 6 [place] mcg/actuati 56 (six) Medical on inhaler hours as Branc h needed for Wheezing or Shortness of Breath. HYDROcodone 2020-0 Yes [id number] 1{tbl} Take 1 [facility] -acetaminop 3-16 tablet by ity of hen 7.5-325 16:28: mouth [place] mg per 56 every 6 Medical tablet (six) Branch hours as needed for Pain. cefTRIAXone 2019-0 2020- No 1000mg 1,000 mg, [facility] (ROCEPHIN) 3-07 03-06 Intramuscu it y of injection 00:30: 23:38 [...] Medical 12/16/19 at Branch 1830, CYNTHIA cefdinir 2019- No [id number] 300mg Take 1 [facility] 300 mg 12-16 capsule by ity of capsule 00:00: 04:59 mouth 2 [place] 00 :00 (two) Medical times Branch daily for 7 days. albuterol 2018-10 Yes [id number] 2.5mg Inhale 3 [facility] 2.5 mg /3 2-12 mL every 4 ity of mL (0.083 00:00: (four) [place] %) 00 hours as Medical nebulizer needed for Bran ch solution Wheezing or Shortness of Breath. ibuprofen 2018-10 Yes [id number] 600mg Take 1 [facility] 600 mg 2-12 tablet by ity of tablet 00:00: mouth [place] 00 every 6 Medical (six) Branch hours as needed for Pain (scale 4-6). benzonatate 2018-10 Yes [id number] 100mg Take 1 [facility] 100 mg 2-12 capsule by ity of capsule 00:00: mouth 3 [place] 00 (three) Medical times Branch daily as needed for Cough. methylPREDN 2018- Yes [id number] Take by [facility] ISolone 2-12 mouth ity of (MEDROL, 00:00: SEE-INSTRU Good as ROSALINDA,) 4 mg 00 CTIONS. Medica l tablets follow Branch package directions albuterol 2018-10 Yes [id number] 2{puff} Inhale 2 [facility] (PROAIR 2-12 Puffs ity of HFA) 90 00:00: every 6 [place] mcg/actuati 00 (six) Medical on inhaler hours as Branc h needed for Wheezing or Shortness of Breath. albuterol 2018-10 Yes [id number] 2.5mg Inhale 3 [facility] 2.5 mg /3 2-12 mL every 4 ity of mL (0.083 00:00: (four) [place] %) 00 hours as Medical nebulizer needed for Bran ch solution Wheezing or Shortness of Breath. ibuprofen 2018-10 Yes [id number] 600mg Take 1 [facility] 600 mg 2-12 tablet by ity of tablet 00:00: mouth [place] 00 every 6 Medical (six) Branch hours as needed for Pain (scale 4-6). benzonatate 2018-10 Yes [id number] 100mg Take 1 [facility] 100 mg 2-12 capsule by ity of capsule 00:00: mouth 3 [place] 00 (three) Medical times Branch daily as needed for Cough. methylPREDN 2018-10 Yes [id number] Take by [facility] ISolone 2-12 mouth ity of (MEDROL, 00:00: SEE-INSTRU Good as ROS[place]IN[place],) 4 mg 00 CTIONS. Medica l tablets follow Branch package directions albuterol 2018-10 Yes [id number] 2{puff} Inhale 2 [facility] (PROAIR 2-12 Puffs ity of HFA) 90 00:00: every 6 [place] mcg/actuati 00 (six) Medical on inhaler hours as Branc h needed for Wheezing or Shortness of Breath. albuterol 2018-10 Yes [id number] 2.5mg Inhale 3 [facility] 2.5 mg /3 2-12 mL every 4 ity of mL (0.083 00:00: (four) [place] %) 00 hours as Medical nebulizer needed for Bran ch solution Wheezing or Shortness of Breath. ibuprofen 2018-10 Yes [id number] 600mg Take 1 [facility] 600 mg 2-12 tablet by ity of tablet 00:00: mouth [place] 00 every 6 Medical (six) Branch hours as needed for Pain (scale 4-6). benzonatate 2018-10 Yes [id number] 100mg Take 1 [facility] 100 mg 2-12 capsule by ity of capsule 00:00: mouth 3 [place] 00 (three) Medical times Branch daily as needed for Cough. methylPREDN 2018-10 Yes [id number] Take by [facility] ISolone 2-12 mouth ity of (MEDROL, 00:00: SEE-INSTRU Good as [place],) 4 mg 00 CTIONS. Medica l tablets follow Branch package directions albuterol 2018-10 Yes [id number] 2{puff} Inhale 2 [facility] (PROAIR 2-12 Puffs ity of HFA) 90 00:00: every 6 [place] mcg/actuati 00 (six) Medical on inhaler hours as Branc h needed for Wheezing or Shortness of Breath. albuterol 2018-10 Yes [id number] 2.5mg Inhale 3 [facility] 2.5 mg /3 2-12 mL every 4 ity of mL (0.083 00:00: (four) [place] %) 00 hours as Medical nebulizer needed for Bran ch solution Wheezing or Shortness of Breath. ibuprofen 2018-10 Yes [id number] 600mg Take 1 [facility] 600 mg 2-12 tablet by ity of tablet 00:00: mouth [place] 00 every 6 Medical (six) Branch hours as needed for Pain (scale 4-6). benzonatate 2018-10 Yes [id number] 100mg Take 1 [facility] 100 mg 2-12 capsule by ity of capsule 00:00: mouth 3 [place] 00 (three) Medical times Branch daily as needed for Cough. methylPREDN 2018-10 Yes [id number] Take by [facility] ISolone 2-12 mouth ity of (MEDROL, 00:00: SEE-INSTRU Good as [place],) 4 mg 00 CTIONS. Medica l tablets follow Branch package directions albuterol 2018-10 Yes [id number] 2{puff} Inhale 2 [facility] (PROAIR 2-12 Puffs ity of HFA) 90 00:00: every 6 [place] mcg/actuati 00 (six) Medical on inhaler hours as Branc h needed for Wheezing or Shortness of Breath. albuterol 2018-10 Yes [id number] 2.5mg Inhale 3 [facility] 2.5 mg /3 2-12 mL every 4 ity of mL (0.083 00:00: (four) [place] %) 00 hours as Medical nebulizer needed for Bran ch solution Wheezing or Shortness of Breath. ibuprofen 2018-10 Yes [id number] 600mg Take 1 [facility] 600 mg 2-12 tablet by ity of tablet 00:00: mouth [place] 00 every 6 Medical (six) Branch hours as needed for Pain (scale 4-6). benzonatate 2018-10 Yes [id number] 100mg Take 1 [facility] 100 mg 2-12 capsule by ity of capsule 00:00: mouth 3 [place] 00 (three) Medical times Branch daily as needed for Cough. methylPREDN 2018-10 Yes [id number] Take by [facility] ISolone 2-12 mouth ity of (MEDROL, 00:00: SEE-INSTRU Good as [place],) 4 mg 00 CTIONS. Medica l tablets follow Branch package directions albuterol 2018-10 Yes [id number] 2{puff} Inhale 2 [facility] (PROAIR 2-12 Puffs ity of HFA) 90 00:00: every 6 [place] mcg/actuati 00 (six) Medical on inhaler hours as Branc h needed for Wheezing or Shortness of Breath. albuterol 2018-10 Yes [id number] 2.5mg Inhale 3 [facility] 2.5 mg /3 2-12 mL every 4 ity of mL (0.083 00:00: (four) [place] %) 00 hours as Medical nebulizer needed for Bran ch solution Wheezing or Shortness of Breath. ibuprofen 2018-10 Yes [id number] 600mg Take 1 [facility] 600 mg 2-12 tablet by ity of tablet 00:00: mouth [place] 00 every 6 Medical (six) Branch hours as needed for Pain (scale 4-6). benzonatate 2018-10 Yes [id number] 100mg Take 1 [facility] 100 mg 2-12 capsule by ity of capsule 00:00: mouth 3 [place] 00 (three) Medical times Branch daily as needed for Cough. methylPREDN 2018-10 Yes [id number] Take by [facility] ISolone 2-12 mouth ity of (MEDROL, 00:00: SEE-INSTRU Good as [place],) 4 mg 00 CTIONS. Medica l tablets follow Branch package directions albuterol 2018-10 Yes [id number] 2{puff} Inhale 2 [facility] (PROAIR 2-12 Puffs ity of HFA) 90 00:00: every 6 [place] mcg/actuati 00 (six) Medical on inhaler hours as Branc h needed for Wheezing or Shortness of Breath. albuterol 2018-10 Yes [id number] 2.5mg Inhale 3 [facility] 2.5 mg /3 2-12 mL every 4 ity of mL (0.083 00:00: (four) [place] %) 00 hours as Medical nebulizer needed for Bran ch solution Wheezing or Shortness of Breath. ibuprofen 2018-10 Yes [id number] 600mg Take 1 [facility] 600 mg 2-12 tablet by ity of tablet 00:00: mouth [place] 00 every 6 Medical (six) Branch hours as needed for Pain (scale 4-6). benzonatate 2018-10 Yes [id number] 100mg Take 1 [facility] 100 mg 2-12 capsule by ity of capsule 00:00: mouth 3 [place] 00 (three) Medical times Branch daily as needed for Cough. methylPREDN 2018-10 Yes [id number] Take by [facility] ISolone 2-12 mouth ity of (MEDROL, 00:00: SEE-INSTRU Good as [place],) 4 mg 00 CTIONS. Medica l tablets follow Branch package directions albuterol 2018-10 Yes [id number] 2{puff} Inhale 2 [facility] (PROAIR 2-12 Puffs ity of HFA) 90 00:00: every 6 [place] mcg/actuati 00 (six) Medical on inhaler hours as Branc h needed for Wheezing or Shortness of Breath. albuterol 2018-10 Yes [id number] 2.5mg Inhale 3 [facility] 2.5 mg /3 2-12 mL every 4 ity of mL (0.083 00:00: (four) [place] %) 00 hours as Medical nebulizer needed for Bran ch solution Wheezing or Shortness of Breath. ibuprofen 2018-10 Yes [id number] 600mg Take 1 [facility] 600 mg 2-12 tablet by ity of tablet 00:00: mouth [place] 00 every 6 Medical (six) Branch hours as needed for Pain (scale 4-6). benzonatate 2018-10 Yes [id number] 100mg Take 1 [facility] 100 mg 2-12 capsule by ity of capsule 00:00: mouth 3 [place] 00 (three) Medical times Branch daily as needed for Cough. methylPREDN 2018-10 Yes [id number] Take by [facility] ISolone 2-12 mouth ity of (MEDROL, 00:00: SEE-INSTRU [place] as [place],) 4 mg 00 CTIONS. Medica l tablets follow Branch package directions albuterol 2018-10 Yes [id number] 2{puff} Inhale 2 [facility] (PROAIR 2-12 Puffs ity of HFA) 90 00:00: every 6 [place] mcg/actuati 00 (six) Medical on inhaler hours as Branc h needed for Wheezing or Shortness of Breath. albuterol 2018-10 Yes [id number] 2.5mg Inhale 3 [facility] 2.5 mg /3 2-12 mL every 4 ity of mL (0.083 00:00: (four) [place] %) 00 hours as Medical nebulizer needed for Bran ch solution Wheezing or Shortness of Breath. albuterol 2018-10 Yes [id number] 2{puff} Inhale 2 [facility] (PROAIR 2-12 Puffs ity of HFA) 90 00:00: every 6 [place] mcg/actuati 00 (six) Medical on inhaler hours as Branc h needed for Wheezing or Shortness of Breath. albuterol 2018-10 Yes [id number] 2.5mg Inhale 3 [facility] 2.5 mg /3 2-12 mL every 4 ity of mL (0.083 00:00: (four) [place] %) 00 hours as Medical nebulizer needed for Bran ch solution Wheezing or Shortness of Breath. albuterol 2018-10 Yes [id number] 2{puff} Inhale 2 [facility] (PROAIR 2-12 Puffs ity of HFA) 90 00:00: every 6 [place] mcg/actuati 00 (six) Medical on inhaler hours as Branc h needed for Wheezing or Shortness of Breath. albuterol 2018-10 Yes [id number] 2.5mg Inhale 3 [facility] 2.5 mg /3 2-12 mL every 4 ity of mL (0.083 00:00: (four) [place] %) 00 hours as Medical nebulizer needed for Bran ch solution Wheezing or Shortness of Breath. albuterol 2018-10 Yes [id number] 2{puff} Inhale 2 [facility] (PROAIR 2-12 Puffs ity of HFA) 90 00:00: every 6 [place] mcg/actuati 00 (six) Medical on inhaler hours as Branc h needed for Wheezing or Shortness of Breath. albuterol 2018-10 Yes [id number] 2.5mg Inhale 3 [facility] 2.5 mg /3 2-12 mL every 4 ity of mL (0.083 00:00: (four) [place] %) 00 hours as Medical nebulizer needed for Bran ch solution Wheezing or Shortness of Breath. albuterol 2018-10 Yes [id number] 2{puff} Inhale 2 [facility] (PROAIR 2-12 Puffs ity of HFA) 90 00:00: every 6 [place] mcg/actuati 00 (six) Medical on inhaler hours as Branc h needed for Wheezing or Shortness of Breath. albuterol 2018-10 Yes [id number] 2.5mg Inhale 3 [facility] 2.5 mg /3 2-12 mL every 4 ity of mL (0.083 00:00: (four) [place] %) 00 hours as Medical nebulizer needed for Bran ch solution Wheezing or Shortness of Breath. albuterol 2018-10 Yes [id number] 2{puff} Inhale 2 [facility] (PROAIR 2-12 Puffs ity of HFA) 90 00:00: every 6 [place] mcg/actuati 00 (six) Medical on inhaler hours as Branc h needed for Wheezing or Shortness of Breath. albuterol 2018-10 Yes [id number] 2.5mg Inhale 3 [facility] 2.5 mg /3 2-12 mL every 4 ity of mL (0.083 00:00: (four) [place] %) 00 hours as Medical nebulizer needed for Bran ch solution Wheezing or Shortness of Breath. albuterol 2018-10 Yes [id number] 2{puff} Inhale 2 [facility] (PROAIR 2-12 Puffs ity of HFA) 90 00:00: every 6 [place] mcg/actuati 00 (six) Medical on inhaler hours as Branc h needed for Wheezing or Shortness of Breath. albuterol 2018-10 Yes [id number] 2.5mg Inhale 3 [facility] 2.5 mg /3 2-12 mL every 4 ity of mL (0.083 00:00: (four) [place] %) 00 hours as Medical nebulizer needed for Bran ch solution Wheezing or Shortness of Breath. albuterol 2018-10 Yes [id number] 2{puff} Inhale 2 [facility] (PROAIR 2-12 Puffs ity of HFA) 90 00:00: every 6 [place] mcg/actuati 00 (six) Medical on inhaler hours as Branc h needed for Wheezing or Shortness of Breath. albuterol 2018-10 Yes [id number] 2.5mg Inhale 3 [facility] 2.5 mg /3 2-12 mL every 4 ity of mL (0.083 00:00: (four) [place] %) 00 hours as Medical nebulizer needed for Bran ch solution Wheezing or Shortness of Breath. albuterol 2018-10 Yes [id number] 2{puff} Inhale 2 [facility] (PROAIR 2-12 Puffs ity of HFA) 90 00:00: every 6 [place] mcg/actuati 00 (six) Medical on inhaler hours as Branc h needed for Wheezing or Shortness of Breath. albuterol 2018-10 Yes [id number] 2.5mg Inhale 3 [facility] 2.5 mg /3 2-12 mL every 4 ity of mL (0.083 00:00: (four) [place] %) 00 hours as Medical nebulizer needed for Bran ch solution Wheezing or Shortness of Breath. albuterol 2018-10 Yes [id number] 2{puff} Inhale 2 [facility] (PROAIR 2-12 Puffs ity of HFA) 90 00:00: every 6 [place] mcg/actuati 00 (six) Medical on inhaler hours as Branc h needed for Wheezing or Shortness of Breath. albuterol 2018-10 Yes [id number] 2.5mg Inhale 3 [facility] 2.5 mg /3 2-12 mL every 4 ity of mL (0.083 00:00: (four) [place] %) 00 hours as Medical nebulizer needed for Bran ch solution Wheezing or Shortness of Breath. albuterol 2018-10 Yes [id number] 2{puff} Inhale 2 [facility] (PROAIR 2-12 Puffs ity of HFA) 90 00:00: every 6 [place] mcg/actuati 00 (six) Medical on inhaler hours as Branc h needed for Wheezing or Shortness of Breath. albuterol 2018-10 Yes [id number] 2.5mg Inhale 3 [facility] 2.5 mg /3 2-12 mL every 4 ity of mL (0.083 00:00: (four) [place] %) 00 hours as Medical nebulizer needed for Bran ch solution Wheezing or Shortness of Breath. ibuprofen 2018-10 Yes [id number] 600mg Take 1 [facility] 600 mg 2-12 tablet by ity of tablet 00:00: mouth [place] 00 every 6 Medical (six) Branch hours as needed for Pain (scale 4-6). benzonatate 2018-10 Yes [id number] 100mg Take 1 [facility] 100 mg 2-12 capsule by ity of capsule 00:00: mouth 3 [place] 00 (three) Medical times Branch daily as needed for Cough. methylPREDN 2018-10 Yes [id number] Take by [facility] ISolone 2-12 mouth ity of (MEDROL, 00:00: SEE-INSTRU Good [place],) 4 mg 00 CTIONS. Medica l tablets follow Branch package directions albuterol 2018-10 Yes [id number] 2{puff} Inhale 2 [facility] (PROAIR 2-12 Puffs ity of HFA) 90 00:00: every 6 [place] mcg/actuati 00 (six) Medical on inhaler hours as Branc h needed for Wheezing or Shortness of Breath. ibuprofen 2018-10- No [id number] 600mg Take 1 [facility] 600 mg 2-12 12-29 tablet by ity of tablet 00:00: 00:00 mouth [place] 00 :00 every 6 Medical (six) Branch hours as needed for Pain (scale 4-6). benzonatate 2018-10- No [id number] 100mg Take 1 [facility] 100 mg 2-12 12-29 capsule by ity of capsule 00:00: 00:00 mouth 3 [place] 00 :00 (three) Medical times Branch daily as needed for Cough. methylPREDN 2018-10- No [id number] Take by [facility] ISolone 2-12 12-29 mouth ity of (MEDROL, 00:00: 00:00 SEE-INSTRU [place] ROSALINDA,) 4 mg 00 :00 CTIONS. Medica l tablets follow Branch package directions LISINOPRIL 2018-10 Yes [id number] TAKE 1 [facility] 20 mg 2-05 TABLET BY ity of tablet 00:00: MOUTH [place] 00 TWICE Medical DAILY Branch LISINOPRIL 2018-10 Yes [id number] TAKE 1 [facility] 20 mg 2-05 TABLET BY ity of tablet 00:00: MOUTH [place] 00 TWICE Medical DAILY Branch LISINOPRIL 2018-10 Yes [id number] TAKE 1 [facility] 20 mg 2-05 TABLET BY ity of tablet 00:00: MOUTH [place] 00 TWICE Medical DAILY Branch LISINOPRIL 2018- Yes [id number] TAKE 1 [facility] 20 mg 2-05 TABLET BY ity of tablet 00:00: MOUTH TWICE Medical DAILY Branch LISINOPRIL 2019- Yes [id number] TAKE 1 [facility] 20 mg 2-05 TABLET BY ity of tablet 00:00: MOUTH TWICE Medical DAILY Branch LISINOPRIL 2019- Yes [id number] TAKE 1 [facility] 20 mg 2-05 TABLET BY ity of tablet 00:00: MOUTH TWICE Medical DAILY Branch LISINOPRIL 2019- Yes [id number] TAKE 1 [facility] 20 mg 2-05 TABLET BY ity of tablet 00:00: MOUTH TWICE Medical DAILY Branch LISINOPRIL 2019- Yes [id number] TAKE 1 [facility] 20 mg 2-05 TABLET BY ity of tablet 00:00: MOUTH TWICE Medical DAILY Branch LISINOPRIL 2019- Yes [id number] TAKE 1 [facility] 20 mg 2-05 TABLET BY ity of tablet 00:00: MOUTH TWICE Medical DAILY Branch LISINOPRIL 2019- Yes [id number] TAKE 1 [facility] 20 mg 2-05 TABLET BY ity of tablet 00:00: MOUTH TWICE Medical DAILY Branch LISINOPRIL 2019- Yes [id number] TAKE 1 [facility] 20 mg 2-05 TABLET BY ity of tablet 00:00: MOUTH TWICE Medical DAILY Branch LISINOPRIL 2019- Yes [id number] TAKE 1 [facility] 20 mg 2-05 TABLET BY ity of tablet 00:00: MOUTH TWICE Medical DAILY Branch LISINOPRIL 2019- Yes [id number] TAKE 1 [facility] 20 mg 2-05 TABLET BY ity of tablet 00:00: MOUTH TWICE Medical DAILY Branch LISINOPRIL 2019- Yes [id number] TAKE 1 [facility] 20 mg 2-05 TABLET BY ity of tablet 00:00: MOUTH TWICE Medical DAILY Branch LISINOPRIL 2019- Yes [id number] TAKE 1 [facility] 20 mg 2-05 TABLET BY ity of tablet 00:00: MOUTH TWICE Medical DAILY Branch LISINOPRIL 2019- Yes [id number] TAKE 1 [facility] 20 mg 2-05 TABLET BY ity of tablet 00:00: MOUTH TWICE Medical DAILY Branch LISINOPRIL 2019- Yes [id number] TAKE 1 [facility] 20 mg 2-05 TABLET BY ity of tablet 00:00: MOUTH TWICE Medical DAILY Branch LISINOPRIL 2019- Yes [id number] TAKE 1 [facility] 20 mg 2-05 TABLET BY ity of tablet 00:00: MOUTH TWICE Medical DAILY Branch LISINOPRIL 2019- Yes [id number] TAKE 1 [facility] 20 mg 2-05 TABLET BY ity of tablet 00:00: MOUTH TWICE Medical DAILY Branch atorvastati 2018-0 Yes [id number] 80mg Take 1 [facility] n 80 mg 6-26 tablet by ity of tablet 00:00: mouth at [place] [address] bedtime. Medical Branch atorvastati 0 Yes [id number] 80mg Take 1 [facility] n 80 mg 6-26 tablet by ity of tablet 00:00: mouth at [place] [address] bedtime. Medical Branch atorvastati Yes [id number] 80mg Take 1 [facility] n 80 mg 6-26 tablet by ity of tablet 00:00: mouth at [place] [address] bedtime. Medical Branch atorvastati Yes [id number] 80mg Take 1 [facility] n 80 mg 6-26 tablet by ity of tablet 00:00: mouth at [place] [address] bedtime. Medical Branch atorvastati Yes [id number] 80mg Take 1 [facility] n 80 mg 6-26 tablet by ity of tablet 00:00: mouth at [place] [address] bedtime. Medical Branch atorvastati 0 Yes [id number] 80mg Take 1 [facility] n 80 mg 6-26 tablet by ity of tablet 00:00: mouth at [place] [address] bedtime. Medical Branch atorvastati 2018-0 Yes [id number] 80mg Take 1 [facility] n 80 mg 6-26 tablet by ity of tablet 00:00: mouth at [place] [address] bedtime. Medical Branch atorvastati 2018-0 Yes [id number] 80mg Take 1 [facility] n 80 mg 6-26 tablet by ity of tablet 00:00: mouth at [place] [address] bedtime. Medical Branch atorvastati 2018-0 Yes [id number] 80mg Take 1 [facility] n 80 mg 6-26 tablet by ity of tablet 00:00: mouth at [place] [address] bedtime. Medical Branch atorvastati 2018-0 Yes [id number] 80mg Take 1 [facility] n 80 mg 6-26 tablet by ity of tablet 00:00: mouth at [place] [address] bedtime. Medical Branch atorvastati 2018- Yes [id number] 80mg Take 1 [facility] n 80 mg 6-26 tablet by ity of tablet 00:00: mouth at [place] 00 bedtime. Medical Branch atorvastati Yes [id number] 80mg Take 1 [facility] n 80 mg 6-26 tablet by ity of tablet 00:00: mouth at [place] 00 bedtime. Medical Branch atorvastati Yes [id number] 80mg Take 1 [facility] n 80 mg 6-26 tablet by ity of tablet 00:00: mouth at [place] 00 bedtime. Medical Branch atorvastati Yes [id number] 80mg Take 1 [facility] n 80 mg 6-26 tablet by ity of tablet 00:00: mouth at [place] 00 bedtime. Medical Branch atorvastati Yes [id number] 80mg Take 1 [facility] n 80 mg 6-26 tablet by ity of tablet 00:00: mouth at [place] bedtime. Medical Branch atorvastati Yes [id number] 80mg Take 1 [facility] n 80 mg 6-26 tablet by ity of tablet 00:00: mouth at [place] bedtime. Medical Branch atorvastati Yes [id number] 80mg Take 1 [facility] n 80 mg 6-26 tablet by ity of tablet 00:00: mouth at [place] bedtime. Medical Branch atorvastati Yes [id number] 80mg Take 1 [facility] n 80 mg 6-26 tablet by ity of tablet 00:00: mouth at [place] 00 bedtime. Medical Branch atorvastati Yes [id number] 80mg Take 1 [facility] n 80 mg 6-26 tablet by ity of tablet 00:00: mouth at [place] 00 bedtime. Medical Branch lisinopril Yes 20mg [...] [place] tablet 00 daily. Medical Branch lisinopril 2018-0 Yes 20mg Take 1 [facility] (ZESTRIL) [...] mouth [place] tablet 00 daily. [facility] atorvastati 0 Yes [id number] 80mg Take 80 mg [facility] n 80 mg 2-25 by mouth ity of tablet 00:00: daily. [facility] atorvastati 0 Yes [id number] 80mg Take 80 mg Univers n 80 mg 2-25 by mouth ity of tablet 00:00: daily. [facility] atorvastati 0 Yes [id number] 80mg Take 80 mg Univers n 80 mg 2-25 by mouth ity of tablet 00:00: daily. [facility] atorvastati 0 Yes [id number] 80mg Take 80 mg Univers n 80 mg 2-25 by mouth ity of tablet 00:00: daily. [facility] atorvastati 0 Yes [id number] 80mg Take 80 mg Univers n 80 mg 2-25 by mouth ity of tablet 00:00: daily. [facility] atorvastati 0 Yes [id number] 80mg Take 80 mg Univers n 80 mg 2-25 by mouth ity of tablet 00:00: daily. [facility] atorvastati 0 Yes [id number] 80mg Take 80 mg Univers n 80 mg 2-25 by mouth ity of tablet 00:00: daily. [facility] atorvastati 2018-0 Yes [id number] 80mg Take 80 mg Univers n 80 mg 2-25 by mouth ity of tablet 00:00: daily. [facility] atorvastati Yes [id number] 80mg Take 80 mg Univers n 80 mg 2-25 by mouth ity of tablet 00:00: daily. [facility] atorvastati Yes [id number] 80mg Take 80 mg Univers n 80 mg 2-25 by mouth ity of tablet 00:00: daily. [facility] atorvastati Yes [id number] 80mg Take 80 mg Univers n 80 mg 2-25 by mouth ity of tablet 00:00: daily. [facility] atorvastati Yes [id number] 80mg Take 80 mg Univers n 80 mg 2-25 by mouth ity of tablet 00:00: daily. [facility] atorvastati Yes [id number] 80mg Take 80 mg Univers n 80 mg 2-25 by mouth ity of tablet 00:00: daily. [facility] atorvastati Yes [id number] 80mg Take 80 mg Univers n 80 mg 2-25 by mouth ity of tablet 00:00: daily. [facility] atorvastati Yes [id number] 80mg Take 80 mg Univers n 80 mg 2-25 by mouth ity of tablet 00:00: daily. [facility] atorvastati Yes [id number] 80mg Take 80 mg Univers n 80 mg 2-25 by mouth ity of tablet 00:00: daily. [facility] atorvastati Yes [id number] 80mg Take 80 mg Univers n 80 mg 2-25 by mouth ity of tablet 00:00: daily. [facility] atorvastati Yes [id number] 80mg Take 80 mg Univers n 80 mg 2-25 by mouth ity of tablet 00:00: daily. [facility] atorvastati Yes [id number] 80mg Take 80 mg Univers n 80 mg 2-25 by mouth ity of tablet 00:00: daily. [address] POLYETHYLEN No Notes: Andrew rae E GLYCOL 3-04 Dissolve l 3350 15:00: in 8 oz of [place] 00 water or juice. (Same as: Miralax) Streptococc No Notes: Andrew rae us 3-04 Lightly l pneumoniae 15:00: roll vial He rmann serotype 1 00 (DO NOT capsular SHAKE) antigen before diphtheria administra [id number] tion. protein (Same as: conjugate Prevnar vaccine / 13) Streptococc us pneumoniae serotype 14 capsular antigen diphtheria [id number] protein conjugate vaccine / Streptococc us pneumoniae serotype 18C capsular antigen d POLYETHYLEN No Notes: Andrew rae E GLYCOL 3-04 Dissolve l 3350 15:00: in 8 oz of [place] 00 water or juice. (Same as: Miralax) Streptococc No Notes: Andrew rae us 3-04 Lightly l pneumoniae 15:00: roll vial He rmann serotype 1 00 (DO NOT capsular SHAKE) antigen before diphtheria administra [id number] tion. protein (Same as: conjugate Prevnar vaccine / 13) Streptococc us pneumoniae serotype 14 capsular antigen diphtheria [id number] protein conjugate vaccine / Streptococc us pneumoniae serotype 18C capsular antigen d POLYETHYLEN No Notes: Andrew rae E GLYCOL 3-04 Dissolve l 3350 15:00: in 8 oz of [place] 00 water or juice. (Same as: Miralax) Streptococc No Notes: Andrew rae us 3-04 Lightly l pneumoniae 15:00: roll vial He rmann serotype 1 00 (DO NOT capsular SHAKE) antigen before diphtheria administra [id number] tion. protein (Same as: conjugate Prevnar vaccine / 13) Streptococc us pneumoniae serotype 14 capsular antigen diphtheria [id number] protein conjugate vaccine / Streptococc us pneumoniae [...] Notes: Memoria 3-04 Chlorasept l 05:02: ic [place] 00 (Same as: Chlorasept ic, Sore Throat [place]) WASTE: F/P - Black; E - Municipal Trash Bin phenol No Notes: [facility] 3-04 Chlorasept l 05:02: ic [place] 00 (Same as: Chlorasept ic, Sore Throat [place]) WASTE: F/P - Black; E - Municipal Trash Bin phenol No Notes: [facility]oria 3-04 Chlorasept l 05:02: ic [place] 00 (Same as: Chlorasept ic, Sore Throat [place]) WASTE: F/P - Black; E - Municipal Trash Bin Saline No Notes: [facility] Flush 0.9% 3-04 (Same as: l 03:00: BD [place] 00 Posiflush) Docusate No Notes: Memoria 3-04 (Same as: l 03:00: Colace) [place] 00 (Do Not Crush) Famotidine No Notes: Memor ia 3-04 (Same as: l 03:00: Pepcid) [place] Can be dilute in 5-10cc NS IVP: Slow IV push over at least 2 minutes. sennosides, No Notes: Andrew rae CARE HOME 3-04 (Same as: l 03:00: Senokot) [place] 00 Saline No Notes: [facility] Flush 0.9% 3-04 (Same as: l 03:00: BD [place] 00 Posiflush) Docusate No Notes: Memoria 3-04 (Same as: l 03:00: Colace) [place] 00 (Do Not Crush) Famotidine No Notes: Memor ia 3-04 (Same as: l 03:00: Pepcid) [place] 00 Can be dilute in 5-10cc NS IVP: Slow IV push over at least 2 minutes. sennosides, No Notes: Andrew rae CARE HOME 3-04 (Same as: l 03:00: Senokot) [place] 00 Saline No Notes: [facility] Flush 0.9% 3-04 (Same as: l 03:00: BD [place] 00 Posiflush) Docusate No Notes: Memoria 3-04 (Same as: l 03:00: Colace) [place] 00 (Do Not Crush) Famotidine No Notes: Memor ia 3-04 (Same as: l 03:00: Pepcid) [place] 00 Can be dilute in 5-10cc NS IVP: Slow IV push over at least 2 minutes. sennosides, No Notes: Andrew rae CARE HOME 3-04 (Same as: l 03:00: Senokot) [place] 00 ceFAZolin No Notes: Memori a (SCIP) + 3-04 (Same As: l sodium 01:30: Ancef, [place] chloride 00 Kefzol) 0.9% INJ 100 mL MEDICATION WASTE Product Size: 1000 mg Product Wasted: ___ mg ceFAZolin No Notes: Memori a (SCIP) + 3-04 (Same As: l sodium 01:30: Ancef, [place] chloride 00 Kefzol) 0.9% INJ 100 mL MEDICATION WASTE Product Size: 1000 mg Product Wasted: ___ mg ceFAZolin No Notes: Memori a (SCIP) + 3-04 (Same As: l sodium 01:30: Ancef, [place] chloride 00 Kefzol) 0.9% INJ 100 mL MEDICATION WASTE Product Size: 1000 mg Product Wasted: ___ mg Metoclopram No Notes: Andrew rae zainab 3-04 (Same as: l 00:00: Reglan) [place] 00 Dexamethaso No Notes: Andrew rae ne 3- Concentrat l 00:00: ion: [place] 00 4mg/ml Metoclopram No Notes: Andrew rae zainab 3-04 (Same as: l 00:00: Reglan) [place] Dexamethaso No Notes: Andrew rae ne 3- Concentrat l 00:00: ion: [place] 00 4mg/ml Metoclopram No Notes: Andrew rae zainab 3-04 (Same as: l 00:00: Reglan) [place] 00 Dexamethaso No Notes: Andrew rae ne 3- Concentrat l 00:00: ion: [place] 00 4mg/ml Cefazolin No Notes: Memori a 3-03 (Same As: l 22:00: Ancef, [place] 00 Kefzol) MEDICATION WASTE Product Size: 1000 mg Product Wasted: ___ mg Cefazolin No Notes: Memori a - (Same As: l 22:00: Ancef, [place] 00 Kefzol) MEDICATION WASTE Product Size: 1000 mg Product Wasted: ___ mg Cefazolin No Notes: Memori a 3-03 (Same As: l 22:00: Ancef, [place] 00 Kefzol) MEDICATION WASTE Product Size: 1000 mg Product Wasted: ___ mg Robaxin No Notes: [facility]oria 3-03 (Same l 21:42: as:Robaxin [place] ) Robaxin No Notes: [facility] 3-03 (Same l 21:42: as:Robaxin [place] ) Robaxin No Notes: [facility]oria 3-03 (Same l 21:42: as:Robaxin [place] 00 ) Regular No 60 units) Andrew rae Insulin, - WASTE: F/P l Human 100 21:41: - Black; E He rmann UNT/ML 00 - Injectable Municipal Solution Trash Bin Stable for 28 days at room temperatur e Expires in days from ____Date Dextrose No 6.25 gm, Memor ia 50% Syringe 12-12 12.5 mL, l 21:41: Route: [place] 00 IVP, Drug Form: INJ, Dosing Weight 81.818, kg, PRN, PRN Abnormal Lab Result, Start date: 12/12/16 15:41:00 SILL WORKER, Duration: 30 day, Stop date: 01/11/17 16:40:00 CDT Saline No Notes: [facility] Flush 0.9% 12-12 (Same as: l 21:41: BD Posiflush) Bisacodyl No Notes: Memori a - (Same As: l 21:41: Dulcolax, Bisco-Lax) Ondansetron No Notes: Andrew rae 12-12 (Same as: l 21:41: Zofran) MEDICATION WASTE Product Size: 4 mg Product Wasted: ___ mg Acetaminoph No Notes: Do M emoria en 325 MG / 12-12 not exceed l Hydrocodone 21:41: 4gm/day of [place] Bitartrate 00 acetaminop 10 MG Oral hen. (Same Tablet as: [place] 325/10) Tramadol No Notes: Not Mem oria 12-12 to exceed l 21:41: 400mg/day. [place] (Same As: Ultram) Hydromorpho No Notes: Andrew rae ne 12-12 Same as: l 21:41: Dilaudid Regular No 60 units) Andrew rae Insulin, 12-12 WASTE: F/P l Human 100 21:41: - Black; E He r[place] UNT/ML 00 - Injectable Municipal Solution Trash Bin Stable for 28 days at room temperatur e Expires in days from ____Date Dextrose No 6.25 gm, Memor ia 50% Syringe 12-12 12.5 mL, l 21:41: Route: [place] 00 IVP, Drug Form: INJ, Dosing Weight 81.818, kg, PRN, PRN Abnormal Lab Result, Start date: 12/12/16 15:41:00 SILL WORKER, Duration: 30 day, Stop date: 01/11/17 16:40:00 CDT Saline No Notes: [facility] Flush 0.9% 3-03 (Same as: l 21:41: BD [place] Posiflush) Bisacodyl No Notes: Memori a 3-03 (Same As: l 21:41: Dulcolax, [place] 00 Bisco-Lax) Ondansetron No Notes: Andrew rae 3-03 (Same as: l 21:41: Zofran) [place] MEDICATION WASTE Product Size: 4 mg Product Wasted: ___ mg Acetaminoph No Notes: Do M emoria en 325 MG / 3-03 not exceed l Hydrocodone 21:41: 4gm/day of [place] Bitartrate 00 acetaminop 10 MG Oral hen. (Same Tablet as: [place] 325/10) Tramadol No Notes: Not Mem oria -03 to exceed l 21:41: 400mg/day. [place] 00 (Same As: Ultram) Hydromorpho No Notes: Andrew rae ne -03 Same as: l 21:41: Dilaudid [place] 00 Regular No 60 units) Andrew rae Insulin, - WASTE: F/P l Human 100 21:41: - Black; E He r[place] UNT/ML 00 - Injectable Municipal Solution Trash Bin Stable for 28 days at room temperatur e Expires in days from ____Date Dextrose No 6.25 gm, Memor ia 50% Syringe 12-12 12.5 mL, l 21:41: Route: [place] 00 IVP, Drug Form: INJ, Dosing Weight 81.818, kg, PRN, PRN Abnormal Lab Result, Start date: 12/12/16 15:41:00 SILL WORKER, Duration: 30 day, Stop date: 01/11/17 16:40:00 CDT Saline No Notes: [facility] Flush 0.9% 3-03 (Same as: l 21:41: BD [place] Posiflush) Bisacodyl No Notes: Memori a 3-03 (Same As: l 21:41: Dulcolax, [place] 00 Bisco-Lax) Ondansetron No Notes: Andrew rae 3-03 (Same as: l 21:41: Zofran) [place] 00 MEDICATION WASTE Product Size: 4 mg Product Wasted: ___ mg Acetaminoph No Notes: Do M emoria en 325 MG / 3-03 not exceed l Hydrocodone 21:41: 4gm/day of [place] Bitartrate 00 acetaminop 10 MG Oral hen. (Same Tablet as: [place] 325/10) Tramadol No Notes: Not Mem oria 3-03 to exceed l 21:41: 400mg/day. [place] 00 (Same As: Ultram) Hydromorpho No Notes: Andrew rae ne 3-03 Same as: l 21:41: Dilaudid [place] Flumazenil No Notes: Memor ia 3-03 (Same as: l 19:34: Romazicon) [place] Naloxone No Notes: Memoria 3-03 Same as l 19:34: Narcan [place] Ondansetron No Notes: Andrew rae 3-03 (Same as: l 19:34: Zofran) [place] 00 MEDICATION WASTE Product Size: 4 mg Product Wasted: ___ mg Hydromorpho No Notes: Andrew rae ne 3-03 Same as: l 19:34: Dilaudid [place] 00 Flumazenil No Notes: Memor ia 3-03 (Same as: l 19:34: Romazicon) [place] 00 Naloxone No Notes: Memoria 3-03 Same as l 19:34: Narcan [place] Ondansetron No Notes: Andrew rae 3-03 (Same as: l 19:34: Zofran) [place] 00 MEDICATION WASTE Product Size: 4 mg Product Wasted: ___ mg Hydromorpho No Notes: Andrew rae ne 3-03 Same as: l 19:34: Dilaudid [place] Flumazenil No Notes: Memor ia 3- (Same as: l 19:34: Romazicon) Naloxone No Notes: Memoria 12-12 Same as l 19:34: Narcan Ondansetron No Notes: Andrew rae 12-12 (Same as: l 19:34: Zofran) MEDICATION WASTE Product Size: 4 mg Product Wasted: ___ mg Hydromorpho No Notes: Andrew rae ne 12-12 Same as: l 19:34: Dilaudid [place] 00 Robaxin No 1,000 mg, Memor ia 12-12 Route: PO, l 19:17: ONCE, [place] Dosing Weight 81.818, kg, Priority: STAT, Start date: 12/12/16 13:17:00 SILL WORKER, Stop date: 12/12/16 13:17:00 SILL WORKER Robaxin No 1,000 mg, Memor ia 12-12 Route: PO, l 19:17: ONCE, Dosing Weight 81.818, kg, Priority: STAT, Start date: 12/12/16 13:17:00 SILL WORKER, Stop date: 12/12/16 13:17:00 SILL WORKER Robaxin No 1,000 mg, Memor ia 12-12 Route: PO, l 19:17: ONCE, Dosing Weight 81.818, kg, Priority: STAT, Start date: 12/12/16 13:17:00 SILL WORKER, Stop date: 12/12/16 13:17:00 SILL WORKER Flumazenil No 0.2 mg, Andrew rae 12-12 Route: l 19:16: IVP, PRN, Dosing Weight 81.818, kg, PRN Benzodiaze pine Reversal, Initial dose, Start date: 12/12/16 13:16:00 SILL WORKER, Duration: 30 day, Stop date: 01/11/17 14:15:00 CDT Naloxone No 0.4 mg, Memori a 12-12 Route: l 19:16: IVP, [place] Q2MIN, Dosing Weight 81.818, kg, PRN Narcotic Reversal, Start date: 12/12/16 13:16:00 SILL WORKER, Duration: 8 doses or times, Stop date: Limited # of times Ondansetron 2017-0 No 4 mg, Memor ia 3- Route: l 19:16: IVP, ONCE, [place] 00 Dosing Weight 81.818, kg, PRN Nausea & Vomiting, Start date: 12/12/16 13:16:00 SILL WORKER Oxycodone 2017-0 No Notes: Memori a 3- (Same as: l 19:16: Roxicodone [place] ) Flumazenil 2017-0 No 0.2 mg, Andrew rae 3-03 Route: l 19:16: IVP, PRN, [place] 00 Dosing Weight 81.818, kg, PRN Benzodiaze pine Reversal, Initial dose, Start date: 12/12/16 13:16:00 SILL WORKER, Duration: 30 day, Stop date: 01/11/17 14:15:00 CDT Naloxone 2017-0 No 0.4 mg, Memori a 3- Route: l 19:16: IVP, [place] 00 Q2MIN, Dosing Weight 81.818, kg, PRN Narcotic Reversal, Start date: 12/12/16 13:16:00 SILL WORKER, Duration: 8 doses or times, Stop date: Limited # of times Ondansetron 2017-0 No 4 mg, Memor ia 12-12 Route: l 19:16: IVP, ONCE, [place] 00 Dosing Weight 81.818, kg, PRN Nausea & Vomiting, Start date: 12/12/16 13:16:00 SILL WORKER Oxycodone 2017-0 No Notes: Memori a 3- (Same as: l 19:16: Roxicodone [place] 00 ) Flumazenil 2017-0 No 0.2 mg, Andrew rae 3-03 Route: l 19:16: IVP, PRN, [place] 00 Dosing Weight 81.818, kg, PRN Benzodiaze pine Reversal, Initial dose, Start date: 12/12/16 13:16:00 SILL WORKER, Duration: 30 day, Stop date: 01/11/17 14:15:00 CDT Naloxone 2017-0 No 0.4 mg, Memori a 3-03 Route: l 19:16: IVP, [place] 00 Q2MIN, Dosing Weight 81.818, kg, PRN Narcotic Reversal, Start date: 12/12/16 13:16:00 SILL WORKER, Duration: 8 doses or times, Stop date: Limited # of times Ondansetron No 4 mg, Memor ia 12-12 Route: l 19:16: IVP, ONCE, Dosing Weight 81.818, kg, PRN Nausea & Vomiting, Start date: 12/12/16 13:16:00 SILL WORKER Oxycodone No Notes: Memori a 12-12 (Same as: l 19:16: Roxicodone ) Methocarbam Yes 1,000 mg = Memoria ol 500 MG 3-03 2 tab, PO, l Oral Tablet 18:53: TID, PRN [place] [Robaxin] 00 Muscle Spasms, X 10 day, # 60 tab, 0 Refill(s) Methocarbam Yes 1,000 mg = Memoria ol 500 MG -03 2 tab, PO, l Oral Tablet 18:53: TID, PRN [place] [Robaxin] 00 Muscle Spasms, X 10 day, # 60 tab, 0 Refill(s) Methocarbam Yes 1,000 mg = Memoria ol 500 MG 3-03 2 tab, PO, l Oral Tablet 18:53: TID, PRN [place] [Robaxin] 00 Muscle Spasms, X 10 day, # 60 tab, 0 Refill(s) { Yes See Memoria (Methylpred 12-12 Instructio l nisolone 4 18:51: ns, PO, Herm rene MG Oral 00 Take by Tablet mouth as [Medrol]) } directed Pack on label., [Medrol # 1 Pack, Dosepak] 0 Refill(s) Famotidine Yes 20 mg = 1 Me moria 20 MG Oral 3-03 tab, PO, l Tablet 18:51: BID, # 14 [place] n 00 tab, 0 Refill(s) Ondansetron Yes 4 mg = 1 Me moria 4 MG Oral 3-03 tab, PO, l Tablet 18:51: BID, X 5 [place] [Zofran] 00 day, # 10 tab, 0 Refill(s) tramadol 2017-0 Yes 50 mg = 1 Andrew rae [...] # 1 Pack, Dosepak] 0 Refill(s) Famotidine 2017 Yes 20 mg = 1 Me moria [...] # 1 Pack, Dosepak] 0 Refill(s) Famotidine 20170 Yes 20 mg = 1 Me moria 20 MG Oral 3-03 tab, PO, l Tablet 18:51: BID, # 14 [place] n 00 tab, 0 Refill(s) Ondansetron 2017-0 Yes 4 mg = 1 Me moria 4 MG Oral 3-03 tab, PO, l Tablet 18:51: BID, X 5 [place] [Zofran] 00 day, # 10 tab, 0 Refill(s) tramadol 2017-0 Yes 50 mg = 1 Andrew rae hydrochlori 3-03 tab, PO, l de 50 MG 18:51: BID, X 30 Herm rene Oral Tablet 00 day, # 60 tab, 0 Refill(s) Famotidine 20170 Yes 1 tab, PO, M emoria 26.6 MG / 3-03 TID, PRN l Ibuprofen 15:29: Pain, # 90 [place] r[place] 800 MG Oral 00 tab, 0 Tablet Refill(s) [Duexis] Famotidine 2016- Yes 1 tab, PO, M emoria 26.6 MG / 3-03 TID, PRN l Ibuprofen 15:29: Pain, # 90 [place] 800 MG Oral 00 tab, 0 Tablet Refill(s) [Duexis] Famotidine 2016- Yes 1 tab, PO, M emoria 26.6 MG / 3-03 TID, PRN l Ibuprofen 15:29: Pain, # 90 [place] 800 MG Oral 00 tab, 0 Tablet Refill(s) [Duexis] ceFAZolin 2016-0 No Notes: Memori a 3-03 Same as: l 08:00: Ancef [place] ceFAZolin 2016-0 No Notes: Memori a 3-03 Same as: l 08:00: Ancef [place] ceFAZolin 2016-0 No Notes: Memori a 3-03 Same as: l 08:00: Ancef [place] Saline 2016-0 No 10 ml, Memoria Flush 0.9% 2-03 Route: l 03:00: IVP, Drug [place] 00 Form: INJ, Dosing Weight 81.818, kg, Q12H, Start date: 11/13/16 21:00:00 SILL WORKER, Duration: 30 day, Stop date: 12/13/16 9:00:00 SILL WORKER Saline 2016-0 No 10 ml, Memoria Flush 0.9% 2-03 Route: l 03:00: IVP, Drug [place] 00 Form: INJ, Dosing Weight 81.818, kg, Q12H, Start date: 11/13/16 21:00:00 SILL WORKER, Duration: 30 day, Stop date: 12/13/16 9:00:00 SILL WORKER Saline 2016-0 No 10 ml, Memoria Flush 0.9% 2-03 Route: l 03:00: IVP, Drug [place] 00 Form: INJ, Dosing Weight 81.818, kg, Q12H, Start date: 11/13/16 21:00:00 SILL WORKER, Duration: 30 day, Stop date: 12/13/16 9:00:00 SILL WORKER sennosides, 2017-0 No 1 tab, Andrew rae CARE HOME 2-02 Route: PO, l 23:00: Drug Form: [place] 00 TAB, Dosing Weight 81.818, kg, BID, Start date: 11/13/16 17:00:00 SILL WORKER, Duration: 30 day, Stop date: 12/13/16 9:00:00 SILL WORKER Docusate 2017-0 No 50 mg, Memoria 2-02 Route: PO, l 23:00: Drug form: [place] 00 CAP, BID, Dosing Weight 81.818, kg, Start date: 11/13/16 17:00:00 SILL WORKER, Duration: 30 day, Stop date: 12/13/16 9:00:00 SILL WORKER, Pediatric Dosing sennosides, 2017-0 No 1 tab, Andrew rae CARE HOME 2-02 Route: PO, l 23:00: Drug Form: [place] 00 TAB, Dosing Weight 81.818, kg, BID, Start date: 11/13/16 17:00:00 SILL WORKER, Duration: 30 day, Stop date: 12/13/16 9:00:00 SILL WORKER Docusate 2017-0 No 50 mg, Memoria 2-02 Route: PO, l 23:00: Drug form: [place] 00 CAP, BID, Dosing Weight 81.818, kg, Start date: 11/13/16 17:00:00 SILL WORKER, Duration: 30 day, Stop date: 12/13/16 9:00:00 SILL WORKER, Pediatric Dosing sennosides, 2017-0 No 1 tab, Andrew rae CARE HOME 2-02 Route: PO, l 23:00: Drug Form: [place] 00 TAB, Dosing Weight 81.818, kg, BID, Start date: 11/13/16 17:00:00 SILL WORKER, Duration: 30 day, Stop date: 12/13/16 9:00:00 SILL WORKER Docusate 2017-0 No 50 mg, Memoria 2-02 Route: PO, l 23:00: Drug form: [place] 00 CAP, BID, Dosing Weight 81.818, kg, Start date: 11/13/16 17:00:00 SILL WORKER, Duration: 30 day, Stop date: 12/13/16 9:00:00 SILL WORKER, Pediatric Dosing Cefazolin 2016-0 No 2 gm, Memoria 2-02 Route: IV, l 22:00: Q8H, [place] 00 Dosing Weight 81.818, kg, Start date: 11/13/16 16:00:00 SILL WORKER, Duration: 24 hr, Stop date: 11/14/16 8:00:00 SILL WORKER Cefazolin 2017-0 No 2 gm, Memoria 11-13 Route: IV, l 22:00: Q8H, [place] 00 Dosing Weight 81.818, kg, Start date: 11/13/16 16:00:00 SILL WORKER, Duration: 24 hr, Stop date: 11/14/16 8:00:00 SILL WORKER Cefazolin 2017-0 No 2 gm, Memoria 11-13 Route: IV, l 22:00: Q8H, [place] 00 Dosing Weight 81.818, kg, Start date: 11/13/16 16:00:00 SILL WORKER, Duration: 24 hr, Stop date: 11/14/16 8:00:00 SILL WORKER Labetalol 2017-0 No 10 mg, Memori a 11-13 Route: l 18:04: IVP, Drug form: INJ, [id number] , Dosing Weight 81.818, kg, PRN Hypertensi on, Start date: 11/13/16 12:04:00 SILL WORKER, Duration: 3 doses or times, Stop date: Limited # of times Flexeril 2017-0 No 10 mg, Memoria 11-13 Route: PO, l 18:04: Q8H, Dosing Weight 81.818, kg, PRN Other -See Comment, Priority: STAT, Start date: 11/13/16 12:04:00 SILL WORKER, Duration: 30 day, Stop date: 12/13/16 12:03:00 SILL WORKER Hydralazine 2017-0 No 20 mg, Andrew rae 11-13 Route: l 18:04: IVP, Drug form: INJ, Q4H, Dosing Weight 81.818, kg, PRN Hypertensi on, Start date: 11/13/16 12:04:00 SILL WORKER, Duration: 30 day, Stop date: 12/13/16 12:03:00 SILL WORKER Saline 2017-0 No 10 ml, Memoria Flush 0.9% 11-13 Route: l 18:04: IVP, Drug [place] 00 Form: INJ, Dosing Weight 81.818, kg, PRN, PRN Line Flush, Start date: 11/13/16 12:04:00 SILL WORKER, Duration: 30 day, Stop date: 12/13/16 12:03:00 SILL WORKER Acetaminoph 2017-0 No 2 tab, Andrew rae en 325 MG / 2 Route: PO, l Hydrocodone 18:04: Drug Form: [place] Bitartrate 00 TAB, 10 MG Oral Dosing Tablet Weight [[place] 81.818, 10/325] kg, Q4H, PRN Pain Score 4-6, Start date: 11/13/16 12:04:00 SILL WORKER, Duration: 30 day, Stop date: 12/13/16 12:03:00 SILL WORKER Dilaudid 2017-0 No 0.5 mg, Memori a 2 Route: l 18:04: IVP, Q3H, [place] 00 Dosing Weight 81.818, kg, PRN Pain Score 7-10, Start date: 11/13/16 12:04:00 SILL WORKER, Duration: 30 day, Stop date: 12/13/16 12:03:00 SILL WORKER Ondansetron 2017-0 No /= 4 Memori a 2-02 years, l 18:04: Pediatric [place] 00 Dosing Benadryl 2017-0 No 25 mg, Memoria 2- Route: PO, l 18:04: Drug form: [place] 00 TAB, TID, Dosing Weight 81.818, kg, PRN Itching, Start date: 11/13/16 12:04:00 SILL WORKER, Duration: 30 day, Stop date: 12/13/16 12:03:00 SILL WORKER Bisacodyl 2017-0 No 10 mg, Memori a 2- Route: HI, l 18:04: Drug form: [place] 00 SUPP, Daily, Dosing Weight 81.818, kg, PRN Constipati on, Start date: 11/13/16 12:04:00 SILL WORKER, Duration: 30 day, Stop date: 12/13/16 12:03:00 SILL WORKER phenol 2017-0 No 1 spray, Memoria 2- Route: l 18:04: TOP, [place] 00 Daily, PRN Sore Throat, Start date: 11/13/16 12:04:00 SILL WORKER, Duration: 30 day, Stop date: 12/13/16 12:03:00 SILL WORKER Labetalol 2017-0 No 10 mg, Memori a 11-13 Route: l 18:04: IVP, Drug form: INJ, [id number] , Dosing Weight 81.818, kg, PRN Hypertensi on, Start date: 11/13/16 12:04:00 SILL WORKER, Duration: 3 doses or times, Stop date: Limited # of times Flexeril 2017-0 No 10 mg, Memoria 2 Route: PO, l 18:04: Q8H, [place] Dosing Weight 81.818, kg, PRN Other -See Comment, Priority: STAT, Start date: 11/13/16 12:04:00 SILL WORKER, Duration: 30 day, Stop date: 12/13/16 12:03:00 SILL WORKER Hydralazine 2017-0 No 20 mg, Andrew rae 11-13 Route: l 18:04: IVP, Drug form: INJ, Q4H, Dosing Weight 81.818, kg, PRN Hypertensi on, Start date: 11/13/16 12:04:00 SILL WORKER, Duration: 30 day, Stop date: 12/13/16 12:03:00 SILL WORKER Saline 2017-0 No 10 ml, Memoria Flush 0.9% 11-13 Route: l 18:04: IVP, Drug Form: INJ, Dosing Weight 81.818, kg, PRN, PRN Line Flush, Start date: 11/13/16 12:04:00 SILL WORKER, Duration: 30 day, Stop date: 12/13/16 12:03:00 SILL WORKER Acetaminoph 2017-0 No 2 tab, Andrew rae en 325 MG / 2 Route: PO, l Hydrocodone 18:04: Drug Form: [place] Bitartrate 00 TAB, 10 MG Oral Dosing Tablet Weight [[place] 81.818, 10/325] kg, Q4H, PRN Pain Score 4-6, Start date: 11/13/16 12:04:00 SILL WORKER, Duration: 30 day, Stop date: 12/13/16 12:03:00 SILL WORKER Dilaudid 2017-0 No 0.5 mg, Memori a 11-13 Route: l 18:04: IVP, Q3H, [place] 00 Dosing Weight 81.818, kg, PRN Pain Score 7-10, Start date: 11/13/16 12:04:00 SILL WORKER, Duration: 30 day, Stop date: 12/13/16 12:03:00 SILL WORKER Ondansetron 2017-0 No /= 4 Memori a 2-02 years, l 18:04: Pediatric Dosing Benadryl 2017-0 No 25 mg, Memoria 2-02 Route: PO, l 18:04: Drug form: [place] TAB, TID, Dosing Weight 81.818, kg, PRN Itching, Start date: 11/13/16 12:04:00 SILL WORKER, Duration: 30 day, Stop date: 12/13/16 12:03:00 SILL WORKER Bisacodyl 2017-0 No 10 mg, Memori a 2- Route: HI, l 18:04: Drug form: [place] SUPP, Daily, Dosing Weight 81.818, kg, PRN Constipati on, Start date: 11/13/16 12:04:00 SILL WORKER, Duration: 30 day, Stop date: 12/13/16 12:03:00 SILL WORKER phenol 2017-0 No 1 spray, Memoria 2- Route: l 18:04: TOP, [place] 00 Daily, PRN Sore Throat, Start date: 11/13/16 12:04:00 SILL WORKER, Duration: 30 day, Stop date: 12/13/16 12:03:00 SILL WORKER Labetalol 2017-0 No 10 mg, Memori a 2- Route: l 18:04: IVP, Drug form: INJ, [id number] , Dosing Weight 81.818, kg, PRN Hypertensi on, Start date: 11/13/16 12:04:00 SILL WORKER, Duration: 3 doses or times, Stop date: Limited # of times Flexeril 2017-0 No 10 mg, Memoria 2-02 Route: PO, l 18:04: Q8H, Dosing Weight 81.818, kg, PRN Other -See Comment, Priority: STAT, Start date: 11/13/16 12:04:00 SILL WORKER, Duration: 30 day, Stop date: 12/13/16 12:03:00 SILL WORKER Hydralazine 2017-0 No 20 mg, Andrew rae 2- Route: l 18:04: IVP, Drug [place] form: INJ, Q4H, Dosing Weight 81.818, kg, PRN Hypertensi on, Start date: 11/13/16 12:04:00 SILL WORKER, Duration: 30 day, Stop date: 12/13/16 12:03:00 SILL WORKER Saline 2017-0 No 10 ml, Memoria Flush 0.9% 11-13 Route: l 18:04: IVP, Drug [place] Form: INJ, Dosing Weight 81.818, kg, PRN, PRN Line Flush, Start date: 11/13/16 12:04:00 SILL WORKER, Duration: 30 day, Stop date: 12/13/16 12:03:00 SILL WORKER Acetaminoph 2017-0 No 2 tab, Andrew rae en 325 MG / 11-13 Route: PO, l Hydrocodone 18:04: Drug Form: [place] Bitartrate 00 TAB, 10 MG Oral Dosing Tablet Weight [[place] 81.818, 10/325] kg, Q4H, PRN Pain Score 4-6, Start date: 11/13/16 12:04:00 SILL WORKER, Duration: 30 day, Stop date: 12/13/16 12:03:00 SILL WORKER Dilaudid 2017-0 No 0.5 mg, Memori a 11-13 Route: l 18:04: IVP, Q3H, [place] 00 Dosing Weight 81.818, kg, PRN Pain Score 7-10, Start date: 11/13/16 12:04:00 SILL WORKER, Duration: 30 day, Stop date: 12/13/16 12:03:00 SILL WORKER Ondansetron 2017-0 No /= 4 Memori a 2-02 years, l 18:04: Pediatric [place] 00 Dosing Benadryl 2017-0 No 25 mg, Memoria 2 Route: PO, l 18:04: Drug form: [place] 00 TAB, TID, Dosing Weight 81.818, kg, PRN Itching, Start date: 11/13/16 12:04:00 SILL WORKER, Duration: 30 day, Stop date: 12/13/16 12:03:00 SILL WORKER Bisacodyl 2017-0 No 10 mg, Memori a 2- Route: HI, l 18:04: Drug form: [place] 00 SUPP, Daily, Dosing Weight 81.818, kg, PRN Constipati on, Start date: 11/13/16 12:04:00 SILL WORKER, Duration: 30 day, Stop date: 12/13/16 12:03:00 SILL WORKER phenol 2016-0 No 1 spray, Memoria 2 Route: l 18:04: TOP, [place] 00 Daily, PRN Sore Throat, Start date: 11/13/16 12:04:00 SILL WORKER, Duration: 30 day, Stop date: 12/13/16 12:03:00 SILL WORKER ceFAZolin 2016- No Notes: Memori a 2-02 Same as: l 09:00: Ancef [place] ceFAZolin 2016- No Notes: Memori a 2-02 Same as: l 09:00: Ancef [place] ceFAZolin 2016-0 No Notes: Memori a 2-02 Same as: l 09:00: Ancef [place] Aspirin 325 Yes 325 mg = 1 Memoria MG Oral 1-03 tab, PO, l Tablet 15:27: Daily, 0 [place] 00 Refill(s) Aspirin 325 Yes 325 mg = 1 Memoria MG Oral 1-03 tab, PO, l Tablet 15:27: Daily, 0 [place] 00 Refill(s) Aspirin 325 2016-0 Yes 325 mg = 1 Memoria MG Oral 1-03 tab, PO, l Tablet 15:27: Daily, 0 [place] 00 Refill(s) METOPROLOL Yes Take by [facility] SUCCINATE 18 mouth. ity of ORAL 00:21: [address] LISINOPRIL Yes Take by [facility] ers ORAL -18 mouth. ity of 00:21: [address] AZITHROMYCI Yes Take by [facility] vers N 18 mouth. ity of (ZITHROMAX 00:21: [place] Z-ROSALINDA ORAL) [address] [place] [address] Cetirizine 2015-0 Yes Take by [facility] ers (ZYRTEC) 10 18 mouth. ity of mg capsule 00:21: [address] METOPROLOL Yes Take by [facility] SUCCINATE 18 mouth. ity of ORAL 00:21: [address] LISINOPRIL 2016-0 Yes Take by Univ ers ORAL 1-18 mouth. ity of 00:21: [address] Branch AZITHROMYCI Yes Take by Uni vers N 1-18 mouth. ity of (ZITHROMAX 00:21: [place] Z-ROSALINDA ORAL) [address] [place] [address] Cetirizine Yes Take by [employer] ers (ZYRTEC) 10 1-18 mouth. ity of mg capsule 00:21: [address] METOPROLOL Yes Take by Univ ers SUCCINATE 1-18 mouth. ity of ORAL 00:21: [address] Branch LISINOPRIL Yes Take by [employer] ers ORAL 118 mouth. ity of 00:21: [address] AZITHROMYCI Yes Take by Uni vers N 18 mouth. ity of (ZITHROMAX 00:21: [place] Z-ROSALINDA ORAL) [address] [place] [address] Cetirizine Yes Take by [employer] ers (ZYRTE) 10 18 mouth. ity of mg capsule 00:21: [address] METOPROLOL Yes Take by Univ ers SUCCINATE 1-18 mouth. ity of ORAL 00:21: [address] LISINOPRIL Yes Take by [employer] ers ORAL 118 mouth. ity of 00:21: [address] AZITHROMYCI Yes Take by Uni vers N -18 mouth. ity of (ZITHROMAX 00:21: [place] Z-ROSALINDA ORAL) [address] [place] [address] Cetirizine Yes Take by [employer] ers (ZYRTEC) 10 -18 mouth. ity of mg capsule 00:21: [address] METOPROLOL Yes Take by Univ ers SUCCINATE 1-18 mouth. ity of ORAL 00:21: [address] Branch LISINOPRIL Yes Take by Univ ers ORAL 1-18 mouth. ity of 00:21: [address] AZITHROMYCI Yes Take by Uni vers N 1-18 mouth. ity of (ZITHROMAX 00:21: [place] Z-ROSALINDA ORAL) [address] [place] [address] Cetirizine Yes Take by Uni vers (ZYRTEC) 10 1-18 mouth. ity of mg capsule 00:21: [address] METOPROLOL Yes Take by [employer] ers SUCCINATE 1-18 mouth. ity of ORAL 00:21: [address] Branch LISINOPRIL Yes Take by [employer] ers ORAL 1-18 mouth. ity of 00:21: [address] AZITHROMYCI Yes Take by Uni vers N 1-18 mouth. ity of (ZITHROMAX 00:21: [place] Z-ROSALINDA ORAL) [address] [place] [address] Cetirizine Yes Take by [employer] ers (ZYRTEC) 10 18 mouth. ity of mg capsule 00:21: [address] METOPROLOL Yes Take by [employer] ers SUCCINATE 18 mouth. ity of ORAL 00:21: [address] LISINOPRIL Yes Take by [employer] ers ORAL 18 mouth. ity of 00:21: [address] AZITHROMYCI Yes Take by Uni vers N 18 mouth. ity of (ZITHROMAX 00:21: [place] Z-ROSALINDA ORAL) [address] [place] [address] Cetirizine Yes Take by [employer] ers (ZYRTEC) 10 -18 mouth. ity of mg capsule 00:21: [address] METOPROLOL Yes Take by [employer] ers SUCCINATE -18 mouth. ity of ORAL 00:21: [address] LISINOPRIL Yes Take by [employer] ers ORAL 118 mouth. ity of 00:21: [address] AZITHROMYCI Yes Take by Uni vers N 1-18 mouth. ity of (ZITHROMAX 00:21: [place] Z-ROSALINDA ORAL) [address] [place] [address] Cetirizine Yes Take by [employer] ers (ZYRTEC) 10 -18 mouth. ity of mg capsule 00:21: [address] METOPROLOL Yes Take by [employer] ers SUCCINATE 1-18 mouth. ity of ORAL 00:21: [address] LISINOPRIL Yes Take by [employer] ers ORAL 1-18 mouth. ity of 00:21: [address] AZITHROMYCI Yes Take by Uni vers N 1-18 mouth. ity of (ZITHROMAX 00:21: [place] Z-ROSALINDA ORAL) [address] [place] [address] Cetirizine Yes Take by Univ ers (ZYRTEC) 10 1-18 mouth. ity of mg capsule 00:21: [address] METOPROLOL Yes Take by Univ ers SUCCINATE 1-18 mouth. ity of ORAL 00:21: [address] LISINOPRIL Yes Take by Univ ers ORAL 1-18 mouth. ity of 00:21: [address] AZITHROMYCI Yes Take by Uni vers N 1-18 mouth. ity of (ZITHROMAX 00:21: [place] Z-ROSALINDA ORAL[address] Cetirizine Yes Take by [facility] ers (ZYRTEC) 10 1-18 mouth. ity of mg capsule 00:21: [address] METOPROLOL Yes Take by Univ ers SUCCINATE 1-17 mouth. ity of ORAL 18:21: [address] LISINOPRIL Yes Take by Univ ers ORAL 1-17 mouth. ity of 18:21: [address] Cetirizine Yes Take by Univ ers (ZYRTEC) 10 1-17 mouth. ity of mg capsule 18:21: [address] METOPROLOL Yes Take by Univ ers SUCCINATE 1-17 mouth. ity of ORAL 18:21: [address] LISINOPRIL Yes Take by Univ ers ORAL 1-17 mouth. ity of 18:21: [address] Cetirizine Yes Take by Univ ers (ZYRTEC) 10 1-17 mouth. ity of mg capsule 18:21: [address] METOPROLOL Yes Take by Univ ers SUCCINATE 1-17 mouth. ity of ORAL 18:21: [address] LISINOPRIL Yes Take by Univ ers ORAL 1-17 mouth. ity of 18:21: [address] Cetirizine Yes Take by Univ ers (ZYRTEC) 10 1-17 mouth. ity of mg capsule 18:21: [address] METOPROLOL Yes Take by Univ ers SUCCINATE 1-17 mouth. ity of ORAL 18:21: [address] LISINOPRIL 2016-0 Yes Take by Univ ers ORAL 1-17 mouth. ity of 18:21: [address] Cetirizine 2016 Yes Take by [facility] ers (ZYRTE) 10 1-17 mouth. ity of mg capsule 18:21: [address] METOPROLOL 0 Yes Take by [facility] ers SUCCINATE 1-17 mouth. ity of ORAL 18:21: [address] LISINOPRIL 2016 Yes Take by [facility] ers ORAL 1-17 mouth. ity of 18:21: [address] Cetirizine Yes Take by [facility] ers (ZYRTE) 10 1-17 mouth. ity of mg capsule 18:21: [address] METOPROLOL Yes Take by [facility] ers SUCCINATE 1-17 mouth. ity of ORAL 18:21: [address] LISINOPRIL Yes Take by [facility] ers ORAL 1-17 mouth. ity of 18:21: [address] Cetirizine Yes Take by [facility] ers (ZYRTE) 10 1-17 mouth. ity of mg capsule 18:21: [address] METOPROLOL Yes Take by [facility] ers SUCCINATE 1-17 mouth. ity of ORAL 18:21: [address] LISINOPRIL Yes Take by [facility] ers ORAL 1-17 mouth. ity of 18:21: [address] Cetirizine Yes Take by [facility] ers (ZYRTE) 10 1-17 mouth. ity of mg capsule 18:21: [address] METOPROLOL Yes Take by [facility] ers SUCCINATE 1-17 mouth. ity of ORAL 18:21: [address] LISINOPRIL [address] Yes Take by [facility] ers ORAL 1-17 mouth. ity of 18:21: [address] Cetirizine [address] Yes Take by [facility] ers (ZYRTE) 10 1-17 mouth. ity of mg capsule 18:21: [address] METOPROLOL 2015-0 Yes Take by [facility] ers SUCCINATE 1-17 mouth. ity of ORAL 18:21: [address] LISINOPRIL [address] Yes Take by [facility] ers ORAL 1-17 mouth. ity of 18:21: [address] Cetirizine 2016-0 Yes Take by [facility] ([facility]) 10 1-17 mouth. ity of mg capsule 18:21: [address] METOPROLOL 2015-0 Yes Take by [facility] ers SUCCINATE 1-17 mouth. ity of ORAL 18:21: [address] LISINOPRIL 2016-0 Yes Take by [facility] ORAL 1-17 mouth. ity of 18:21: [address] Cetirizine 2015-0 Yes Take by [facility] ([facility]) 10 1-17 mouth. ity of mg capsule 18:21: [address] amoxicillin 2015-0 Yes 1{tbl} Take 1 Tab [...] mouth ity of e 00:00: every 12 [place] (AUGMENTIN) 00 (twelve) Medi gabriella 875-125 mg [...] 875-125 mg hours. Branch per tablet codeine-gua 2020- No 5mL Take 5 mL Univers ifenesin 1-17 12-29 by mouth ity of (ROBITUSSIN 00:00: 00:00 every 4 [place] AC) 10-100 00 :00 (four) Medical mg/5 mL hours as Branch solution needed for Cough. Immunizations Ordered Filled Immunization Date Status Comments [facility] e Immunization Name Name SARS-COV-2 COVID-19 2020-12-29 Completed Unive rsity of PFIZER VACCINE 00:00:00 [facility] Branch SARS-COV-2 COVID-19 2020-12-29 Completed Unive rsity of PFIZER VACCINE 00:00:00 [place] Med[facility] gabriella Branch SARS-COV-2 COVID-19 2020-12-29 Completed Unive rsity of PFIZER VACCINE 00:00:00 [facility] Branch SARS-COV-2 COVID-19 2020-12-29 Completed Unive rsity of PFIZER VACCINE 00:00:00 [facility] Branch SARS-COV-2 COVID-19 2020-12-29 Completed Unive rsity of PFIZER VACCINE 00:00:00 [facility] Branch SARS-COV-2 COVID-19 2020-12-29 Completed Unive rsity of PFIZER VACCINE 00:00:00 [facility] Branch SARS-COV-2 COVID-19 2020-12-29 Completed Unive rsity of PFIZER VACCINE 00:00:00 [facility] Branch SARS-COV-2 COVID-19 2020-12-29 Completed Unive rsity of PFIZER VACCINE 00:00:00 [facility] Branch SARS-COV-2 COVID-19 2020-12-29 Completed Unive rsity of PFIZER VACCINE 00:00:00 [facility] Branch SARS-COV-2 COVID-19 2020-12-29 Completed Unive rsity of PFIZER VACCINE 00:00:00 [facility] Branch SARS-COV-2 COVID-19 2020-12-29 Completed Unive rsity of PFIZER VACCINE 00:00:00 [facility] Branch SARS-COV-2 COVID-19 2020-12-29 Completed Unive rsity of PFIZER VACCINE 00:00:00 [facility] Branch SARS-COV-2 COVID-19 2020-12-29 Completed Unive rsity of PFIZER VACCINE 00:00:00 [facility] Branch SARS-COV-2 COVID-19 2020-12-29 Completed Unive rsity of PFIZER VACCINE 00:00:00 [facility] Branch SARS-COV-2 COVID-19 2020-12-08 Completed Unive rsity of PFIZER VACCINE 00:00:00 [facility] Branch SARS-COV-2 COVID-19 2020-12-08 Completed Unive rsity of PFIZER VACCINE 00:00:00 [facility] SARS-COV-2 COVID-19 2020-12-08 Completed Unive rsity of PFIZER VACCINE 00:00:00 [facility] Branch SARS-COV-2 COVID-19 2020-12-08 Completed Unive rsity of PFIZER VACCINE 00:00:00 [facility] SARS-COV-2 COVID-19 2020-12-08 Completed Unive rsity of PFIZER VACCINE 00:00:00 [facility] SARS-COV-2 COVID-19 2020-12-08 Completed Unive rsity of PFIZER VACCINE 00:00:00 [facility] SARS-COV-2 COVID-19 2020-12-08 Completed Unive rsity of PFIZER VACCINE 00:00:00 [facility] SARS-COV-2 COVID-19 2020-12-08 Completed Unive rsity of PFIZER VACCINE 00:00:00 [facility] SARS-COV-2 COVID-19 2020-12-08 Completed Unive rsity of PFIZER VACCINE 00:00:00 [facility] SARS-COV-2 COVID-19 2020-12-08 Completed Unive rsity of PFIZER VACCINE 00:00:00 [facility] SARS-COV-2 COVID-19 2020-12-08 Completed Unive rsity of PFIZER VACCINE 00:00:00 [facility] SARS-COV-2 COVID-19 2020-12-08 Completed Unive rsity of PFIZER VACCINE 00:00:00 [facility] SARS-COV-2 COVID-19 2020-12-08 Completed Unive rsity of PFIZER VACCINE 00:00:00 [facility] SARS-COV-2 COVID-19 2020-12-08 Completed Unive rsity of PFIZER VACCINE 00:00:00 [facility] pneumococcal 2016-12-13 Completed [facility] oneill 13-valent vaccine 15:57:00 pneumococcal 2016-12-13 Completed [facility] oneill 13-valent vaccine 15:57:00 pneumococcal 2016-12-13 Completed [facility] oneill 13-valent vaccine 15:57:00 Vital Signs Vital Name Observation Time Observation Value Comments Source Systolic blood 2021-12-03 03:15:04 135 mm[Hg] Univer sity of pressure [facility] Diastolic blood 2021-12-03 03:15:04 72 mm[Hg] Unive rsity of pressure [facility] Heart rate 2021-12-03 03:15:04 71 /min [facility] Respiratory rate 2021-12-03 03:15:04 18 /min Univ ersity of [place] [facility] Oxygen saturation in 2021-12-03 03:15:04 96 /min University of Arterial blood by [facility] gabriella Pulse oximetry Branch Body temperature 2021-12-02 23:21:00 36.67 Natalie Univ ersity of [place] [facility] Body weight 2021-12-02 23:21:00 81.194 kg Universi [facility] [place] [facility] [place] BMI 2021-12-02 23:21:00 29.79 kg/m2 [facility] [place] [facility] Systolic blood 2021-10-14 19:44:00 135 mm[Hg] Univer sity of pressure [place] [facility] Diastolic blood 2021-10-14 19:44:00 80 mm[Hg] Unive rsity of pressure [place] [facility] Heart rate 2021-10-14 19:44:00 66 /min [facility] [place] [facility] [place] Body temperature 2021-10-14 19:44:00 36.78 Natalie Univ ersity [facility] [place] [facility] Respiratory rate 2021-10-14 19:44:00 18 /min Univ ersity [facility] [place] [facility] Body height 2021-10-14 19:44:00 165.1 cm [facility] [place] [facility] Body weight 2021-10-14 19:44:00 81.194 kg [facility] [place] [facility] BMI 2021-10-14 19:44:00 29.79 kg/m2 Universi ty of [facility] Oxygen saturation in 2021-10-14 19:44:00 96 /min University of Arterial blood by [facility] Pulse oximetry Branch Systolic blood 2021-10-10 02:05:00 135 mm[Hg] Univer sity of pressure [place] [facility] Diastolic blood 2021-10-10 02:05:00 80 mm[Hg] Unive rsity of pressure [place] [facility] Heart rate 2021-10-10 02:05:00 75 /min [facility] [place] [facility] Respiratory rate 2021-10-10 02:05:00 18 /min Univ ersity [facility] [place] [facility] Oxygen saturation in 2021-10-10 02:05:00 97 /min University of Arterial blood by [facility] Pulse oximetry Branch Body temperature 2021-10-09 22:05:00 37.61 Natalie Univ ersity [facility] [place] [facility] Body weight 2021-10-09 22:05:00 82.101 kg [facility] [place] [facility] BMI 2021-10-09 22:05:00 30.12 kg/m2 [facility] [place] [facility] Systolic blood 2021-04-16 15:15:00 131 mm[Hg] Univer sity of pressure [place] [facility] Diastolic blood 2021-04-16 15:15:00 65 mm[Hg] Unive rsity of pressure [place] [facility] Heart rate 2021-04-16 15:15:00 67 /min [facility] [place] [facility] Body height 2021-04-16 15:15:00 165.1 cm [facility] [place] [facility] Body weight 2021-04-16 15:15:00 82.101 kg [facility] [place] [facility] BMI 2021-04-16 15:15:00 30.12 kg/m2 [facility] [place] [facility] Oxygen saturation in 2021-04-16 15:15:00 95 /min University of Arterial blood by [facility] Pulse oximetry Branch Systolic blood 2019-12-16 23:00:00 121 mm[Hg] Univer sity of pressure [place] [facility] Diastolic blood 2019-12-16 23:00:00 74 mm[Hg] Unive rsity of pressure [place] [facility] Heart rate 2019-12-16 23:00:00 93 /min [facility] [place] [facility] Respiratory rate 2019-12-16 23:00:00 18 /min Univ ersity [facility] [place] [facility] Oxygen saturation in 2019-12-16 23:00:00 98 /min University of Arterial blood by [facility] Pulse oximetry Branch Body temperature 2019-12-16 22:10:00 37.06 Natalie Univ [facility] [place] [facility] Body weight 2019-12-16 22:10:00 89.359 kg [facility] [place] [facility] BMI 2019-12-16 22:10:00 32.78 kg/m2 [facility] [place] [facility] Systolic blood 2019-12-16 23:00:00 121 mm[Hg] Univer sity of pressure [place] [facility] Diastolic blood 2019-12-16 23:00:00 74 mm[Hg] Unive rsity of pressure [place] [facility] Heart rate 2019-12-16 23:00:00 93 /min [facility] [place] [facility] Respiratory rate 2019-12-16 23:00:00 18 /min Univ ersity [facility] [place] [facility] Oxygen saturation in 2019-12-16 23:00:00 98 /min University of Arterial blood by [facility] Pulse oximetry Branch Body temperature 2019-12-16 22:10:00 37.06 Natalie Univ [facility] Body weight 2019-12-16 22:10:00 89.359 kg [facility] BMI 2019-12-16 22:10:00 32.78 kg/m2 [facility] Respitory Rate 2016-12-13 14:09:00 Memori al [place] Heart Rate 2016-12-13 14:09:00 [facility] [place] Systolic (mm Hg) 2016-12-13 14:09:00 Andrew rial [place] Diastolic (mm Hg) 2016-12-13 14:09:00 Mem orial [place] Temperature Oral (F) 2016-12-13 14:09:00 98.2 F [facility] [place] Respitory Rate 2016-12-13 09:55:00 Memori al [place] Temperature Oral (F) 2016-12-13 09:55:00 97.7 F [facility] [place] Heart Rate 2016-12-13 09:55:00 [facility] [place] Systolic (mm Hg) 2016-12-13 09:55:00 Andrew rial [place] Diastolic (mm Hg) 2016-12-13 09:55:00 Mem orial [place] Systolic (mm Hg) 2016-12-13 05:49:00 Andrew rial [place] Diastolic (mm Hg) 2016-12-13 05:49:00 Mem orial [place] Temperature Oral (F) 2016-12-13 05:49:00 97.6 F [facility] [place] Heart Rate 2016-12-13 05:49:00 [facility] [place] Respitory Rate 2016-12-13 05:49:00 Memori al [place] Height 2016-12-08 18:31:00 165.1 cm [facility] [place] Weight 2016-12-08 18:31:00 [facility] [place] BMI Calculated 2016-12-08 18:31:00 Memori al [place] Heart Rate 2016-11-13 12:41:00 [facility] [place] Systolic (mm Hg) 2016-11-13 12:41:00 Andrew rial [place] Diastolic (mm Hg) 2016-11-13 12:41:00 Mem orial [place] Respitory Rate 2016-11-13 12:41:00 Memori al [place] Weight 2016-11-13 12:41:00 [facility] [place] BMI Calculated 2016-11-13 12:41:00 Memori al [place] Height 2016-11-07 20:48:00 165.1 cm [facility] [place] Heart Rate 2016-11-07 20:48:00 [facility] [place] Systolic (mm Hg) 2016-11-07 20:48:00 Andrew rial [place] Diastolic (mm Hg) 2016-11-07 20:48:00 Mem orial [place] BMI Calculated 2016-10-16 14:02:00 Memori al [place] Height 2016-10-16 14:02:00 165.1 cm [facility] [place] Weight 2016-10-16 14:02:00 [facility] [place] Systolic (mm Hg) 2016-10-16 13:57:00 Andrew rial [place] Diastolic (mm Hg) 2016-10-16 13:57:00 Mem orial [place] Respitory Rate 2016-10-16 13:57:00 Memori al [place] Procedures Procedure Date / Time Performed Performing Clinician [facility] e ASSIGNMENT OF BENEFITS 2022-02-19 17:22:40 Doctor Unassigned, No [facility] URINALYSIS 2021-12-03 02:25:00 Yaima Hanley [facility] XR SPINE THORACIC 2 VW 2021-10-10 00:12:24 Sylvia Duenas [facility] URINALYSIS 2021-10-09 22:12:00 Sylvia Duenas [facility] NOTICE OF PRIVACY 2021-10-09 22:00:13 Doctor Unassigned, No [facility] PRACTICES [facility] Branch CONSENT/REFUSAL FOR 2021-10-09 21:59:32 Doctor Unassigned, No [facility] DIAGNOSIS AND [facility] TREATMENT REFERRAL- 2021-03-05 05:01:00 Doctor Unassigned, No [facility] REQUEST/RESPONSE [facility] [place] XR CERVICAL SPINE 3 VW 2020-11-01 20:14:34 Kaela Hui [facility] ASSIGNMENT OF BENEFITS 2020-11-01 19:25:28 Doctor Unassigned, No [facility] XR CHEST 2 VW 2019-12-16 22:35:06 Freddy Metcalf [place] [facility] RAPID STREP SCREEN FOR 2019-12-16 22:18:00 Freddy Metcalf [facility] GROUP A [facility] Branch ADC,CLC OR LCC ONLY - 2019-12-16 22:18:00 Freddy Metcalf [facility] [place] INFLUENZA A & B DIRECT Medical B ranch ANTIGEN NOTICE OF PRIVACY 2019-12-16 21:12:21 Doctor Unassigned, No Univ [facility] PRACTICES Name Medical Branch Cervical spinal fusion 2016-12-12 06:00:00 Kira Last by anterior technique Arm repair<sup>1</sup> [place] Last Encounters Start End Encounter Admission Attending Care Care Encounter Source Date/Time Date/Time Type Type Clinicians Facility Department ID 2022-11-27 2022-11-27 Telephone Team, [facility] ADARSH [id number] Univers 00:00:00 00:00:00 Health UNIQUE [id number] it y of Maintenance HOSPITAL [id number] [place] [id number] [place] [id number] [place] 2022-08-13 2022-08-13 Telephone Team, [facility] ADARSH [id number] Univers 00:00:00 00:00:00 Health UNIQUE [id number] it y of [facility] [id number] [place] [id number] [facility] 082 [place] 2022-02-20 2022-02-20 Telephone JennyADARSH [id number] Univers 00:00:00 00:00:00 Jennifer UNIQUE [id number] it y of HOSPITAL [id number] Good as [id number] [facility] 019 [place] 2022-02-19 2022-02-19 Laboratory Only, Ang Db Test [facility] 1.2.8 [id number] Univers 12:15:00 12:30:00 Only [employer], [employer] [id number] ity of [place] 4.2.7.2.686 Good as OTILIA?BLEA [phone] Ms [address] MEDICAL OFFICE BUILDING 2022-02-19 2022-02-19 Outpatient R DAYNE [facility] [id number] Univers 12:15:00 12:15:00 MARTHA natalya [facility] 2022-02-19 2022-02-19 Outpatient R DANIEL, [facility] [id number] Univers 09:30:00 09:30:00 FORREST cornelius o f [facility] 2022-02-19 2022-02-19 Orders Doctor ADARSH 1.2.840.114 [id number] Univers 00:00:00 00:00:00 Only Unassigned, UNIQUE 350.1.13.10 ity of [place] [facility] 4.2.7.2.686 Good as [phone] [facility] [address] [place] 2021-12-02 2021-12-02 [facility] [id number] Univers 17:23:00 21:20:00 YAIMA natalya [facility] 2021-12-02 2021-12-02 [facility] 1.2.840.114 [id number] Univers 17:23:00 21:20:00 Yaima [place] 350.1.13.10 i ty of [place] 4.2.7.2.686 [place] [facility] [phone] [facility] [address] [place] 2021-10-16 2021-10-16 Letter ADARSH Patel 1.2.840.114 [id number] Univers 00:00:00 00:00:00 (Out) Alison CALHOUN [id number] it y of [facility] 4.2.7.2.686 Good as [phone] [facility] [address] 2021-10-15 2021-10-15 Telephone Ban [facility] 1.2.141.035 [id number] Univers 00:00:00 00:00:00 [facility] 350.1.13.10 it y of [place] [id number] Good as OTILIA?BLEA [phone] [address] MEDICAL OFFICE BUILDING 2021-10-14 2021-10-14 Outpatient R GERONIMO [facility] [id number] Univers 13:40:00 14:23:16 LIVIER cornelius [facility] 2021-10-14 2021-10-14 Urgent Ban Adarsh [facility] 1.2.840.114 [id number] Univers 13:40:00 14:00:00 Livier Hwang [facility] 350.1.13.10 ity of [place] [id number] Good as OTILIA?BLEA [phone] Ms dicok KNEY [address] MEDICAL OFFICE BUILDING 2021-10-09 2021-10-09 Emergency X [facility] ERT [id number] Univers 16:08:00 20:08:00 [facility] 2021-10-09 2021-10-09 Emergency [facility] 1.2.040.004 [id number] Univers 16:08:00 20:08:00 Sylvia COREA 350.1.13.10 ity of [place]2.7.2.[place] [phone] [facility] [address] [place] 2021-04-16 2021-04-16 Outpatient R FRANCOIS [facility] [id number] Univers 10:43:11 23:59:00 ARTUROADRIANA adryan o f [facility] 2021-04-16 2021-04-16 Office [facility] 1.2.840.114 [id number] Univers 10:06:06 10:26:06 Visit Jerome [place] 350.1.13.10 ity of [place] 4.2.7.2.[place] Profess[place] [phone] Ms quique blank [address] [facility] 2021-03-12 2021-03-12 Letter ADARSH Diehl 1.2.840.114 [id number] Univers 00:00:00 00:00:00 (Out) Yisel CALHOUN 350.1.13.10 it y of [facility]PITAL 4.2.7.2.686 Good as [phone] [facility] [address] 2021-03-05 2021-03-05 Orders Doctor ALTAMIRANO 1.2.840.114 [id number] Univers 00:00:00 00:00:00 Only Unassigned, UNIQUE 350.1.13.10 ity of [place] [facility] 4.2.7.2.686 Good as [phone] [facility] [address] [place] 2020-12-29 2020-12-29 Outpatient [facility] [id number] Univers 10:05:00 10:05:00 ity of [facility] 2020-12-08 2020-12-08 Outpatient [facility] [id number] Univers 10:15:00 10:15:00 ity of [facility] 2020-11-01 2020-11-01 [facility] 1.2.840.114 [id number] Univers 13:29:39 23:59:00 Encounter Shruthi Corea 350.1.13.10 ity of [place] 4.2.7.2.686 [place] [facility] [phone] [facility] [address] [place] 2020-11-01 2020-11-01 Outpatient R [facility] [id number] Univers 00:00:00 00:00:00 ity of [facility] 2020-11-01 2020-11-01 Orders Doctor ADARSH 1.2.840.114 [id number] Univers 00:00:00 00:00:00 Only Unassigned, UNIQUE 350.1.13.10 ity of [place] [facility] 4.2.7.2.686 Good as [phone] [facility] [address] 2020-10-19 2020-10-19 Laboratory Lab, Adc Fam Pob I [facility] 1.2. 840.114 [id number] Univers 13:13:57 13:33:57 Only Marlys Benitez 350.1.13.10 ity of [place] 4.2.7.2.686 Good as Professio [phone] [facility] [address] [place] Office Building One 2020-10-19 2020-10-19 Outpatient R [facility] [id number] Univers 13:00:00 13:00:00 ity of [facility] 2020-10-19 2020-10-19 Letter Doctor ADARSH Sevilla.2.840.114 [id number] Univers 00:00:00 00:00:00 (Out) Unassigned, UNIQUE 350.1.13.10 ity of [place] [facility] 4.2.7.2.686 Good as [phone] [address] 2020-04-27 2020-04-27 Outpatient R [facility] [id number] Univers 11:40:00 11:40:00 ity of [facility] 2020-04-27 2020-04-27 Laboratory Lab, [facility] 1.2.840.114 [id number] 11:12:10 11:32:10 Only Fam Pob I Health 350.1.13.10 [place] 4.2.7.2.686 Professio [phone] [place] [address] Office Building [facility] 2020-04-27 2020-04-27 Laboratory Lab, [facility] Fam Pob I [facility] 1.2. 840.114 [id number] Univers 11:12:10 11:32:10 Only Marlys Benitez Health 350.1.13.10 ity of [place] 4.2.7.2.686 Good as Professio [phone] Me dical [address] Office Building [facility] 2019-12-16 2019-12-16 Emergency Megan, [facility] [id number] 16:05:32 18:09:00 Suzannakrystal R [place] 350.1.13.10 [place] 4.2.7.2.686 [place] [phone] [facility] 2019-12-16 2019-12-16 Emergency Megan, [facility] 1.2.630.724 [id number] Univers 16:05:32 18:09:00 Katye R [place] 350.1.13.10 i ty of [place] 4.2.7.2.686 [place] [phone] [address] 2019-12-16 2019-12-16 Emergency X MEGAN, [facility] ERT [id number] Univers 16:05:32 18:09:00 KATYE ity of [facility] 2019-10-07 2019-10-07 Outpatient R RADIOLOGY [facility] [id number] Univers 13:42:59 23:59:00 ity of [facility] 2019-09-13 2019-09-13 Outpatient R RADIOLOGY [facility] [id number] Univers 13:27:23 23:59:00 ity of [facility] 2017-03-19 2017-03-20 Outpt Diag nullFlavo [facility] [id number] Memoria 17:26:00 04:59:00 Services r Outpatient 02 l Imaging [facility] 2017-03-19 2017-03-20 Outpt Diag nullFlavo [facility] [id number] Memoria 17:26:00 04:59:00 Services r Outpatient 02 l [facility] 2017-03-19 2017-03-19 Outpatient Hero [facility] [id number] 12:26:00 23:59:00 Hair [facility] 2017-03-19 2017-03-19 Outpatient MHIE MHIE [id number] Memoria 13:00:00 13:00:00 06 [facility] 2017-03-19 2017-03-19 Outpatient MHIE MHIE [id number] Memoria 13:00:00 13:00:00 06 [facility] 2017-02-10 2017-02-10 Outpatient MHIE MHIE [id number] Memoria 13:00:00 13:00:00 04 [facility] 2017-02-10 2017-02-10 Outpatient MHIE MHIE [id number] Memoria 13:00:00 13:00:00 04 [facility] 2016-12-12 2016-12-13 Bedded nullFlavo [facility] [id number] Memoria 21:43:00 16:35:00 Outpatient r [place] 04 [facility] 2016-12-12 2016-12-13 Bedded nullFlavo [facility] [id number] Memoria 21:43:00 16:35:00 Outpatient r [place] 04 [facility] 2016-12-12 2016-12-13 Outpatient Hero [facility] [id number] 15:43:00 10:35:00 Hair [facility] 2016-12-12 2016-12-12 Outpatient MHIE MHIE [id number] Memoria 08:00:00 08:00:00 05 [facility] 2016-12-12 2016-12-12 Outpatient MHIE MHIE [id number] Memoria 08:00:00 08:00:00 05 [facility] 2016-11-13 2016-11-14 Day nullFlavo [facility] [id number] Memoria 12:06:00 05:59:00 Surgery r [place] 03 [facility] 2016-11-13 2016-11-14 Day nullFlavo [facility] [id number] Memoria 12:06:00 05:59:00 Surgery r [place] 03 [facility] 2016-11-13 2016-11-13 Outpatient Hero [facility] [id number] 06:06:00 23:59:00 [place] 2016-11-13 2016-11-13 Outpatient MHIE MHIE [id number] Memoria 08:30:00 08:30:00 03 [facility] 2016-11-13 2016-11-13 Outpatient MHIE MHIE [id number] Memoria 08:30:00 08:30:00 03 [facility] 2016-10-28 2016-10-28 Outpatient MHIE MHIE [id number] Memoria 09:10:00 09:10:00 02 [facility] 2016-10-28 2016-10-28 Outpatient MHIE MHIE [id number] Memoria 09:10:00 09:10:00 02 [facility] 2016-10-16 2016-10-16 Bedded nullFlavo [facility] [id number] Memoria 13:04:00 17:30:00 Outpatient r [place] 01 [facility] 2016-10-16 2016-10-16 Bedded nullFlavo [facility] [id number] Memoria 13:04:00 17:30:00 Outpatient r [place] 01 [facility] 2016-10-16 2016-10-16 Outpatient Hero [facility] [id number] 07:04:00 11:30:00 Hair [facility] 2016-10-14 2016-10-15 Outpt Diag nullFlavo [facility] [id number] Memoria 19:11:00 05:59:00 Services r Outpatient 01 l Imaging [facility] 2016-10-14 2016-10-15 Outpt Diag nullFlavo [facility] [id number] Memoria 19:11:00 05:59:00 Services r Outpatient 01 l [facility] 2016-10-14 2016-10-14 Outpatient Hero Jama [facility] [id number] 13:11:00 23:59:00 Hair [facility] 2016-10-07 2016-10-08 Outpt Diag nullFlavo [facility] [id number] Memoria 17:07:00 05:59:00 Services r Outpatient 00 [facility] 2016-10-07 2016-10-08 Outpt Diag ramonFlavo [facility] [id number] Memoria 17:07:00 05:59:00 Services r Outpatient 00 l Imaging [place] Last 2016-10-07 2016-10-07 Outpatient Hero [facility] [id number] 11:07:00 23:59:00 Hair 00 [place] 2016-10-07 2016-10-07 Outpatient RADHA RADHA [id number] Memoria 09:00:00 09:00:00 00 l [place] 2016-10-07 2016-10-07 Outpatient RADHA RADHA [id number] Memoria 09:00:00 09:00:00 00 l [place] Results Test Description Test Test Results Result Source Time Comments Comments XR CERVICAL 2020-10- HISTORY: ?Neck pain. Uni versity of SPINE 3 FINDINGS: [place], [place] Medic al 20:31:15 open-mouth [...] C4-C5, C5-C6 and C6-C7. XR CHEST 2 VW 2019-12- No evidence of acute U niversity of 06 cardiopulmonary [place] [facility] 23:01:21 disease.2 VIEWS OF THE Br [...] Comme nts Influenza A (test code = 28169-8) Negative Negative Influenza B (test code = 58941-4) Negative Negative Lab Interpretation (test code = 53158-7) Normal [facility] [id number] 22:40:00 Test Item Value Reference Range Interpretation Comments Streptococcus pyogenes (group A) Negative Negative antigen (test code = 73614-0) Lab Interpretation (test code = Normal 78861-8) [facility]
--- NOTE | 2022-12-17 12:29 | RAD REPORT ---
EXAM DESCRIPTION: RAD - Chest Single View - 12/17/2022 11:41 am CLINICAL HISTORY: PAIN Chest pain. COMPARISON: Chest Single View dated 10/27/2022; Chest Pa And Lat (2 Views) dated 03/05/2021; Chest Pa And Lat (2 Views) dated 07/11/2019; Chest Pa And Lat (2 Views) dated 11/04/2016 FINDINGS: Portable technique limits examination quality. The lungs are grossly clear. The heart is normal in size. No displaced fractures.Cervical hardware pl ate. IMPRESSION: No acute intrathoracic process suspected.
--- NOTE | 2022-12-17 12:35 | RAD REPORT ---
EXAM DESCRIPTION: RAD - Ribs Left - 12/17/2022 11:41 am CLINICAL HISTORY: Pain;Smash injury COMPARISON: Chest Single View dated 12/17/2022 FINDINGS: No displaced rib fracture is seen. No aggressive rib lesion. Left-sided long shows no evid ence of pneumothorax.
[2022-12-17] MEDS ORDERED: KETOROLAC 30 MG/ML INJ ONE (12:45)
[2022-12-17 13:38] VITALS: BP 145/69; TEMP 98.7; O2SAT 99
--- NOTE | 2023-01-02 15:07 | ER ---
[facility]: Naman Noel Age: 72 yrs Sex: Female : 1950 Arrival Date: 12/17/2022 Time: 10:27 Bed 4 Private MD: Johnie Frank E Diagnosis: Fall on same level from slipping, tripping and stumbling with subsequent striking against object;Contusion of front wall of thorax Presentation: 12/17 10:39 Chief complaint: Patient states: she had a mechanical fall 4 days ago, and is having ap3 left sided rib pain from that fall. Coronavirus screen: At this time, the client does not indicate any symptoms associated with coronavirus-19. Ebola Screen: No symptoms or risks identified at this time. Initial Sepsis Screen: Does the patient meet any 2 criteria? No. Patient's initial sepsis screen is negative. Does the patient have a suspected source of infection? No. Patient's initial sepsis screen is negative. Risk Assessment: Do you want to hurt yourself or someone else? Patient reports no desire to harm self or others. Onset of symptoms was December 13, 2022. 10:39 Method Of Arrival: Ambulatory ap3 10:39 Acuity: RAMON 4 ap3 Triage Assessment: 10:42 General: Appears in no apparent distress. Behavior is calm, cooperative. Pain: ap3 Complains of pain in left lateral anterior chest Pain began 4 days ago following mechanical fall. Neuro: Level of Consciousness is awake, alert, obeys commands, Oriented to person, place, time, situation. Cardiovascular: Patient's skin is warm and dry. Respiratory: Airway is patent Respiratory effort is even, unlabored, Respiratory pattern is regular, symmetrical. Historical: - Allergies: 10:41 Morphine; ap3 - Home Meds: 10:41 metoprolol [Active]; atorvastatin oral [Active]; ap3 - PMHx: 10:41 Hyperlipidemia; Hypertension; ap3 - Immunization history:: Client reports receiving the 2nd dose of the Covid vaccine, Flu vaccine is up to date. - Social history:: Smoking status: Patient reports the use of cigarette tobacco products, smokes one pack cigarettes per day. Screenin:42 [facility] ED Fall Risk Assessment (Adult) History of falling in the last 3 months, ap3 including since admission Yes- single mechanical fall (1 pt) Confusion or Disorientation No (0 pts). Abuse screen: Denies threats or abuse. Nutritional screening: No deficits noted. Tuberculosis screening: No symptoms or risk factors identified. Assessment: 10:45 General: SEE TRIAGE NOTE. bp 12:45 Reassessment: PT DC HOME. bp Vital Signs: 10:39 BP 145 / 69; Pulse 57; Resp 17; Temp 98.7; Pulse Ox 99% ; Weight 83.01 kg; Height 5 ft. ap3 5 in. ; Pain 8/10; 10:39 Body Mass Index 30.45 (83.01 kg, 165.1 cm) ap3 10:39 Pain Scale: Adult ap3 ED Course: 10:27 Patient arrived in ED. mr 10:27 Johnie Frank MD is Private Physician. mr 10:32 Gini Sims FNP-C is [facility]. snw 10:32 Obed Carter DO is Attending Physician. snw 10:41 Triage completed. ap3 10:43 Arm band placed on left wrist. ap3 10:45 Patient has correct armband on for positive identification. Bed in low position. Call bp light in reach. Side rails up X2. 10:52 Pasquale Parker, RN is Primary Nurse. bp 11:42 Chest Single View XRAY In Process Unspecified. EDMS 11:42 Ribs Left XRAY In Process Unspecified. EDMS 12:30 Johnie Frank MD is Referral Physician. snw 12:30 Inserted saline lock: 22 gauge in right forearm, using aseptic technique. Blood bp collected. 12:49 INCENTIVE SPIROMETRY Sent. bp 12:52 No provider procedures requiring assistance completed. Patient did not have IV access bp during this emergency room visit. Administered Medications: 12:49 Drug: Ketorolac IM 15 mg Route: IM; Site: left deltoid; bp 12:52 Follow up: Response: No adverse reaction bp Medication: 12:45 VIS not applicable for this client. bp Outcome: 12:31 Discharge ordered by . snw 12:51 Discharged to home ambulatory. bp 12:51 Condition: stable 12:51 Discharge instructions given to patient, Instructed on discharge instructions, follow up and referral plans. medication usage, Demonstrated understanding of instructions, follow-up care, medications, Prescriptions given X 2. 12:52 Patient left the ED. bp Signatures: Dispatcher [employer] EDMS Gini Sims, [employer] BLOCKMAKER-C R[employer] BLOCKMAKER-Csnw Kendy Cho mr Pasquale Parker, RN RN bp Livier Varela RN RN ap3 Corrections: (The following items were deleted from the chart) 10:42 10:41 Home Meds: Metoprolol Tartrate Oral; ap3 ap3
--- NOTE | 2023-01-02 15:07 | EDPHYS ---
Physician Documentation [facility] Name: Naman Noel Age: 72 yrs Sex: Female : 1950 Arrival Date: 12/17/2022 Time: 10:27 Bed 4 Private MD: Johnie Frank E ED Physician Obed Carter HPI: 12/17 10:42 This 72 yrs old Female presents to ER via Ambulatory with complaints of Fall Injury, snw Rip pain. 10:42 Details of fall: The patient fell from an upright position, while walking. Onset: The snw symptoms/episode began/occurred suddenly, 4 day(s) ago, and became persistent. Associated injuries: The patient sustained injury to the chest, specifically the left lateral anterior chest, pain with breathing, tenderness. Severity of symptoms: At their worst the symptoms were moderate. The patient has not experienced similar symptoms in the past. sees Pain mgmt, takes Hydrocodone. Historical: - Allergies: 10:41 Morphine; ap3 - Home Meds: 10:41 metoprolol [Active]; atorvastatin oral [Active]; ap3 - PMHx: 10:41 Hyperlipidemia; Hypertension; ap3 - Immunization history:: Client reports receiving the 2nd dose of the Covid vaccine, Flu vaccine is up to date. - Social history:: Smoking status: Patient reports the use of cigarette tobacco products, smokes one pack cigarettes per day. ROS: 10:44 Constitutional: Negative for fever, chills, and weight loss, Eyes: Negative for injury, snw pain, redness, and discharge, ENT: Negative for injury, pain, and discharge, Neck: Negative for injury, pain, and swelling, Cardiovascular: Negative for chest pain, palpitations, and edema, Respiratory: Negative for shortness of breath, cough, wheezing, and pleuritic chest pain, Abdomen/GI: Negative for abdominal pain, nausea, vomiting, diarrhea, and constipation, Back: Negative for injury and pain, : Negative for injury, bleeding, discharge, and swelling, Skin: Negative for injury, rash, and discoloration, Neuro: Negative for headache, weakness, numbness, tingling, and seizure, Psych: Negative for depression, anxiety, suicide ideation, homicidal ideation, and hallucinations. 10:44 MS/extremity: Positive for injury or acute deformity, contusion, of the left lateral anterior chest. Exam: 10:41 Constitutional: This is a well developed, well nourished patient who is awake, alert, snw and in no acute distress. Head/Face: Normocephalic, atraumatic. Eyes: Pupils equal round and reactive to light, extra-ocular motions intact. Lids and lashes normal. Conjunctiva and sclera are non-icteric and not injected. Cornea within normal limits. Periorbital areas with no swelling, redness, or edema. ENT: Nares patent. No nasal discharge, no septal abnormalities noted. Tympanic membranes are normal and external auditory canals are clear. Oropharynx with no redness, swelling, or masses, exudates, or evidence of obstruction, uvula midline. Mucous membranes moist. Neck: Trachea midline, no thyromegaly or masses palpated, and no cervical lymphadenopathy. Supple, full range of motion without nuchal rigidity, or vertebral point tenderness. No Meningismus. 10:41 Cardiovascular: Regular rate and rhythm with a normal S1 and S2. No gallops, murmurs, or rubs. Normal PMI, no JVD. No pulse deficits. Respiratory: Lungs have equal breath sounds bilaterally, clear to auscultation and percussion. No rales, rhonchi or wheezes noted. No increased work of breathing, no retractions or nasal flaring. Abdomen/GI: Soft, non-tender, with normal bowel sounds. No distension or tympany. No guarding or rebound. No evidence of tenderness throughout. Back: No spinal tenderness. No costovertebral tenderness. Full range of motion. Skin: Warm, dry with normal turgor. Normal color with no rashes, no lesions, and no evidence of cellulitis. MS/ Extremity: Pulses equal, no cyanosis. Neurovascular intact. Full, normal range of motion. Neuro: Awake and alert, GCS 15, oriented to person, place, time, and situation. Cranial nerves II-XII grossly intact. Motor strength 5/5 in all extremities. Sensory grossly intact. Cerebellar exam normal. Normal gait. Psych: Awake, alert, with orientation to person, place and time. Behavior, mood, and affect are within normal limits. 10:41 Chest/axilla: Palpation: tenderness, that is moderate, of the left lateral anterior chest. Vital Signs: 10:39 BP 145 / 69; Pulse 57; Resp 17; Temp 98.7; Pulse Ox 99% ; Weight 83.01 kg; Height 5 ft. ap3 5 in. ; Pain 8/10; 10:39 Body Mass Index 30.45 (83.01 kg, 165.1 cm) ap3 10:39 Pain Scale: Adult ap3 MDM: 10:32 Patient medically screened. snw 12:32 Differential diagnosis: abrasion, closed head injury, contusion, fracture. Data snw reviewed: vital signs, nurses notes, radiologic studies, plain films. Independent interpretation of the following test(s) in the Emergency Department X-Ray: My interpretation is no noted fractures. Counseling: I had a detailed discussion with the patient and/or guardian regarding: the historical points, exam findings, and any diagnostic results supporting the discharge/admit diagnosis, the presence of at least one elevated blood pressure reading (>120/80) during this emergency department visit, radiology results, the need for outpatient follow up, for definitive care, to return to the emergency department if symptoms worsen or persist or if there are any questions or concerns that arise at home, pt sees pain management. Special discussion: Based on the history and exam findings, there is no indication for further emergent testing or inpatient evaluation. I discussed with the patient/guardian the need to see the primary care provider for further evaluation of the symptoms. 12/17 10:40 Order name: Chest Single View XRAY; Complete Time: 12:30 snw 12/17 10:40 Order name: Ribs Left XRAY; Complete Time: 12:35 snw 12/17 10:43 Order name: INCENTIVE SPIROMETRY snw Administered Medications: 12:49 Drug: Ketorolac IM 15 mg Route: IM; Site: left deltoid; bp 12:52 Follow up: Response: No adverse reaction bp Disposition: 12:24 Co-signature as Attending Physician, Obed LAURENT was immediately available on-site ms3 in the Emergency Department for consultation in the care of the patient. Disposition Summary: 12/17/22 12:31 Discharge Ordered Location: Home snw Condition: Stable snw Diagnosis - Fall on same level from slipping, tripping and stumbling with subsequent striking snw against object - Contusion of front wall of thorax snw Followup: snw - With: Emergency Department - When: As needed - Reason: Worsening of condition Followup: snw - With: Johnie Frank MD - When: 2 - 3 days - Reason: Recheck today's complaints, Continuance of care, Re-evaluation by your physician Discharge Instructions: - Discharge Summary Sheet snw - Rib Contusion snw - Chest Contusion, Adult snw - Fall Prevention in the Home, Adult snw Forms: - Medication Reconciliation Form snw - Thank You Letter snw - Antibiotic Education snw - Prescription Opioid Use snw Prescriptions: - Mobic 7.5 mg Oral Tablet - take 1 tablet by ORAL route once daily take with food; 10 tablet; Refills: 0, snw Product Selection Permitted - orphenadrine citrate 100 mg Oral Tablet Sustained Release - take 1 tablet by ORAL route 2 times per day As needed; 20 tablet; Refills: 0, snw Product Selection Permitted Signatures: Dispatcher [employer] EDMS Gini Sims FNP-C TECHNICAL COMMUNICATION TEACHER-Csnw Pasquale Parker RN RN bp Livier Varela RN RN ap3 Obed Carter DO DO ms3 Corrections: (The following items were deleted from the chart) 10:42 10:41 Home Meds: Metoprolol Tartrate Oral; ap3 ap3
== END 2022-12-17 12:52 | disposition home or self-care (01) ==
LOC: ER 10:24
DX: S20.212A Contusion of left front wall of thorax, initial encounter (principal); W01.10XA Fall on same level from slipping, tripping and stumbling with subsequent striking against unspecified object, initial encounter; I10 Essential (primary) hypertension; F17.210 Nicotine dependence, cigarettes, uncomplicated; Z88.5 Allergy status to narcotic agent
CPT/HCPCS: 71045; 96372; 99284

== ENCOUNTER 2024-02-21 05:59 | Emergency (ER) | payer OTHER ==
[2024-02-21] MEDS ORDERED: FENTANYL CITR 100 MCG/2 ML ONE (07:08)
[2024-02-21] MEDS ORDERED: ONDANSETRON 4 MG/2 ML VIAL ONE (07:09)
[2024-02-21] MEDS ORDERED: KETOROLAC 30 MG/ML INJ ONE (07:09)
[2024-02-21 07:15] LABS: Absolute Eosinophils 0.3 K/uL (0-0.5); Absolute Lymphocytes (CBC) 2.9 K/uL (0.7-4.9); Absolute Monocytes 0.5 K/uL (0.1-1.3); Absolute Neutrophil 4.3 K/uL (1.8-8.0); Basophils % 0.6 % (0-1.3); Eosinophils % 3.7 % (0-4.4); Hematocrit 40.8 % (36.0-45.0); Hemoglobin 13.6 g/dL (12.0-15.0); MCH 27.7 pg (27.0-35.0); MCHC 33.3 g/dL (32.0-36.0); MCV 83.4 fL (80-100); MPV 8.2 fL (7.6-11.3); Monocytes % 6.2 % (3.3-12.3); Neutrophils % 53.5 % (41.7-73.7); Nucleated Red Blood Cells % 0.1 % (0-0); Platelets 232 thou/uL (152-406); RBC Red Blood Cell Count 4.89 M/uL (3.86-4.86); Red Cell Distribution Width 13.6 % (12.1-15.2)
[2024-02-21 07:35] LABS: Albumin 3.9 g/dL (3.4-5.0); Albumin/Globulin Ratio 1.4 (1.1-1.8); Anion Gap 7.4 mEq/L (5.0-15.0); Bilirubin Total 0.6 mg/dL (0.2-1.0); Globulin 2.8 g/dL (2.3-3.5); Potassium 3.4 mEq/L (3.5-5.1); Protein, Total 6.7 g/dL (6.4-8.2)
--- NOTE | 2024-02-21 08:29 | RAD REPORT ---
EXAM DESCRIPTION: CT - Abdomen Pelvis Wo Contrast - 02/21/2024 7:39 am CLINICAL HISTORY: FLANK PAIN COMPARISON: No comparisons TECHNIQUE: Thin cut axial CT imaging of the abdomen and pelvis was performed without IV contrast. Mu ltiplanar reformats were generated and reviewed. All CT scans are performed using dose optimization technique as appropriate and may include automated exposure control or mA/KV adjustment according to patient size. FINDINGS: No suspicious findings in the lung bases. The liver, spleen, adrenal glands, and pancreas show no suspicious findings. Gallbladder and biliary tree are also without suspicious finding. Symmetric renal contour, without suspicious parenchymal findings within limits of noncontrast techniq ue. No evidence of radiopaque calculi or hydroureteronephrosis. No dilated bowel loops or bowel wall thickening. No free air, free fluid or inflammatory stranding. N o hernia, mass or bulky lymphadenopathy. The urinary bladder is without significant finding. No suspicious bony findings. IMPRESSION: No acute intra-abdominal process.
[2024-02-21 08:57] LABS: Specific Gravity 1.009 (1.005-1.030); Sqamous Epithelial None Seen /HPF (None Seen); Urine Bacteria None Seen /HPF (<20); Urine Bilirubin NEGATIVE (Negative); Urine Blood Negative (Negative); Urine Clarity Clear (Clear); Urine Color Light-Yellow (Yellow); Urine Culture Reflex Order NOT NEEDED; Urine Glucose NEGATIVE (Negative); Urine Ketones NEGATIVE (Negative); Urine Microscopic Reflex YN ORDER UMIC; Urine Nitrite NEGATIVE (Negative); Urine Protein NEGATIVE (Negative); Urine RBC None Seen /HPF (None Seen); Urine Urobilinogen Normal (Normal); Urine WBC <5 /HPF (<5)
--- NOTE | 2024-02-21 08:59 | ER ---
Nurse's Notes [facility] Name: Naman Noel Age: 74 yrs Sex: Female : 1950 Arrival Date: 02/21/2024 Time: 05:59 Bed 5 Private MD: Diagnosis: Flank Pain Presentation: 02/20 06:17 Chief complaint: Patient states: I have back pain on the right side of my back. Pain ha1 suddenly happened. 06:17 Coronavirus screen: Vaccine status: Patient reports receiving the 2nd dose of the covid ha1 vaccine. Moderna. Ebola Screen: No symptoms or risks identified at this time. Initial Sepsis Screen: Does the patient meet any 2 criteria? No. Patient's initial sepsis screen is negative. Does the patient have a suspected source of infection? No. Patient's initial sepsis screen is negative. Risk Assessment: Do you want to hurt yourself or someone else? Patient reports no desire to harm self or others. Onset of symptoms was February 21, 2024. 06:17 Method Of Arrival: Ambulatory ha1 06:17 Acuity: RAMON 4 ha1 07:30 Acuity: RAMON 3 ss Triage Assessment: 06:17 General: Appears uncomfortable, Behavior is cooperative, anxious. Pain: Complains of ha1 pain in right low back Pain does not radiate. Pain currently is 10 out of 10 on a pain scale. Quality of pain is described as sharp, shooting, throbbing, Pain began suddenly. Neuro: Level of Consciousness is awake, alert, obeys commands, Oriented to person, place, time, situation. Cardiovascular: Capillary refill < 3 seconds Patient's skin is warm and dry. Respiratory: Airway is patent Respiratory effort is even, unlabored, Respiratory pattern is regular, symmetrical. GI: No signs and/or symptoms were reported involving the gastrointestinal system. Abdomen is round non-distended. : No signs and/or symptoms were reported regarding the genitourinary system. Derm: Skin is pink, warm \\T\\ dry. Musculoskeletal: Reports pain in back. Historical: - Allergies: 06:32 Morphine; ha1 - Home Meds: 06:32 atorvastatin Oral [Active]; metoprolol [Active]; Hydrocodone-Acetaminophen Oral ha1 [Active]; - PMHx: 06:32 Hyperlipidemia; Hypertension; ha1 - PSHx: 06:32 arthritis; ha1 - Immunization history:: Adult Immunizations up to date. - Infectious Disease History:: Denies. - Social history:: Smoking status: Patient reports the use of cigarette tobacco products, smokes one pack cigarettes per day. - Family history:: not pertinent. Screenin:17 [facility] ED Fall Risk Assessment (Adult) History of falling in the last 3 months, ha1 including since admission No falls in past 3 months (0 pts) Confusion or Disorientation No (0 pts) Intoxicated or Sedated No (0 pts) Impaired Gait No (0 pts) Mobility Assist Device Used No (0 pt) Altered Elimination No (0 pt) Score/Fall Risk Level 0 - 2 = Low Risk Oriented to surroundings, Maintained a safe environment, Hourly rounding (assess needs \\T\\ fall precautionary measures) done. Abuse screen: Denies threats or abuse. Denies injuries from another. Abuse screen:. Nutritional screening: No deficits noted. On. Tuberculosis screening: No symptoms or risk factors identified. Assessment: 06:17 Reassessment: see triage assessment. ha1 07:10 Reassessment: Pt ambulatory to restroom to provide urine specimen. . aa5 07:10 Reassessment: Patient is alert, oriented x 3, equal unlabored respirations, skin aa5 warm/dry/pink. 07:24 Reassessment: Pt states "I am sorry I missed the cup and didn't get any urine in it". aa5 aware. Pt back in bed, call light within reach. . 07:35 Reassessment: Pt to CT VIA wheelchair. ss 07:45 Reassessment: Pt back from CT at this time. ss 07:50 Reassessment: Patient is alert, oriented x 3, equal unlabored respirations, skin aa5 warm/dry/pink. Patient states feeling better. 08:30 Reassessment: Patient is alert, oriented x 3, equal unlabored respirations, skin aa5 warm/dry/pink. Patient states feeling better. Vital Signs: 06:17 BP 113 / 77; Pulse 74; Resp 17 S; Temp 97.9(O); Pulse Ox 96% on R/A; Weight 74.84 kg; ha1 Height 5 ft. 5 in. ; 07:10 BP 118 / 77; Pulse 74; Resp 18 S; Pulse Ox 96% on R/A; aa5 07:50 BP 129 / 72; Pulse 67; Resp 18 S; Pulse Ox 100% on R/A; aa5 08:58 BP 113 / 67; Pulse 65; Resp 16; Pulse Ox 97% on R/A; ss 06:17 Body Mass Index 27.46 (74.84 kg, 165.1 cm) ha1 ED Course: 06:05 Patient arrived in ED. gm2 06:13 Roger Hickman MD is Attending Physician. rt 06:17 Patient has correct armband on for positive identification. Bed in low position. Call ha1 light in reach. Side rails up X 1. 06:32 Triage completed. ha1 06:50 Missed attempt(s): 20 gauge in right antecubital area. Bleeding controlled, band aid ha1 applied, catheter tip intact. 06:58 Attending Physician role handed off by Roger Hickman MD ec2 06:58 Chacho Britton MD is Attending Physician. ec2 07:03 Initial lab(s) drawn, by va, sent to lab. Inserted saline lock: 20 gauge in left jb4 antecubital area, using aseptic technique. Blood collected. 07:03 CBC with Diff Sent. jb4 07:03 CMP Sent. jb4 07:03 Lipase Sent. jb4 07:05 Lesly Thomas, RN is Primary Nurse. aa5 07:41 CT Abd/Pelvis - Without Contrast In Process Unspecified. EDMS 08:59 Johnie Haynes MD is Referral Physician. ec2 09:15 No provider procedures requiring assistance completed. IV discontinued, intact, ss bleeding controlled, No redness/swelling at site. Administered Medications: 07:10 Drug: Ondansetron IVP 4 mg IVP once; over 2 minutes Route: IVP; Site: left antecubital; aa5 07:24 Follow up: Response: No adverse reaction aa5 07:25 Drug: TORadol - Ketorolac IVP 15 mg IVP once Route: IVP; Site: left antecubital; aa5 08:00 Follow up: Response: No adverse reaction aa5 07:25 Drug: fentaNYL (PF) IVP 50 mcg IVP once Route: IVP; Site: left antecubital; aa5 08:00 Follow up: Response: No adverse reaction aa5 Medication: 06:37 VIS not applicable for this client. ha1 Outcome: 08:59 Discharge ordered by . [email or web address] 09:15 Discharged to home ambulatory, 09:15 Condition: improved 09:15 Discharge instructions given to patient, Instructed on discharge instructions, follow up and referral plans. medication usage, Demonstrated understanding of instructions, follow-up care, medications, Prescriptions given X 1, 09:15 Patient left the ED. Signatures: Dispatcher [employer] EDLesly Robb RN RN aa5 Neli Gan RN RN Ezio Lomax RN RN jb4 Sallie Zeng RN RN ha1 Roger Hickman MD MD rt Chacho Britton MD MD ec2 Ashley Nobles 2
--- NOTE | 2024-02-21 08:59 | EDPHYS ---
Physician Documentation [facility] Name: Naman Noel Age: 74 yrs Sex: Female : 1950 Arrival Date: 02/21/2024 Time: 05:59 Bed 5 Private MD: ED Physician Chacho Britton HPI: 02/20 06:59 This 74 yrs old Female presents to ER via Ambulatory with complaints of Low Back Pain. rt 06:59 Patient presents to the ED with intermittent right flank pain since last night. She has rt associated nausea. The pain radiates to the lower abdomen. Denies other acute complaints at this time, symptoms are moderate in severity, no other aggravating or alleviating factors.. Historical: - Allergies: 06:32 Morphine; ha1 - Home Meds: 06:32 atorvastatin Oral [Active]; metoprolol [Active]; Hydrocodone-Acetaminophen Oral ha1 [Active]; - PMHx: 06:32 Hyperlipidemia; Hypertension; ha1 - PSHx: 06:32 arthritis; ha1 - Immunization history:: Adult Immunizations up to date. - Infectious Disease History:: Denies. - Social history:: Smoking status: Patient reports the use of cigarette tobacco products, smokes one pack cigarettes per day. - Family history:: not pertinent. ROS: 06:59 Constitutional: Negative for fever, chills, and weight loss, Cardiovascular: Negative rt for chest pain, palpitations, and edema, Respiratory: Negative for shortness of breath, cough, wheezing, and pleuritic chest pain, MS/Extremity: Negative for injury and deformity, Skin: Negative for injury, rash, and discoloration, Neuro: Negative for headache, weakness, numbness, tingling, and seizure, 06:59 Abdomen/GI: Positive for abdominal pain, nausea, 06:59 Back: Positive for flank pain, Negative for injury or acute deformity, Exam: 06:59 Constitutional: This is a well developed, well nourished patient who is awake, alert, rt and in no acute distress. Head/Face: Normocephalic, atraumatic. Chest/axilla: Normal chest wall appearance and motion. Nontender with no deformity. No lesions are appreciated. Cardiovascular: Regular rate and rhythm with a normal S1 and S2. No gallops, murmurs, or rubs. Normal PMI, no JVD. No pulse deficits. Respiratory: Lungs have equal breath sounds bilaterally, clear to auscultation and percussion. No rales, rhonchi or wheezes noted. No increased work of breathing, no retractions or nasal flaring. Abdomen/GI: Soft, non-tender, with normal bowel sounds. No distension or tympany. No guarding or rebound. No evidence of tenderness throughout. Skin: Warm, dry with normal turgor. Normal color with no rashes, no lesions, and no evidence of cellulitis. MS/ Extremity: Pulses equal, no cyanosis. Neurovascular intact. Full, normal range of motion. 06:59 Back: Right CVAT, no midline tenderness, Vital Signs: 06:17 BP 113 / 77; Pulse 74; Resp 17 S; Temp 97.9(O); Pulse Ox 96% on R/A; Weight 74.84 kg; ha1 Height 5 ft. 5 in. ; 07:10 BP 118 / 77; Pulse 74; Resp 18 S; Pulse Ox 96% on R/A; aa5 07:50 BP 129 / 72; Pulse 67; Resp 18 S; Pulse Ox 100% on R/A; aa5 08:58 BP 113 / 67; Pulse 65; Resp 16; Pulse Ox 97% on R/A; ss 06:17 Body Mass Index 27.46 (74.84 kg, 165.1 cm) ha1 MDM: 06:42 Patient medically screened. rt 06:59 Differential diagnosis:. rt 07:02 Data reviewed: vital signs. Transition of care: Care assumed from Roger Hickman MD. ec2 ED course: Patient s/o to me by previous physician, in brief, pt w/ R flank pain, plan to f/u labs, ct imaging and reassess. . 07:43 ED course: CBC is reassuring, metabolic profile shows slight hypokalemia noted, renal ec2 dysfunction with a GFR 56 noted. Lipase within normal ranges. Pending urine studies, CT imaging. . 08:58 ED course: Urine is noninfectious appearing. Will discharge home, have patient ec2 follow-up with GI as needed. Return precautions given.. 0512 06:48 Order name: CBC with Diff; Complete Time: 07:43 rt 02/20 06:48 Order name: CMP; Complete Time: 07:43 rt 0512 06:48 Order name: Lipase; Complete Time: 07:43 rt 02/20 06:48 Order name: Urinalysis w/ reflexes; Complete Time: 08:58 rt 02/20 06:48 Order name: CT Abd/Pelvis - Without Contrast; Complete Time: 08:30 rt 02/20 06:48 Order name: IV Saline Lock; Complete Time: 07:03 rt 02/20 06:48 Order name: Labs collected and sent; Complete Time: 07:03 rt Administered Medications: 07:10 Drug: Ondansetron IVP 4 mg IVP once; over 2 minutes Route: IVP; Site: left antecubital; aa5 07:24 Follow up: Response: No adverse reaction aa5 07:25 Drug: TORadol - Ketorolac IVP 15 mg IVP once Route: IVP; Site: left antecubital; aa5 08:00 Follow up: Response: No adverse reaction aa5 07:25 Drug: fentaNYL (PF) IVP 50 mcg IVP once Route: IVP; Site: left antecubital; aa5 08:00 Follow up: Response: No adverse reaction aa5 Disposition Summary: 02/21/24 08:59 Discharge Ordered Notes: Location: Home ec2 Condition: Stable ec2 Diagnosis - Flank Pain ec2 Followup: ec2 - With: Johnie Haynes MD - When: - Reason: Recheck today's complaints Discharge Instructions: - Discharge Summary Sheet ec2 - Flank Pain, Adult, [id number] ec2 Forms: - Medication Reconciliation Form ec2 - Antibiotic Education ec2 - Prescription Opioid Use ec2 - Patient Portal Instructions ec2 - Leadership Thank You Letter ec2 Prescriptions: - methocarbamol 750 mg Oral tablet - take 1 tablet ORAL route 4 times per day; 15 tablet; Refills: 0, Product ec2 Selection Permitted Signatures: Dispatcher [employer] EDLesly Robb RN RN aa5 Sallie Zeng RN RN ha1 Roger Hickman MD MD rt Chacho Britton MD MD ec2 Corrections: (The following items were deleted from the chart) 06:49 06:49 CBC+H.LAB.BRZ ordered. EDMS EDMS 06:49 06:49 COMPREHENSIVE METABOLIC PANEL+C.LAB.BRZ ordered. EDMS EDMS 06:49 06:49 LIPASE+C.LAB.BRZ ordered. EDMS EDMS 06:49 06:49 Urinalysis+U.LAB.BRZ ordered. EDMS EDMS
[2024-02-21 09:31] VITALS: BP 113/67; TEMP 97.9; O2SAT 97
== END 2024-02-21 09:15 | disposition home or self-care (01) ==
LOC: ER 05:59
DX: R10.9 Unspecified abdominal pain (principal); M54.50 Low back pain, unspecified; I10 Essential (primary) hypertension; F17.210 Nicotine dependence, cigarettes, uncomplicated; Z88.5 Allergy status to narcotic agent
CPT/HCPCS: 85025; 81001; 36415; 83690; 80053; 74176; 96375; 96374; 99284; J3010; J2405